=== PATIENT | male | born 1950 | race Caucasian/White ===

== ENCOUNTER 2022-01-31 18:52 | Outpatient (CLI) | payer MEDICARE, BC, SELFPAY ==
--- OUTSIDE RECORDS SUMMARY | 2022-01-31 07:45 | XMS_ITS | Encounter Summary ---
:1950 Author Organization [facility] Address [address] [address] Care Team Providers Name Role Phone Unavailable Primary Care Provider Unavailable Encounter Details Date Type Department Care Team Description 08/21/2005 [facility] Cr Sawyer MD [address] [place] [address] [address] [place] [address] [facility] [phone] [place], [place] [address] (Wo rk) Social History Tobacco Use Types Packs/Day Years Used Date Smoking Tobacco: Never Assessed Sex Assigned at Date Recorded Not on file documented as of this encounter Plan of Treatment Not on filedocumented as of this encounter Visit Diagnoses Not on filedocumented in this encounter
[2022-01-31 09:57] LABS: Albumin* 3.9 g/dL (3.3-5.0); Chloride* 103 mmol/L (96-114)
[2022-01-31 09:59] LABS: Cholesterol* 179 mg/dL (90-199); Potassium* 4.2 mmol/L (3.6-5.1); Sodium* 138 mmol/L (135-149)
[2022-01-31 10:00] LABS: Alkaline Phosphatase* 48 U/L (40-150); Aspartate Amino Transferase* 35 U/L (12-35); Blood Urea Nitrogen* 41 mg/dL (7-30); Carbon Dioxide* 27 mmol/L (20-32); Creatinine* 1.5 mg/dL (0.5-1.5); Estimated Glomerular Filt Rate 49 ml/min; Glucose* 76 mg/dL (60-115); Total Protein* 6.4 g/dL (6.0-8.3)
[2022-01-31 10:01] LABS: Alanine Aminotransferase* 26 U/L (4-50); Calcium* 9.1 mg/dL (8.4-10.6); HDL Cholesterol* 56 mg/dL (>=40); LDL Cholesterol Calculated 83 mg/dL (<100); Triglycerides* 200 mg/dL (40-149)
[2022-01-31 10:26] LABS: PSA Screen* 2.26 ng/mL (0.10-4.00)
== END 2022-01-31 18:53 | disposition home or self-care (01) ==
PROVIDERS: PCP Family Medicine; Visit Provider Family Medicine
DX: E78.5 Hyperlipidemia, unspecified (principal); Z12.5 Encounter for screening for malignant neoplasm of prostate
CPT/HCPCS: 80053; 80061; 84153

== ENCOUNTER 2022-07-07 09:55 | Outpatient (CLI) | payer MEDICARE, BC, SELFPAY | END 2022-07-07 09:56 | disposition home or self-care (01) | LOC: NFLDREF 09:56 | PROVIDERS: PCP Family Medicine; Visit Provider Family Medicine | DX: M79.671 Pain in right foot (principal); I10 Essential (primary) hypertension | CPT/HCPCS: 84550 ==

== ENCOUNTER 2023-04-11 08:19 | Outpatient (CLI) | payer MEDICARE, BC, SELFPAY ==
--- OUTSIDE RECORDS SUMMARY | 2023-04-13 15:43 | XMS_ITS | Encounter Summary ---
Author Name Unknown Organization [facility] Address [address] [place] [address] Care Team Providers Care Medical Physicist Name Role Phone Elsewhere, Pcp Primary Care Provider Unavailabl e Reason for Referral * Outpatient (Routine) - Closed Specialty Diagnoses / Procedures Referred By Contac t Referred To Contact Diagnoses Arthritis Inflammatory (HCC) Pain Foot Right Pain Low Back Chronic Pain Neck Procedures US Musculoskeletal Hand Right Sivan Garcia M.D., Lianna., C.M., M.P.H. [address] [place] [address] [facility] Referral ID Status Reason Start Date Expiration Date Visits Re quested Visits Authorized [id number] Closed 07/25/2022 07/25/2023 1 1 Reason for Visit * Outpatient (Routine) - Closed Specialty Diagnoses / Procedures Referred By Contac t Referred To Contact Diagnoses Arthritis Inflammatory (HCC) Pain Foot Right Pain Low Back Chronic Pain Neck Procedures US Musculoskeletal Hand Right Sivan Garcia M.D., Lianna., C.M., M.P.H. [address] [place] [address] [facility] Referral ID Status Reason Start Date Expiration Date Visits Re quested Visits Authorized [id number] Closed 07/25/2022 07/25/2023 1 1 Encounter Details Date Type Department Care Team (Latest Contact Info) Description 08/30/2022 10:51 AM CDT - 08/30/2022 12:16 PM CDT Hospital Encounter Department of Radiology, [facility], in [place], [place] [address] [place] [address] Sivan Garcia M.D., Lianna., C.M., M.P.H. [address] [place] [address] Arthritis Inflammatory (HCC); Pain Foot Right; Pain Low Back Chronic; Pain Neck Discharge Disposition: Home or Self Care Social History Tobacco Use Types Packs/Day Years Used Date Smoking Tobacco: Never Passive Smoke Exposure: Never Smokeless Tobacco: Never Alcohol Use Standard Drinks/Week Comments No 0 (1 standard drink = 0.6 oz pur e alcohol) Humiliation, Afraid, Rape, and Kick questionnair e Answer Date Recorded Within the last year, have y ou been afraid of your partner or ex-partner? No 06/26/2022 Within the last year, have y ou been humiliated or emotionally abused in other ways by your partner or ex-partner? No Within the last year, have y ou been kicked, hit, slapped, or otherwise physically hurt by your partner or ex-partner? No 06/26/2022 Within the last year, have y ou been raped or forced to have any kind of sexual activity by your partner or ex-partner? No 06/26/2022 Social Connection and Isolat ion Panel [NHANES] Answer Date Recorded In a typical week, how many times do you talk on the phone with family, friends, or neighbors? Three times a week 06/26/2022 How often do you get togethe r with friends or relatives? More than three times a week 06/26/2022 How often do you attend chur or judaism services? More than 4 times per year 06/26/2022 Do you belong to any clubs o r organizations such as christianity groups, unions, fraternal or athletic groups, or school groups? Yes 06/26/2022 How often do you attend meet ings of the clubs or organizations you belong to? 1 to 4 times per year 06/26/2022 Are you , , di vorced, , never , or living with a partner? 06/26/2022 AUDIT-C Answer Date Recorded Q1: How often do you have a drink containing alc ohol? Monthly or less 06/26/2022 Q2: How many drinks containi ng alcohol do you have on a typical day when you are drinking? 1 or 2 06/26/2022 Q3: How often do you have si x or more drinks on one occasion? Never 06/26/2022 Overall Financial Resource Strain (CARDIA) Answe r Date Recorded How hard is it for you to pa y for the very basics like food, housing, medical care, and heating? Not hard at all 06/26/2022 [facility] of Occupat ional Health - Occupational Stress Questionnaire Answer Date Recorded Do you feel stress - tense, restless, nervous, or anxious, or unable to sleep at night because your mind is troubled all the time - these days? Only a little 06/26/2022 Exercise Vital Sign Answer Date Recorde d On average, how many days pe r week do you engage in moderate to strenuous exercise (like a brisk walk)? 3 days 06/26/2022 On average, how many minutes do you engage in exercise at this level? 30 min 06/26/2022 Hunger Vital Sign Answer Date Recorded Within the past 12 months, y ou worried that your food would run out before you got the money to buy more. Never true 06/27/19 23 Within the past 12 months, t he food you bought just didn't last and you didn't have money to get more. Never true 06/26/2022 PRAPARE - Transportation Answer Date Re corded In the past 12 months, has l ack of transportation kept you from medical appointments or from getting medications? No 11/2022 In the past 12 months, has l ack of transportation kept you from meetings, work, or from getting things needed for daily living? No 06/26/2022 Housing Stability Vital Sign Answer Adan e Recorded In the last 12 months, was t here a time when you were not able to pay the mortgage or rent on time? No 06/26/2022 In the last 12 months, how many places have you lived? 1 06/26/2022 In the last 12 months, was t here a time when you did not have a steady place to sleep or slept in a fdc (including now)? No 06/26/2022 Nutrition Answer Date Recorded Nutrition: EVOO Fat Source No 06/26 On average, how many serving s of fruits and vegetables do you eat per day (serving size is equal to 1 cup or approximately the size of a tennis ball)? 2-3 06/26/2022 Dental Answer Date Recorded Dental: Regular Dentist Yes 06/27/19 Employment Answer Date Recorded Employment status Retired 06/26/2022 Education Answer Date Recorded What is the highest level of school you have completed or the highest degree you have received? Associate degree: occupational, technical, or vocational program 06/26/2022 Sex and Gender Information Value Date Recorded Sex Assigned at Male 04/09/2018 9:30 PM STUDENT CAREER DEVELOPMENT SPECIALIST Gender Identity Male 04/09/2018 9:30 PM STUDENT CAREER DEVELOPMENT SPECIALIST Sexual Orientation Straight 04/09/2018 9: 30 PM STUDENT CAREER DEVELOPMENT SPECIALIST documented as of this encounter Medications at Time of Discharge Medication Sig Dispensed Refills Start Date End Date acetaminophen (TYLENOL ARTHRITIS ORAL) Take 1 tablet by mouth daily as needed (pain). Takes 1 once a day to twice a day 0 07/17/2009 azithromycin (ZITHROMAX) 250 mg tablet Take 250 mg by mouth as needed. 0 04/04/2022 fenofibrate nanocrystallized (TRICOR) 145 mg tablet Take 1 tablet by mouth daily. 0 10/19/2011 Flowflex COVID-19 Ag Home Test kit use as directed* 0 07/26/2022 hydroCHLOROthiazide (HYDRODIURIL) 25 mg tablet Take 1 tablet by mouth daily. 0 12/21/2018 hydrocodone/acetaminophen (VICODIN ORAL) Take 0.5-1 tablets by mouth at bedtime as needed. 5/500 mg (1/2 tab -uses about 3 times a month for back pain) 0 10/19/2011 meloxicam (MOBIC) 15 mg tablet Take 1 tablet by mouth daily. 0 10/19/2011 Rx albuterol (RX PROVENTIL HFA,VENTOLIN HFA) 90 mcg/actuation inhaler Inhale 2 puffs 4 (four) times a day as needed. via song and dance performer tube; may also use every 4 hrs as needed. 0 07/08/2015 sildenafil (REVATIO) 20 mg tablet Take 40mg daily if needed 0 12/21/2018 tiZANidine (ZANAFLEX) 2 mg tablet Take 2 mg by mouth at bedtime. For right leg muscle spasm 0 06/25/2022 methylPREDNISolone (MEDROL) 4 mg tablet Take 1 tablet by mouth daily. 0 07/08/2015 09/22/2022 documented as of this encounter Plan of Treatment Not on file documented as of this encounter Procedures Procedure Name Priority Date/Time Associated Diagnosis Comments US MUSCULOSKELETAL HAND RIGHT 08/30/2022 11:36 AM CDT Arthritis Inflammatory (HCC) Pain Foot Right Pain Low Back Chronic Pain Neck documented in this encounter Results * US Musculoskeletal Hand Right (08/30/2022 11:36 AM CDT) Anatomical Region Laterality Modality Hand, Ultrasound RST LOS, Mu sculoskeletal ARZ LOS, Ultrasound ARZ LOS, Muskuloskeletal FLA LOS Right Ultrasound 08/30/2022 11:1 1 AM CDT Impressions 08/30/2022 11:59 AM CDT Mild grayscale and mild hypervascular synovitis about the wrist. Moderate grayscale and mild to moderate hypervascular synovitis 2nd MCP. Mild to moderate grayscale and hypervascular synovitis 1st MCP. Additional small dystrophic calcifications about the 1st and 2nd MCP suggestive of CPPD appreciated. No other hypervascular synovitis throughout the interrogated MCPs and PIPs. No hypervascular tenosynovitis. No sonographic erosions. Scattered mild areas of chondrocalcinosis as seen on prior radiographs. Overall constellation of findings are nonspecific and could be secondary to degenerative and crystalline arthritis. A superimposed component of inflammatory arthritis is not excluded. Narrative 08/30/2022 11:59 AM CDT EXAM: US MUSCULOSKELETAL HAND RIGHT COMPARISON: Radiographs 07/25/2022 Procedure Note Gal Ellington M.D. - 08/30/2022 EXAM: US MUSCULOSKELETAL HAND RIGHT COMPARISON: Radiographs 07/25/2022 IMPRESSION: Mild grayscale and mild hypervascular synovitis about the wrist. Moderategrayscale and mild to moderate hypervascular synovitis 2nd MCP. Mild to moderategrayscale and hypervascular synovitis 1st MCP. Additional small dystrophic calcifications about the1st and 2nd MCP suggestive of CPPD appreciated. No other hypervascular synovitis throughout theinterrogated MCPs and PIPs. No hypervascular tenosynovitis. No sonographic erosions. Scattered mild areasof chondrocalcinosis as seen on prior radiographs. Overall constellation of findings are nonspecific and could be secondaryto degenerative and crystalline arthritis. A superimposed component of inflammatory arthritisis not excluded. Sivan Garcia M.D., Lianna., C.M., M.P.H. IMG US PROCEDURES documented in this encounter Visit Diagnoses Diagnosis Arthritis Inflammatory (HCC) Pain Foot Right Pain Low Back Chronic Pain Neck documented in this encounter Care Teams Medical Physicist Relationship Specialty Start Date End Date Elsewhere, Pcp PCP - General Family Medicine 03/09/17 documented as of this encounter
--- OUTSIDE RECORDS SUMMARY | 2023-04-13 15:43 | XMS_ITS | Clinical Summary ---
Author Name Unknown Organization [facility] Address [address] [address] Care Team Providers Care Auto Top Mechanic Name Role Phone Tez Diane MD Primary Care Provider [phone] Source Comments You are receiving this document as you are listed as the primary care provider,follow-up provider, or the patient has been referred to you for consultation.This is in compliance with the Medicare and[facility] Hospital[facility] EHR Incentive Program,which states Providers who transition their patient to another setting of careor provider of care or refers their patient to another provider of care shouldprovide summary care record for each transition of care or referral. [facility] Allergies Active Allergy Reactions Criticality Noted Date Comments Berries 11/23/2016 Strawberries Lactase-Lactobacillus 11/23/2016 Medications Medication Sig Dispensed Refills Start Date End Date Status fenofibrate (TRICOR) 145 MG tablet Take 145 mg by mouth daily. 0 Active methylPREDNISolone (MEDROL) 2 MG tablet Take 2 mg by mouth daily. 0 Active hydroCHLOROthiazide 12.5 MG capsule Take 12.5 mg by mouth daily. 0 Active Meloxicam (MOBIC) 15 MG tablet Take 15 mg by mouth daily. 0 Active Active Problems Problem Noted Date Diagnosed Date Rupture of left proximal biceps tendon 9 Sternoclavicular (joint) (ligament) sprain 12/12 Immunizations Name Administration Dates Next Due Flu Vac (3+ yrs) 12/31/2007, 7,03/08/2006,01/21/2005,01/05/2004,,12/21/2001,02/27/2001 PPSV23 (Pneumovax) 02/27/2001 Td 12/21/2001 Social History Tobacco Use Types Packs/Day Years Used Date Smoking Tobacco: Never Smokeless Tobacco: Never Alcohol Use Standard Drinks/Week Comments Not Asked 0 (1 standard drink = 0.6 oz pur e alcohol) Sex and Gender Information Value Date Recorded Sex Assigned at Not on file Gender Identity Not on file Sexual Orientation Not on file Last Filed Vital Signs Vital Sign Reading Time Taken Comments Blood Pressure 137/90 09/27/2018 11:08 AM CDT Pulse 68 09/23/2009 2:15 PM CDT Temperature 36.7 ??C (98.1 ??F) 09/27/2018 1 1:08 AM CDT Respiratory Rate - - Oxygen Saturation - - Inhaled Oxygen Concentration - - Weight 105.5 kg (232 lb 9.6 oz) 019 11:08 AM CDT Height 167.6 cm (5' 6) 09/27/2018 11:0 8 AM CDT Body Mass Index 37.54 09/27/2018 11:08 AM CDT Plan of Treatment Health Maintenance Due Date Last Done Comments Colon Cancer Screening Plan Due 1950 Hep C Screening (Preventive Services) 1950 Medicare Annual Wellness Visit 1950 COVID-19 Vaccine (#1) 05/08/1951 Cholesterol 1984 Zoster/Shingles (2 of 3) 04/17/2012 02/21/2012 Influenza (#1) 2022 12/20/2019, 10/0 06/2018, 01/04/2017, Additional history exists DTaP/Tdap/Td (3 - Tdap) 02/19/2023 02/20/20 13, 02/04/2013, 12/21/2001 Pneumococcal 65+ Yrs Completed 01/25/2017, 01/15/2015, 03/20/2007, Additional history exists HepA Aged Out No longer eligi ble based on patient's age to complete this topic HepB Aged Out No longer eligi ble based on patient's age to complete this topic Hib Aged Out No longer eligi ble based on patient's age to complete this topic IPV (Polio) Aged Out No longer eligi ble based on patient's age to complete this topic MCV4 Aged Out No longer eligi ble based on patient's age to complete this topic Care Teams Auto Top Mechanic Relationship Specialty Start Date End Date Tez Diane MD [address] [place], [place] [id number] PCP - General 08/12/11
--- OUTSIDE RECORDS SUMMARY | 2023-04-13 15:43 | XMS_ITS | Clinical Summary ---
Author Name Unknown Organization [facility] Address [address] [place] [address] Care Team Providers Care District Manager Primary Care Sales Name Role Phone Elsewhere, Pcp Primary Care Provider Unavailabl e Source Comments Patient records contain information from all sites at [facility]. For routine questions regarding patient records, call [phone] during business hours, M-F 8:00 AM - 5:00 PM Central Time. Record requests for emergency care only can be directed to [phone] at any time.[facility] Allergies Active Allergy Reactions Criticality Noted Date Comments Latex Other (see comments) 07/15/[address] guided epidural injection [place] Other (see comments),Itching High 11/23/2016 Strawberries Fresh Strawberries only Medications Medication Sig Dispensed Refills Start Date End Date Status Rx albuterol (RX PROVENTIL HFA,VENTOLIN HFA) 90 mcg/actuation inhaler Inhale 2 puffs 4 (four) times a day as needed. via coal equipment operator tube; may also use every 4 hrs as needed. 0 07/08/2015 Active meloxicam (MOBIC) 15 mg tablet Take 1 tablet by mouth daily. 0 10/19/2011 Active fenofibrate nanocrystallized (TRICOR) 145 mg tablet Take 1 tablet by mouth daily. 0 10/19/2011 Active acetaminophen (TYLENOL ARTHRITIS ORAL) Take 1 tablet by mouth daily as needed (pain). Takes 1 once a day to twice a day 0 07/17/2009 Active hydrocodone/acetaminophe n (VICODIN ORAL) Take 0.5-1 tablets by mouth at bedtime as needed. 5/500 mg (1/2 tab -uses about 3 times a month for back pain) 0 10/19/2011 Active sildenafil (REVATIO) 20 mg tablet Take 40mg daily if needed 0 12/21/2018 Active hydroCHLOROthiazide (HYDRODIURIL) 25 mg tablet Take 1 tablet by mouth daily. 0 12/21/2018 Active tiZANidine (ZANAFLEX) 2 mg tablet Take 2 mg by mouth at bedtime. For right leg muscle spasm 0 06/25/2022 Active azithromycin (ZITHROMAX) 250 mg tablet Take 250 mg by mouth as needed. 0 04/04/2022 Active Flowflex COVID-19 Ag Home Test kit use as directed* 0 07/26/2022 Activ e methylPREDNISolone (MEDROL) 4 mg tablet Take 4 mg by mouth daily. 0 Active mv-min/folic/K1/lycopen/ lutein (MEN 50 PLUS MULTIVITAMIN ORAL) Take 1 tablet by mouth daily. 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 from Last 3 Months Immunizations Name Administration Dates Next Due HZV (ZOSTAVAX) 02/21/2012 Influenza Split 01/28/2013,02/21/2012 Pneumococcal, Unspecified 03/20/2007 Tdap 02/04/2013 Social History Tobacco Use Types Packs/Day Years [...] How often do you attend chur or buddhist services? More than 4 times per year 06/26/2022 Do you belong to any clubs o r organizations such as anabaptist groups, unions, fraternal or athletic groups, or [...] and heating? Not hard at all 06/26/2022 [facility] of Occupat ional Health - Occupational Stress [...] money to buy more. Never true 06/27/19 Within the past 12 months, t he [...] place to sleep or slept in a senior living (including now)? No 06/26/2022 Nutrition Answer Date [...] Sex Assigned at Male 04/09/2018 9:30 PM FRONT OFFICE CLERK Gender Identity Male 04/09/2018 9:30 PM FRONT OFFICE CLERK Sexual Orientation Straight 04/09/2018 9: 30 PM FRONT OFFICE CLERK Last Filed Vital Signs Vital Sign Reading Time Taken Comments Blood Pressure 136/89 07/25/2022 12:58 PM CDT Pulse 76 07/25/2022 12:58 PM CDT Temperature 36.2 ??C (97.2 ??F) 07/25/2022 1 2:58 PM CDT Respiratory Rate - - Oxygen Saturation 97% 06/28/2022 8:51 AM CDT Inhaled Oxygen Concentration - - Weight 94.2 kg (207 lb 10.8 oz) 023 12:58 PM CDT Height 165.6 cm (5' 5.2) 07/25/2022 12 :58 PM CDT Body Mass Index 34.35 07/25/2022 12:58 PM CDT Plan of Treatment Health Maintenance Due Date Last Done Comments CT Colonography 1950 Cologuard 1950 FIT 1950 Zoster Vaccines (2 of 3) 04/17/2012 02/21/2012 COVID-19 Vaccine (4 - 2022-2 4 season) 2022 02/18/2021, 06/23/2020, 05/26/2020 DTaP,Tdap,and Td Vaccines (3 - Td or Tdap) 02/19/2023 02/19/2013, 02/04/2013, 12/21/2001 Depression Screening (Annual PHQ-2) 03/20/2023 Fall Risk Screen (Annual) 03/20/2023 Fasting Glucose for Diabetes Screening 07/25/2025 07/25/2022, 04/05/2019, 01/20/2019, Additional history exists Colonoscopy 09/12/2032 09/12/2022, 05/2012 (Performed elsewhere), 02/20/2003 Colorectal Cancer Screening 09/12/2032 Pneumococcal vaccine (65+ years) Completed 01/25/2017, 01/15/2015, 03/20/2007, Additional history exists Influenza Vaccine Completed 01/26/2023, , 02/09/2021, Additional history exists Medical Devices Implanted Type Area Manager Of Compensation Device Identifier Shelf Expiration Date Model / Serial / Lot Ocular Lens-03/20/1997 Implanted:03/1997 (Quantity not on file) Ocular Lens Bilatera l: Eye Description:Both eyes Spine Implant-03/20/19 20 Implanted:03/2019 (Quantity not on file) Spine Implant Bilatera l: Back Care Teams District Manager Primary Care Sales Relationship Specialty Start Date End Date Elsewhere, Pcp PCP - General Family Medicine 03/09/17
--- OUTSIDE RECORDS SUMMARY | 2023-04-13 15:43 | XMS_ITS | Encounter Summary ---
Author Name Unknown Organization [facility] Address [address] [place] [address] Care Team Providers Care Designer Architect Name Role Phone Elsewhere, Pcp Primary Care Provider Unavailabl e Reason for Visit * Reason Comments Pain * Appointment Request (Routine) - Closed Specialty Diagnoses / Procedures Referred By Contac t Referred To Contact Orthopedic Surgery Diagnoses Subluxation Sternoclavicular Closed Initial Referral ID Status Reason Start Date Expiration Date Visits Re quested Visits Authorized [id number] Closed 06/23/2022 06/23/2023 1 1 Encounter Details Date Type Department Care Team (Latest Contact Info) Description 09/23/2022 11:00 AM CDT Comprehensive Visit Department of Orthopedic Surgery in [place], [place] [address] [place] [address] José Wright M.D., Ph.D. [address] [place] [address] Pain Shoulder Right (Primary Dx) Social History Tobacco Use Types Packs/Day Years [...] How often do you attend chur or latter-day services? More than 4 times per year 06/26/2022 Do you belong to any clubs o r organizations such as quaker groups, unions, fraternal or athletic groups, or [...] and heating? Not hard at all 06/26/2022 [facility] of Occupat ional Health - Occupational Stress [...] place to sleep or slept in a long-term (including now)? No 06/26/2022 Nutrition Answer Date [...] Sex Assigned at Male 04/09/2018 9:30 PM APPLIANCE SERVICE TECHNICIAN Gender Identity Male 04/09/2018 9:30 PM APPLIANCE SERVICE TECHNICIAN Sexual Orientation Straight 04/09/2018 9: 30 PM APPLIANCE SERVICE TECHNICIAN documented as of this encounter Progress Notes * José Wright M.D., Ph.D. - 09/23/2022 11:00 AM CDT This patient returns today for a follow-up evaluation regarding his right SC joint. I saw this patient for the first time in consultation in the year 2018. 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 Later on, he suffered an accident that has created additional instability of the joint and now he has more discomfort and more difficulty. 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 He came today with a new CT scan that shows evidence of progression of his osteoarthritis more evidence of instability. At this point, his seems to be more affected by his condition and his approaching a position where he might consider surgery but he is not decided just yet. We had a long discussion 1 more time about what surgery typically entails, which includes resection of the medial end of the clavicle and reconstruction of the ligaments of the SC joint with an allograft. We discussed the details of the operation as well as possible complications, which include but are not limited to infection, nerve injury, bleeding, blood clots, persistent pain, persistent stiffness,and failure of the ligament to heal with recurrent instability. He is going to go home and think about it. If he calls requesting surgery, he can be scheduled for a right SC joint resection and reconstruction at his convenience. All questions were answered. documented in this encounter Plan of Treatment Not on file documented as of this encounter Visit Diagnoses Diagnosis Pain Shoulder Right- Primary documented in this encounter Care Teams Designer Architect Relationship Specialty Start Date End Date Elsewhere, Pcp PCP - General Family Medicine 03/09/17 documented as of this encounter
--- OUTSIDE RECORDS SUMMARY | 2023-04-13 15:43 | XMS_ITS | Encounter Summary ---
Author Name Unknown Organization [facility] Address [address] [place] [address] Care Team Providers Care Sulfuric Acid Plant Supervisor Name Role Phone Elsewhere, Pcp Primary Care Provider Unavailabl e Reason for Referral * MRI/CAT/PET Scan (Routine) - Closed Specialty Diagnoses / Procedures Referred By Contac t Referred To Contact Radiology Diagnoses Pain Shoulder Right Procedures CT Sternoclavicular Joint Bilateral without IV Contrast Trupti Aguayo P.A.-C., M.S. 200 [place] [phone] [facility] Referral ID Status Reason Start Date Expiration Date Visits Re quested Visits Authorized [id number] Closed 07/05/2022 07/05/2023 1 1 Reason for Visit * MRI/CAT/PET Scan (Routine) - Closed Specialty Diagnoses / Procedures Referred By Contac t Referred To Contact Radiology Diagnoses Pain Shoulder Right Procedures CT Sternoclavicular Joint Bilateral without IV Contrast Trupti Aguayo P.A.-C., M.S. [address] [place] [phone] [facility] Referral ID Status Reason Start Date Expiration Date Visits Re quested Visits Authorized [id number] Closed 07/05/2022 07/05/2023 1 1 Encounter Details Date Type Department Care Team (Latest Contact Info) Description 09/23/2022 7:29 AM CDT - 09/23/2022 11:59 PM CDT Hospital Encounter Department of Radiology, [facility], in [place], [place] [address] [place] [address] Trupti Aguayo P.A.-C., M.S. [address] [place] [phone] Pain Shoulder Right Discharge Disposition: Home or Self Care Social [...] 06/26/2022 How often do you attend chur ch or adventism services? More than 4 times per year 06/26/2022 Do you belong to any clubs o r organizations such as alevism groups, unions, fraternal or athletic groups, or [...] and heating? Not hard at all 06/26/2022 [facility] - Occupational [...] place to sleep or slept in a intermediate (including now)? No 06/26/2022 Nutrition Answer Date [...] Sex Assigned at Male 04/09/2018 9:30 PM CRM TECHNICAL LEAD Gender Identity Male 04/09/2018 9:30 PM CRM TECHNICAL LEAD Sexual Orientation Straight 04/09/2018 9: 30 PM CRM TECHNICAL LEAD documented as of this encounter Medications at [...] (four) times a day as needed. via shirt folding machine operator tube; may also use every 4 hrs as needed. 0 07/08/2015 sildenafil (REVATIO) 20 mg tablet Take 40mg daily if needed 0 12/21/2018 tiZANidine (ZANAFLEX) 2 mg tablet Take 2 mg by mouth at bedtime. For right leg muscle spasm 0 06/25/2022 documented as of this encounter Plan of Treatment Not on file documented as of this encounter Procedures Procedure Name Priority Date/Time Associated Diagnosis Comments CT STERNOCLAVICULAR JOINT BILATERAL WITHOUT IV CONTRAST RAD - Routine (most inpatients and all outpatients) 09/23/2022 7:47 AM CDT Pain Shoulder Right documented in this encounter Results * CT Sternoclavicular Joint Bilateral without IV Contrast (09/23/2022 7:47 AM CDT) Anatomical Region Laterality Modality Shoulder, Upper Extremity, Musculoskeletal RST LOS, Musculoskeletal ARZ LOS, Muskuloskeletal FLA LOS Bilateral Computed Tomography, Computed Tomography 09/23/2022 8:54 AM CDT Impressions 09/23/2022 11:18 AM CDT Bilateral sternoclavicular joint osteoarthritis, greater on the right, slightly progressed from 08/15/2017. Narrative 09/23/2022 11:18 AM CDT EXAM: ??CT STERNOCLAVICULAR JOINT BILATERAL WITHOUT IV CONTRAST 3D images were created on an independent workstation as ordered by the treating provider and reviewed by the radiologist to assist in treatment planning. COMPARISON: ??CT chest 08/15/2017 FINDINGS: Right sternoclavicular joint osteoarthritis characterized by joint space narrowing, subchondral sclerosis and cystic changes with surrounding synovial thickening, slightly progressed from 08/15/2018. There is irregularity of the medial right clavicle which may be secondary to degenerative change or remote trauma and is similar in appearance to the comparison chest CT. Moderate left sternoclavicular joint osteoarthritis characterized by mild joint space narrowing and subchondral cystic changes, also slightly progressed from prior. Tiny osseous debris is present about the sternoclavicular joints. Alignment at bilateral sternoclavicular joint is maintained. No acute fracture. Procedure Note Ryan Rosales M.D. - 09/23/2022 EXAM: CT STERNOCLAVICULAR JOINT BILATERAL WITHOUT IV CONTRAST 3D images were created on an independent workstation as ordered by thetreating provider and reviewed by the radiologist to assist in treatment planning. COMPARISON: CT chest 08/15/2017 FINDINGS: Right sternoclavicular joint osteoarthritis characterized by joint spacenarrowing, subchondral sclerosis and cystic changes with surrounding synovial thickening,slightly progressed from 08/15/2018. There is irregularity of the medial right clavicle which maybe secondary to degenerative change or remote trauma and is similar in appearance to thecomparison chest CT. Moderate left sternoclavicular joint osteoarthritis characterized by mildjoint space narrowing and subchondral cystic changes, also slightly progressed from prior. Tinyosseous debris is present about the sternoclavicular joints. Alignment at bilateral sternoclavicularjoint is maintained. No acute fracture. IMPRESSION: Bilateral sternoclavicular joint osteoarthritis, greater on the right,slightly progressed from 08/15/2017. Trupti Aguayo P.A.-C., M.S. IMG CT [place] OCEDURES documented in this encounter Visit Diagnoses Diagnosis Pain Shoulder Right documented in this encounter Care Teams Sulfuric Acid Plant Supervisor Relationship Specialty Start Date End Date Elsewhere, Pcp PCP - General Family Medicine 03/09/17 documented as of this encounter
--- OUTSIDE RECORDS SUMMARY | 2023-04-13 15:43 | XMS_ITS | Encounter Summary ---
Author Name Unknown Organization [facility] Address [address] [place] [address] Care Team Providers Care Recycling Sorter Name Role Phone Elsewhere, Pcp Primary Care Provider Unavailabl e Encounter Details Date Type Department Care Team (Latest Contact Info) Description 09/26/2022 9:48 AM CDT - 09/26/2022 11:59 PM CDT Hospital Encounter Department of Laboratory Medicine and Pathology, [facility] in [place], [place] [address] [place] [phone] Sivan Garcia M.D., Lianna., C.M., M.P.H. [address] [place] [phone] Arthritis Inflammatory (HCC); Pain Foot Right; Pain [...] How often do you attend chur or yarsanism services? More than 4 times per year 06/26/2022 Do you belong to any clubs o r organizations such as evangelical groups, unions, fraternal or athletic groups, or [...] and heating? Not hard at all 06/26/2022 [facility] ional Health - Occupational [...] place to sleep or slept in a fci (including now)? No 06/26/2022 Nutrition Answer Date [...] Sex Assigned at Male 04/09/2018 9:30 PM INK TECHNICIAN Gender Identity Male 04/09/2018 9:30 PM INK TECHNICIAN Sexual Orientation Straight 04/09/2018 9: 30 PM INK TECHNICIAN documented as of this encounter Medications at [...] 1 tablet by mouth daily. 0 10/19/2011 methylPREDNISolone (MEDROL) 4 mg tablet Take 4 mg by mouth daily. 0 mv-min/folic/K1/lycopen/lute in (MEN 50 PLUS MULTIVITAMIN ORAL) Take 1 tablet by mouth daily. 0 Rx albuterol (RX PROVENTIL HFA,VENTOLIN HFA) 90 mcg/actuation inhaler Inhale 2 puffs 4 (four) times a day as needed. via ductfixing plumber tube; may also use every 4 hrs [...] Procedure Name Priority Date/Time Associated Diagnosis Comments IRON AND TOT IRON-BINDING CAPACITY, S/P Routine 09/26/2022 10:07 AM CDT Arthritis Inflammatory (HCC) Pain Foot Right Pain Low Back Chronic Pain Neck CBC WITH DIFFERENTIAL, B Routine 09/26/2022 10:07 AM CDT Arthritis Inflammatory (HCC) Pain Foot Right Pain Low Back Chronic Pain Neck C-REACTIVE PROTEIN (CRP), S/P Routine 09/26/2022 10:07 AM CDT Arthritis Inflammatory (HCC) Pain Foot Right Pain Low Back Chronic Pain Neck BUN (BLOOD UREA NITROGEN), S/P Routine 09/26/2022 10:07 AM CDT Arthritis Inflammatory (HCC) Pain Foot Right Pain Low Back Chronic Pain Neck CREATININE WITH EGFR, S/P Routine 09/26/2022 10:07 AM CDT Arthritis Inflammatory (HCC) Pain Foot Right Pain Low Back Chronic Pain Neck documented in this encounter Results * (ABNORMAL) Iron and Total Iron-Binding Capacity (09/26/2022 10:07 AM CDT) Pathologist [facility] Iron 100 50 - 150 mcg/dL 09/26/2022 12:13 PM CDT DTL Total Iron Binding Capacity 426(H) 250 - 400 mcg/dL 09/26/2022 12:13 PM CDT DTL Percent Saturation 23 14 - 50 % 09/26/2022 12:13 PM CDT DTL Blood (Blood, Venous) 09/26/2022 10:07 AM CDT 09/26/2022 11:29 AM CDT Sivan Garcia M.D., M.D., C.M., M.P.H. LAB BLOOD ADD-ON Performing Organization Address City/[facility]/ZIP Co de Phone Number [facility] 200 [place] [address], [facility] 200 [place] [address] * (ABNORMAL) CRP (C-Reactive Protein) (09/26/2022 10:07 AM CDT) C-Reactive Protein (CRP), S 6.2(H) <5.0 mg/L 09/26/2022 12:13 PM CDT DTL Blood (Blood, Venous) 09/26/2022 10:07 AM CDT 09/26/2022 11:29 AM CDT Sivan Garcia M.D., Lianna., C.M., M.P.H. LAB BLOOD ADD-ON Performing Organization Address City/[facility]/ZIP Co de Phone Number [facility] 200 [place], [place] [phone] [place] [address] [facility] 200 [place] [address] * (ABNORMAL) BUN (Blood Urea Nitrogen) (09/26/2022 10:07 AM CDT) BUN (Blood Urea Nitrogen), S 35(H) 8 - 24 mg/dL 09/26/2022 12:56 PM CDT DTL Blood (Blood, Venous) 09/26/2022 10:07 AM CDT 09/26/2022 11:29 AM CDT Sivan Garcia M.D., Lianna., C.M., M.P.H. LAB BLOOD ADD-ON Performing Organization Address City/[facility] Co de Phone Number [facility] 200 [place] [address] * (ABNORMAL) Creatinine with Estimated GFR (09/26/2022 10:07 AM CDT) Creatinine 1.62(H) 0.74 - 1.35 mg/dL 09/26/2022 12:13 PM CDT DTL Estimated GFR (eGFR) 45(L) >=60 mL/min/BSA 09/26/2022 12:13 PM CDT DTL Comment: Estimated GFR calculated using the 2020 CKD_EPI creatinine equation. Blood (Blood, Venous) 09/26/2022 10:07 AM CDT 09/26/2022 11:29 AM CDT Sivan Garcia M.D., M.D., C.M., M.P.H. LAB BLOOD ADD-ON [facility] 200 [place], [place] [phone] [place] [address] [address] * (ABNORMAL) CBC with Differential, Blood (09/26/2022 10:07 AM CDT) Hemoglobin 16.5 13.2 - 16.6 g/dL 09/26/2022 10:57 AM CDT DTL Hematocrit 48.4 38.3 - 48.6 % 09/26/2022 10:57 AM CDT DTL Erythrocytes 5.01 4.35 - 5.65 x10(12)/L 09/26/2022 10:57 AM CDT DTL MCV 96.6 78.2 - 97.9 fL 09/26/2022 10:57 AM CDT DTL RBC Distrib Width 13.7 11.8 - 14.5 % 09/26/2022 10:57 AM CDT DTL Platelet Count 309 135 - 317 x10(9)/L 09/26/2022 10:57 AM CDT DTL Leukocytes 9.3 3.4 - 9.6 x10(9)/L 09/26/2022 10:57 AM CDT DTL Neutrophils 7.38(H) 1.56 - 6.45 x10(9)/L 09/26/2022 10:57 AM CDT DTL Lymphocytes 1.06 0.95 - 3.07 x10(9)/L 09/26/2022 10:57 AM CDT DTL Monocytes 0.60 0.26 - 0.81 x10(9)/L 09/26/2022 10:57 AM CDT DTL Eosinophils 0.20 0.03 - 0.48 x10(9)/L 09/26/2022 10:57 AM CDT DTL Basophils 0.09(H) 0.01 - 0.08 x10(9)/L 09/26/2022 10:57 AM CDT DTL Blood (Blood, Venous) 09/26/2022 10:07 AM CDT 09/26/2022 10:28 AM CDT Sivan Garcia M.D., Lianna., C.M., M.P.H. LAB BLOOD ADD-ON [facility] [address] [place] [address], [facility] [address] [place] [address] documented in this encounter Visit Diagnoses Diagnosis Arthritis Inflammatory (HCC) Pain Foot Right Pain Low Back Chronic Pain Neck documented in this encounter Care Teams Recycling Sorter Relationship Specialty Start Date End Date Elsewhere, Pcp PCP - General Family Medicine 03/09/17 documented as of this encounter
--- OUTSIDE RECORDS SUMMARY | 2023-04-13 15:43 | XMS_ITS | Encounter Summary ---
Author Name Unknown Organization [facility] Address [address] [place] [address] Care Team Providers Care Medical Asst Name Role Phone Elsewhere, Pcp Primary Care Provider Unavailabl e Encounter Details Date Type Department Care Team (Late st Contact Info) Description 04/13/2023 Clinical Communication Division of Rheumatology in [place], [place] [address] [place] [phone] Sivan Garcia M.D., MDonald., C.M., M.P.H. [address] [place] [phone] Social History Tobacco Use Types Packs/Day Years [...] often do you attend chur ch or jew services? More than 4 times per year 06/26/2022 Do you belong to any clubs o r organizations such as religion groups, unions, fraternal or athletic groups, or [...] and heating? Not hard at all 06/26/2022 [facility]at ional Health - Occupational Stress [...] Sex Assigned at Male 04/09/2018 9:30 PM DIESEL ENGINE ASSEMBLER Gender Identity Male 04/09/2018 9:30 PM DIESEL ENGINE ASSEMBLER Sexual Orientation Straight 04/09/2018 9: 30 PM DIESEL ENGINE ASSEMBLER documented as of this encounter Plan of Treatment Not on file documented as of this encounter Visit Diagnoses Not on filedocumented in this encounter Care Teams Medical Asst Relationship Specialty Start Date End Date Elsewhere, Pcp PCP - General Family Medicine 03/09/17 documented as of this encounter
--- OUTSIDE RECORDS SUMMARY | 2023-04-13 15:43 | XMS_ITS ---
Author Name Unknown Organization [facility] Address [address] [place] [address] Care Team Providers Care Economic Development Specialist Name Role Phone Unavailable Unavailable Unavailable Surgery Details Not on file Complications Check Surgery Details section. Procedure Estimated Blood Loss Check Surgery Details section. Procedure Findings Check Surgery Details section. Procedure Specimens Taken Check Surgery Details section.
--- OUTSIDE RECORDS SUMMARY | 2023-04-13 15:43 | XMS_ITS | Referral Summary ---
Author Name Unknown Organization [facility] Address [address] [place] [address] Care Team Providers Care Director Of Blood Name Role Phone Elsewhere, Pcp Primary Care Provider Unavailabl e Source Comments Patient records contain information from all sites at [facility]. For routine questions regarding patient records, call [phone] during business hours, M-F 8:00 AM - 5:00 PM Central Time. Record requests for emergency care only can be directed to [phone] at any time.[facility] Encounters Date Type Department Care Team Description 04/13/2023 Clinical Communication Division of Rheumatology in [place], [place] [address] [place] [phone] Sivan Garcia M.D., MDonald., C.M., M.P.H. from Last 3 Months Allergies Active Allergy Reactions Criticality Noted Date Comments Latex Other (see comments) 07/15/[address] guided epidural injection [place] Other (see comments),Itching High 11/23/2016 Strawberries Fresh Strawberries only Medications Medication Sig Dispensed Refills Start Date End Date Status Rx albuterol (RX PROVENTIL HFA,VENTOLIN HFA) 90 mcg/actuation inhaler Inhale 2 puffs 4 (four) times a day as needed. 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 More than 4 times per year 06/26/2022 Do you belong to any clubs o r organizations such as yazidi groups, unions, fraternal or athletic groups, or [...] and heating? Not hard at all 06/26/2022 [facility] Occupat ional Health - Occupational Stress [...] Sex Assigned at Male 04/09/2018 9:30 PM MANAGER TERMINAL Gender Identity Male 04/09/2018 9:30 PM MANAGER TERMINAL Sexual Orientation Straight 04/09/2018 9: 30 PM MANAGER TERMINAL Last Filed Vital Signs Vital Sign Reading [...] 07/25/2022 12:58 PM CDT Plan of Treatment Not on file Medical Devices Implanted Type Area Management Professor Device Identifier Shelf Expiration Date Model / Serial / Lot Ocular Lens-03/20/1997 Implanted:03/1997 (Quantity not on file) Ocular Lens Bilatera l: Eye Description:Both eyes Spine Implant-03/20/19 Implanted:03/2019 (Quantity not on file) Spine Implant Bilatera l: Back Care Teams Director Of Blood Relationship Specialty Start Date End Date Elsewhere, Pcp PCP - General Family Medicine 03/09/17
--- OUTSIDE RECORDS SUMMARY | 2023-04-13 15:43 | XMS_ITS | Encounter Summary ---
Author Name Unknown Organization [facility] Address [address] [place] [address] Care Team Providers Care Material Handler 1St Shift Name Role Phone Elsewhere, Pcp Primary Care Provider Unavailabl e Reason for Referral * MRI/CAT/PET Scan (Routine) - Closed Specialty Diagnoses / Procedures Referred By Contac t Referred To Contact Radiology Diagnoses Arthritis Inflammatory (HCC) Pain Foot Right Pain Low Back Chronic Pain Neck Procedures MR Musculoskeletal Pelvis without and with IV Contrast Sivan Garcia M.D., Lianna., C.M., M.P.H. 200 [place] [phone] [facility] Referral ID Status Reason Start Date Expiration Date Visits Re quested Visits Authorized [id number] Closed 07/25/2022 07/25/2023 1 1 Reason for Visit * MRI/CAT/PET Scan (Routine) - Closed Specialty Diagnoses / Procedures Referred By Contac t Referred To Contact Radiology Diagnoses Arthritis Inflammatory (HCC) Pain Foot Right Pain Low Back Chronic Pain Neck Procedures MR Musculoskeletal Pelvis without and with IV Contrast Sivan Garcia M.D., Azael, C.M., M.P.H. [address] [place] [phone] [facility] Referral ID Status Reason Start Date Expiration Date Visits Re quested Visits Authorized [id number] Closed 07/25/2022 07/25/2023 1 1 Encounter Details Date Type Department Care Team (Latest Contact Info) Description 08/30/2022 12:17 PM CDT - 08/30/2022 11:59 PM CDT Hospital Encounter Department of Radiology, [facility], in [place], [place] [address] [place] [phone] Sivan Garcia M.D., Lianna., CSherly., M.P.H. [address] [place] [phone] Arthritis Inflammatory (HCC); Pain Foot Right; Pain [...] week 06/26/2022 How often do you attend [facility] or mormon services? More than 4 times per year 06/26/2022 Do you belong to any clubs o r organizations such as holiness groups, unions, fraternal or athletic groups, or [...] all 06/26/2022 [facility] Occupat ional [facility] - Occupational Stress Questionnaire Answer Date Recorded [...] place to sleep or slept in a penitentiary (including now)? No 06/26/2022 Nutrition Answer Date [...] Sex Assigned at Male 04/09/2018 9:30 PM DEPUTY EDITOR IN CHIEF Gender Identity Male 04/09/2018 9:30 PM DEPUTY EDITOR IN CHIEF Sexual Orientation Straight 04/09/2018 9: 30 PM DEPUTY EDITOR IN CHIEF documented as of this encounter Medications at [...] (four) times a day as needed. via hold worker tube; may also use every 4 hrs [...] Procedure Name Priority Date/Time Associated Diagnosis Comments MR MUSCULOSKELETAL PELVIS WITHOUT AND WITH IV CONTRAST RAD - Routine (most inpatients and all outpatients) 08/30/2022 1:41 PM CDT Arthritis Inflammatory (HCC) Pain Foot Right Pain Low Back Chronic Pain Neck documented in this encounter Results * MR Musculoskeletal Pelvis without and with IV Contrast (08/30/2022 1:41 PM CDT) Anatomical Region Laterality Modality Musculoskeletal, Musculoskel etal RST LOS, Musculoskeletal ARZ LOS, Muskuloskeletal FLA LOS N/A Magne tic Resonance 08/30/2022 1:11 PM CDT Impressions 08/30/2022 1:57 PM CDT 1. No evidence of inflammatory sacroiliitis. 2. Degenerative arthritis both sacroiliac joints and visualized lumbar spine. 3. Age-appropriate left greater than right proximal hamstrings and distal gluteal tendinopathy without evidence of inflammatory enthesitis. Narrative 08/30/2022 1:57 PM CDT EXAM: ??MR MUSCULOSKELETAL PELVIS WITHOUT AND WITH IV CONTRAST COMPARISON: ??Bilateral hip and pelvis radiographs 07/25/2022. FINDINGS: ??Hypertrophic degenerative arthritis both sacroiliac joints with small bridging anterior osteophytes and degenerative cystic changes. No evidence of active inflammatory sacroiliitis. No periarticular edema, enhancement, or erosions. No evidence of inflammatory enthesitis. There are also prominent degenerative and postoperative changes of the visualized spine. 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 Trace bilateral hip joint effusions. Tendinopathy of the proximal hamstrings, more pronounced on the left where there is associated partial tearing. Small dystrophic calcification in the conjoined tendon of the right proximal hamstrings. Mild bilateral distal gluteal tendinopathy. Trace fluid in the left greater than right greater trochanteric bursae. Susceptibility artifact in the lower lumbar spine related to prior decompression and instrumented fusion. Prostatomegaly. Sigmoid diverticulosis. Procedure Note Cirilo Bowles M.D. - 08/30/2022 EXAM: MR MUSCULOSKELETAL PELVIS WITHOUT AND WITH IV CONTRAST COMPARISON: Bilateral hip and pelvis radiographs 07/25/2022. FINDINGS: Hypertrophic degenerative arthritis both sacroiliac joints withsmall bridging anterior osteophytes and degenerative cystic changes. No evidence of activeinflammatory sacroiliitis. No periarticular edema, enhancement, or erosions. No evidence of inflammatoryenthesitis. There are also prominent degenerative and postoperative changes of the visualizedspine. 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 Trace bilateral hipjoint effusions. Tendinopathy of the proximal hamstrings, more pronounced on the left wherethere is associated partial tearing. Small dystrophic calcification in the conjoined tendon ofthe right proximal hamstrings. Mild bilateral distal gluteal tendinopathy. Trace fluid in theleft greater than right greater trochanteric bursae. Susceptibility artifact in the lower lumbarspine related to prior decompression and instrumented fusion. Prostatomegaly. Sigmoid diverticulosis. IMPRESSION: 1. No evidence of inflammatory sacroiliitis. 2. Degenerative arthritis both sacroiliac joints and visualized lumbarspine. 3. Age-appropriate left greater than right proximal hamstrings and distalgluteal tendinopathy without evidence of inflammatory enthesitis. Sivan Garcia M.D., M.D., C.M., M.P.H. IMG MRI PROCEDURES documented in this encounter Visit Diagnoses Diagnosis Arthritis Inflammatory (HCC) Pain Foot Right Pain Low Back Chronic Pain Neck documented in this encounter Administered Medications Inactive Administered Medications - up to 3 most recent administrations Medication Order MAR Action Action Date Dose Rate Site gadobutrol injection 0.01-30 mL (GADAVIST) 0.01-30 mL, intravenous, Once in imaging, contrast, Starting on Tue 23 at 1253, For 1 dose, Imaging Protocol Orders, Dose per Radiant Medication Guidelines Intrathecal doses greater than 0.25 mL not recommended. Given 08/30/2022 1:29 PM CDT 10 mL documented in this encounter Care Teams Material Handler 1St Shift Relationship Specialty Start Date End Date Elsewhere, Pcp PCP - General Family Medicine 03/09/17 documented as of this encounter
--- OUTSIDE RECORDS SUMMARY | 2023-04-13 15:43 | XMS_ITS | Encounter Summary ---
Author Name Unknown Organization [facility] Address [address] [place] [id number] Care Team Providers Care Shredder Picker Name Role Phone Elsewhere, Pcp Primary Care Provider Unavailabl e Reason for Visit * Outpatient (Routine) - Closed Specialty Diagnoses / Procedures Referred By Contac t Referred To Contact Rheumatology Diagnoses Arthritis Inflammatory (HCC) Pain Foot Right Pain Low Back Chronic Pain Neck Sivan Garcia M.D., Lianna., CMarvelM., M.P.H. 200 [place] [address] [facility] Referral ID Status Reason Start Date Expiration Date Visits Re quested Visits Authorized [id number] Closed 07/25/2022 07/24/2025 1 1 Encounter Details Date Type Department Care Team (Latest Contact Info) Description 09/26/2022 9:00 AM CDT Office Visit Division of Rheumatology in [place], [place] [address] [place] [phone] Sivan Garcia M.D., Lianna., C.M., M.P.H. [address] [place] [phone] Arthritis Inflammatory (HCC) (Primary Dx); Pain Foot Right; Pain Low Back Chronic; Pain Neck Social History Tobacco Use Types Packs/Day Years [...] week 06/26/2022 How often do you attend [facility] or [facility] services? More than 4 times per year 06/26/2022 Do you belong to any clubs o r organizations such as buddhist groups, unions, fraternal or athletic groups, or [...] and heating? Not hard at all 06/26/2022 [facility] Occupat ional Health - Occupational Stress [...] place to sleep or slept in a [facility] (including now)? No 06/26/2022 Nutrition Answer Date [...] Sex Assigned at Male 04/09/2018 9:30 PM TUCK POINTER Gender Identity Male 04/09/2018 9:30 PM TUCK POINTER Sexual Orientation Straight 04/09/2018 9: 30 PM TUCK POINTER documented as of this encounter Progress Notes * Sivan Garcia M.D., Azael, C.M., M.P.H. - 09/26/2022 9:00 AM CDT SUBJECTIVE CHIEF COMPLAINT/REASON FOR VISIT Review of investigations. ASSESSMENT / PLAN Mr. Ernst returns for review to discuss the results of his investigations. Since I last saw him, symptoms are overall unchanged. He continues to have pain in the right foot and low back. I do note he was reviewed by a foot surgeon locally and fusion was recommended, but details are not clear. He also has continued soreness and tenderness in his muscles. I have reviewed the investigations completed from July as well as subsequent investigations completed. In reviewing his labs, his hemoglobin was somewhat elevated at 17.9, with an elevated hematocrit of 52.2. MCV was within normal limits. White count was 9.7, with predominant mild neutrophilia. Differential was otherwise unremarkable. Platelets were 295. Sedimentation rate was 2. CRP was borderline increased at 5.1 mg/L, less than 5 mg/L being the reference range. Electrolytes were unremarkable.Creatinine was 1.62, and elevated. Urine microscopy showed no proteinuria or active sediment in July. Calcium was within normal limits. Magnesium and phosphorus levels were checked and also unremarkabl e. Liver enzymes were not elevated. CK and aldolase were not elevated. His 25-hydroxyvitamin D level was 38 ng/mL. B12 level was within normal limits at 462 ng/mL. Methylmalonic acid level was not elevated. TSH was normal. His double-stranded DNA was negative. Double-stranded DNA by Crithidia was also negative. Previous serology in March 2022 was otherwise unrevealing. Protein electrophoresis was unremarkable. His seronegative RAdx3 profile was negative. HLA-B27 was checked and negative. Hepatitis B and C serology were negative. Fluid aspirated from his right knee showed serous fluid with 116 total nucleated cells, 56% lymphocytes. No crystals were seen. Lyme testing on synovial fluid was negative. I reviewed his imaging studies. X-rays of his hands mention possible erosion along the distal aspect of the 4th middle phalanx along with degenerative arthritis. There was evidence of chondrocalcinosis bilaterally at the TFCC. There was a well-corticated osseous fragment adjacent to the distal aspect of the left 3rd middle phalanx. X-rays of his left foot show a lucent lesion in the left talar dome medially, which may be an osteochondral lesion. There is moderate degenerative arthritis about both feet and ankles. He had bilateral calcaneal spurs and pes planus. X-rays of his hips and pelvis showed no convincing evidence of sacroiliitis. There was mild degenerative changes at the hips and a posterior micki and screw fixation at L3 through L5 with intervertebral spacers. X-rays of his entire spine showed multilevel hypertrophic spondylotic changes throughout the spine and degenerative disk disease and facet arthritis. There was a mild thoracolumbar curve. There was apartially visualized elevation of the left hemidiaphragm. MRI of his SI joints was completed. There was no evidence of an inflammatory sacroiliitis. There was degenerative arthritis at the SI joints and visualized lumbar spine. There was age-appropriate, left greater than right, proximal hamstring and distal gluteal tendinopathy without evidence of an inflammatory enthesitis. 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 Ultrasound of his right hand and wrist showed mild hyperemic hypervascular synovitis about the wrist and moderate grayscale and mild to moderate hypervascular synovitis at the 2nd MCP. There was small dystrophic calcifications seen at his 1st and 2nd MCP suggestive of CPPD. There was no other evidence of hypervascular tenosynovitis or synovitis. Pains were felt to be consistent with degenerative arthritis and crystalline arthropathy. A superimposed inflammatory arthritis could not be excluded. I reviewed his pulmonary function tests completed in June 2022, which showed no acute change compared to 2019. Lung volumes, spirometry, diffusing capacity unadjusted for hemoglobin, and maximal respiratory pressures were all normal. I note he also obtained a CT scan of his sternoclavicular joints, which showed right sternoclavicular joint osteoarthritis. There was also noted moderate left sternoclavicular joint osteoarthritis. There was mention of tiny osseous debris present above the sternoclavicular joints. 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 Ernst has been having arthralgias and myalgias without clear inflammatory component to his symptoms. While he has been off medications for a number of years, he has been on low-dose prednisone for management of his symptoms, and he has not been able to taper off. We discussed that it would bein his long-term best interest to gradually wean off the steroids, as that can be associated with other side effects. I will follow up with basic labs. For pain management strategies, certain medications have been suggested including gabapentin, Lyrica, and Cymbalta. He has had side effects with Lyrica and gabapentin in the past, per his report. Cymbalta did not seem to help. Part of the issues he has is that if he takes Cymbalta, he may not be able to fly his plane, but details are not clear. Again, despite being off disease-modifying agents with the exception of being maintained on low-dose prednisone, I have not found any clear evidence of an underlying autoimmune rheumatologic condition, particularly psoriatic arthritis, to account for his clinical constellation of symptoms. He does have evidence of chondrocalcinosis. CPPD arthropathy may account for some of his joint pains, but not likely all of them, and which may account for the improvement on steroids. There has beenno clear definitive metabolic arthropathy identified to account for the chondrocalcinosis. Risks versus benefits of chronic low-dose prednisone would need to be carefully considered. It doesgive him benefit and he has not been able to tolerate multiple other medications. If he remains on Medrol for symptom control, I would encourage him to obtain a bone density at home for his local primary care provider. I would also recommend that he maintain adequate calcium, either through diet orsupplements and vitamin D. We discussed calcium citrate is less constipating. I would aim for at least 3038-5414 mg of calcium daily. Vitamin D3 should be about 1000 international units daily. I would recommend that he take his Medrol in the morning with food since it is more physiologic. I do notethat he is also on meloxicam with the Medrol. He has been instructed to take it with food. Lastly, he may wish to speak to his primary care provider regarding a trial of some Cymbalta, although it may have effects on his flying. I offered him a review with our [facility], but he states he has resources at home. We also discussed referral to the [facility] for further suggestions. He declined at this time. I will follow up on a few basic labs. At present time, no ongoing followup in Rheumatology is indicated here, as we have not been able to identify a clear autoimmune rheumatologic condition to account for his symptoms. Mr. Ernst appeared to have a reasonable understanding of what we discussed. ADDENDUM: Followup CBC showed a hemoglobin of 16.5, normal MCV. White count was 9.3, with a relatively unremarkable differential; basophils were slightly increased at 0.09. Platelets were 309. Creatinine was still at 1.62. CRP has increased marginally to 6.2 mg/L. Iron studies showed a total iron binding capacity that was slightly increased, but iron and percent saturation were within normal limits. Overall, no clear metabolic abnormalities to account for his joint pains, which may be in part related to CPPD arthropathy. There was no definitive evidence for tophi. We will forward suggestions to his local provider. At the present time, there is no indication for followup here in Rheumatology with Mr. Ernst. Sivan Garcia M.D., C.M., M.P.H. CT CT Job ID: [id number] documented in this encounter Plan of Treatment Not on file documented as of this encounter Results * (ABNORMAL) Iron and Total Iron-Binding Capacity (09/26/2022 10:07 AM CDT) Iron 100 50 - 150 mcg/dL 09/26/2022 12:13 PM CDT DTL Total Iron Binding Capacity 426(H) 250 - 400 mcg/dL 09/26/2022 12:13 PM CDT DTL Percent Saturation 23 14 - 50 % 09/26/2022 12:13 PM CDT DTL Blood (Blood, Venous) 09/26/2022 10:07 AM CDT 09/26/2022 11:29 AM CDT Sivan Garcia M.D., M.D., CSherly., M.P.H. LAB BLOOD ADD-ON [facility] [place] [address] [place] [address], [facility] 200 [place] [address] * (ABNORMAL) CRP (C-Reactive Protein) (09/26/2022 10:07 AM CDT) C-Reactive Protein (CRP), S 6.2(H) <5.0 mg/L 09/26/2022 12:13 PM CDT DT Blood (Blood, Venous) 09/26/2022 10:07 AM CDT 09/26/2022 11:29 AM CDT Sivan Garcia M.D., M.D., CMarvelM., M.P.H. LAB BLOOD ADD-ON [facility] [place] [address] [place] [address], [facility] 200 [place] [address] * (ABNORMAL) BUN (Blood Urea Nitrogen) (09/26/2022 10:07 AM CDT) BUN (Blood Urea Nitrogen), S 35(H) 8 - 24 mg/dL 09/26/2022 12:56 PM CDT DTL Blood (Blood, Venous) 09/26/2022 10:07 AM CDT 09/26/2022 11:29 AM CDT Sivan Garcia M.D., M.D., C.M., M.P.H. LAB BLOOD ADD-ON Performing Organization Address [facility] Co de Phone Number [facility] [place] 200 [place] [address], [facility] [address] [place] [address] * (ABNORMAL) Creatinine with Estimated GFR (09/26/2022 [...] M.P.H. LAB BLOOD ADD-ON Performing Organization Address [facility] Co de Phone Number [facility] [place] 200 [place] [address], [facility] 200 [place] [address] * (ABNORMAL) CBC with Differential, Blood (09/26/2022 [...] 09/26/2022 10:28 AM CDT Sivan Garcia M.D., M.D., C.M., M.P.H. LAB BLOOD ADD-ON [facility] - [address] [address], [facility] [address] documented in this encounter Visit Diagnoses Diagnosis Arthritis Inflammatory (HCC)- Primary Pain Foot Right Pain Low Back Chronic Pain Neck documented in this encounter Care Teams Shredder Picker Relationship Specialty Start Date End Date Elsewhere, Pcp PCP - General Family Medicine 03/09/17 documented as of this encounter
--- OUTSIDE RECORDS SUMMARY | 2023-04-13 15:43 | XMS_ITS | Encounter Summary ---
Author Name Unknown Organization [facility] Address [address] [place] [address] Care Team Providers Care Rn Correctional Name Role Phone Elsewhere, Pcp Primary Care Provider Unavailabl e Reason for Visit * Reason Onset Date Comments Pre-visit Intake 09/22/2022 Encounter Details Date Type Department Care Team (Latest Contact Info) Description 09/22/2022 11:45 AM CDT Clinical Communication Virtual Review in [place], [place] [address] [place], [place] [phone] Pre-visit Intake Social History Tobacco Use Types Packs/Day Years [...] often do you attend chur ch or shinto services? More than 4 times per year 06/26/2022 Do you belong to any clubs o r organizations such as congregation groups, unions, fraternal or athletic groups, or [...] and heating? Not hard at all 06/26/2022 [facility] of Occupat ional Health - Occupational Stress [...] place to sleep or slept in a nursing home (including now)? No 06/26/2022 Nutrition Answer Date [...] Sex Assigned at Male 04/09/2018 9:30 PM LICENSED OCCUPATIONAL THERAPY ASSISTANT Gender Identity Male 04/09/2018 9:30 PM LICENSED OCCUPATIONAL THERAPY ASSISTANT Sexual Orientation Straight 04/09/2018 9: 30 PM LICENSED OCCUPATIONAL THERAPY ASSISTANT documented as of this encounter Plan of Treatment Not on file documented as of this encounter Visit Diagnoses Not on filedocumented in this encounter Care Teams Rn Correctional Relationship Specialty Start Date End Date Elsewhere, Pcp PCP - General Family Medicine 03/09/17 documented as of this encounter
--- OUTSIDE RECORDS SUMMARY | 2023-04-13 15:44 | XMS_ITS | Encounter Summary ---
Author Name Unknown Organization [facility] Address [address] [place] [address] Care Team Providers Care Insurance Professional Name Role Phone Elsewhere, Pcp Primary Care Provider Unavailabl e Reason for Referral * MRI/CAT/PET Scan (Routine) - Closed Specialty Diagnoses / Procedures Referred By Contac t Referred To Contact Radiology Diagnoses Arthritis Inflammatory (HCC) Pain Foot Right Pain Low Back Chronic Pain Neck Procedures MR Foot Right without and with IV Contrast Sivan Garcia M.D., Lianna., C.M., M.P.H. 200 [place] [phone] [facility] Referral ID Status Reason Start Date Expiration Date Visits Re quested Visits Authorized [id number] Closed 07/25/2022 07/25/2023 1 1 Reason for Visit * MRI/CAT/PET Scan (Routine) - Closed Specialty Diagnoses / Procedures Referred By Contac t Referred To Contact Radiology Diagnoses Arthritis Inflammatory (HCC) Pain Foot Right Pain Low Back Chronic Pain Neck Procedures MR Foot Right without and with IV Contrast Sivan Garcia M.D., Azael, C.M., M.P.H. 200 [place] [phone] [facility] Referral ID Status Reason Start Date Expiration Date Visits Re quested Visits Authorized [id number] Closed 07/25/2022 07/25/2023 1 1 Encounter Details Date Type Department Care Team (Latest Contact Info) Description 07/26/2022 2:45 PM CDT - 07/26/2022 11:59 PM CDT Hospital Encounter Department of Radiology, [facility], in [place], [place] [address] [place] [address] Sivan Garcia M.D., Lianna., CSherly., M.P.H. [address] [place] [address] Arthritis Inflammatory (HCC); Pain Foot Right; Pain [...] week 06/26/2022 How often do you attend [facility] or muslim services? More than 4 times per year 06/26/2022 Do you belong to any clubs o r organizations such as buddhism groups, unions, fraternal or athletic groups, or [...] and heating? Not hard at all 06/26/2022 [facility] of Occupat ional [facility] - Occupational Stress Questionnaire Answer Date Recorded [...] place to sleep or slept in a correction (including now)? No 06/26/2022 Nutrition Answer Date [...] Sex Assigned at Male 04/09/2018 9:30 PM WAISTBAND SETTER Gender Identity Male 04/09/2018 9:30 PM WAISTBAND SETTER Sexual Orientation Straight 04/09/2018 9: 30 PM WAISTBAND SETTER documented as of this encounter Medications at [...] (four) times a day as needed. via research program assistant tube; may also use every 4 hrs [...] Name Priority Date/Time Associated Diagnosis Comments MR FOOT RIGHT WITHOUT AND WITH IV CONTRAST RAD - Routine (most inpatients and all outpatients) 07/26/2022 5:19 PM CDT Arthritis Inflammatory (HCC) Pain Foot Right Pain Low Back Chronic Pain Neck documented in this encounter Results * MR Foot Right without and with IV Contrast (07/26/2022 5:19 PM CDT) Anatomical Region Laterality Modality Lower Extremity, Foot, Muscu loskeletal RST LOS, Musculoskeletal ARZ LOS, Muskuloskeletal FLA LOS Right Magne tic Resonance 07/27/2022 8:41 AM CDT Impressions 07/27/2022 8:50 AM CDT 1. 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 2. No specific findings for an inflammatory arthritis. Narrative 07/27/2022 8:50 AM CDT EXAM: ??MR FOOT RIGHT WITHOUT AND WITH IV CONTRAST COMPARISON: ??DX foot ankle bilateral 3+ views 07/25/2022. FINDINGS: ??As noted on the radiographs, there is advanced osteoarthritis throughout the midfoot, most severely affecting the 2nd through 5th TMT and naviculocuneiform joints. There is full-thickness cartilage loss with subchondral edema-like signal and cystic changes and even mild joint subluxations. Large subtalar joint effusion with otherwise intact articular surfaces. Mild scattered degenerative changes elsewhere throughout the foot and ankle. Mild thickening of the anterior talofibular ligament consistent with scarring. The ligaments and tendons are otherwise intact. No definite osseous erosive change or specific findings for an inflammatory arthritis. Procedure Note Levi Leong M.D. - 07/27/2022 EXAM: MR FOOT RIGHT WITHOUT AND WITH IV CONTRAST COMPARISON: DX foot ankle bilateral 3+ views 07/25/2022. FINDINGS: As noted on the radiographs, there is advanced osteoarthritisthroughout the midfoot, most severely affecting the 2nd through 5th TMT and naviculocuneiformjoints. There is full-thickness cartilage loss with subchondral edema-like signal andcystic changes and even mild joint subluxations. Large subtalar joint effusion with otherwise intactarticular surfaces. Mild scattered degenerative changes elsewhere throughout the foot andankle. Mild thickening of the anterior talofibular ligament consistent with scarring. The ligaments andtendons are otherwise intact. No definite osseous erosive change or specific findings for aninflammatory arthritis. IMPRESSION: 1. 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 2. No specific findings for an inflammatory arthritis. Sivan Garcia M.D., Lianna., C.M., M.P.H. IMG MRI PROCEDURES documented in this encounter Visit Diagnoses Diagnosis Arthritis Inflammatory (HCC) Pain Foot Right Pain Low Back Chronic Pain Neck documented in this encounter Administered Medications Inactive Administered Medications - up to 3 most recent administrations Medication Order MAR Action Action Date Dose Rate Site gadobutrol injection 0.01-30 mL (GADAVIST) 0.01-30 mL, intravenous, Once in imaging, contrast, Starting on Tu07/26/22 at 1535, For 1 dose, Imaging Protocol Orders, Dose per Radiant Medication Guidelines Intrathecal doses greater than 0.25 mL not recommended. Given 07/26/2022 4:48 PM CDT 10 mL documented in this encounter Care Teams Insurance Professional Relationship Specialty Start Date End Date Elsewhere, Pcp PCP - General Family Medicine 03/09/17 documented as of this encounter
--- OUTSIDE RECORDS SUMMARY | 2023-04-13 15:44 | XMS_ITS | Encounter Summary ---
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 to direct therapy to the target. Image(s) acquired and saved. Site was marked using indelible marker Probe: linear mid-frequency Needle approach: lateral to medial Ultrasound visualization: in-plane SPECIMENS Aspirate volume (mL): 30, appearance: straw color and cloudy Aspirate sent for: cell count and crystal analysis CONSENT Consent obtained: written (Risks, benefits and alternatives were discussed and a written Informed Consent was obtained. Please see Informed Consent form for further details.) UNIVERSAL PROTOCOL All relevant documentation and testing were reviewed and available. All required blood products, implants, devices and or special equipment were made available as applicable. Pre-procedure verification was conducted and the correct site was marked if required. A fire risk assessment was done as applicable. The procedural time-out to verify correct patient, correct side/site, and procedure was conducted prior to performing the procedure and confirmed in a procedural pause. PRE-PROCEDURE DETAILS Procedure purpose: diagnostic Indications: R knee effusion Appropriate hand hygiene, gown, cap, mask, protective eyewear, sterile gloves, skin preparation, sterile drape, and strict aseptic technique were utilized as applicable for the procedure. Site preparation: chlorhexidine SEDATION / ANESTHESIA Anesthesia method: local infiltration and topical application Topical application type: aerosol cold spray Local infiltrate type: lidocaine 1% plain POST-PROCEDURE DETAILS Procedure completed successfully: yes Complications: no apparent complications ?? Post-procedure instructions: avoid strenuous activity for 2 days, avoid submersion of procedure site for 48 hours and post-procedure activity instructions provided Discharge instructions: ice area as needed for comfort, pain management instructions, dressing care and follow-up with ordering provider Comments Fluid also sent for Lyme PCR as requested. Sivan Garcia M.D., M.D., C.M., M.P.H. 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 Narrowing of the C5, C6, L1, L2, and L5 interspaces. Posterior decompression with micki and pedicle screw fixation from L3-L5 with interbody spacers. Grade 1 anterolisthesis of C2 through C4. Mild thoracolumbar curve. Mild degenerative arthritis of the SI joints. Demineralization. Partially visualized elevation of the left hemidiaphragm. Narrative 07/26/2022 2:47 PM CDT EXAM: ??DX ENTIRE SPINE ANTERIOR POSTERIOR AND LATERAL 2 VIEWS Procedure Note Priscilla Jones M.D. - 07/26/2022 EXAM: DX ENTIRE SPINE ANTERIOR POSTERIOR AND LATERAL 2 VIEWS IMPRESSION: Multilevel hypertrophic spondylotic changes throughout the spine withdegenerative disc disease and facet arthritis. Narrowing of the C5, C6, L1, L2, and [id number]. Posterior decompression with micki and pedicle screw fixation from L3-L5 withinterbody spacers. Grade 1 anterolisthesis of C2 through C4. Mild thoracolumbar curve. Milddegenerative arthritis of the SI joints. Demineralization. Partially visualized elevation of the lefthemidiaphragm. Sivan Garcia M.D., Azael, C.M., M.P.H. IMG DIAGNOSTIC IMAGING PROCEDURES * Urinalysis with Microscopic: Urine, Midstream (07/25/2022 5:57 PM CDT) Source Urine, Urine, Midstream 07/25/2022 6:07 PM CDT DTL Color, U Yellow 07/25/2022 6:07 PM CDT DTL Clarity, U Clear 07/25/2022 6:07 PM CDT DTL Protein, U 7 <26 mg/dL 07/25/2022 6:47 PM CDT DTL Protein/Osmol ality 0.09 <0.42 ratio 07/25/2022 6:47 PM CDT DTL Predicted 24 HR Protein, U 95 <229 mg/24 h 07/25/2022 6:47 PM CDT DTL Predicted Range 30-298 mg/24 h 07/25/2022 6:47 PM CDT DTL Urine (Urine, Midstream) 07/25/2022 5:57 PM CDT 07/25/2022 6:07 PM CDT Sivan Garcia M.D., M.D., Brenda., M.P.H. LAB URINE ORDERABLES Performing Organization Address [facility] Co de Phone Number [facility] [address] [place] [address] * HLA B27 Associated Antigen Screening (07/25/2022 5:54 PM CDT) [facility] HLA-B27 Result Negative Not Applicable 07/26/2022 3:22 PM CDT [facility] HLA-B27 Interpretation see below 07/26/2022 3:22 PM CDT [facility] Comment: HLA-B27 antigen was not detected. ----ADDITIONAL INFORMATION---- Method: Flow Cytometry CLIA: [id number] ??CLIA Technical Support Associate: TRICIA LEONE MD,PhD Blood (Blood, Venous) 07/25/2022 5:54 PM CDT 07/26/2022 7:49 AM CDT Sivan Garcia M.D., M.D., CSherly., M.P.H. LAB BLOOD NON ADD-ON Performing Organization Address [facility] Co de Phone Number [facility] [address] [place] [address] * SeroNeg RAdx3 Profile-Sent Out Lab (07/25/2022 5:54 PM CDT) [facility] 14.3.3 ETA, Rheum. Arthritis <0.20 <0.20 ng/mL 08/02/2022 11:06 PM CDT [facility] Comment: This test was developed and its performance characteristics determined by [facility]. It has not been cleared or approved by the Food and Drug Administration. ?Negative: ? <0.20 ng/mL ?Weak Positive: ?0.20 - 0.39 ng/mL ?Moderate Positive: ?0.40 - 0.79 ng/mL ?Strong Positive: ?>0.79 ng/mL Anti-CEP-1 Ab, IgG <20 <20 Units 2022 11:06 PM CDT [facility] Comment: This test was developed and its performance characteristics determined by [facility]. It has not been cleared or approved by the Food and Drug Administration. ? Negative: ? <20 ? Weak Positive: ?20 - 39 ? Moderate Positive: ?40 - 80 ? Strong Positive: ?>80 Anti-Sa Ab, IgG <20 <20 Units 11:06 PM CDT [facility] Comment: This test was developed and its performance characteristics determined by [facility]. It has not been cleared or approved by the Food and Drug Administration. ? Negative: ? <20 ? Weak Positive: ?20 - 39 ? Moderate Positive: ?40 - 80 ? Strong Positive: ?>80 - 14-3-3 eta protein is a joint-derived ??pro-inflammatory meat lugger that is implicated in the ??joint erosion process and pathogenesis of RA. Serum ??14-3-3 eta protein is elevated in both established ??RA (sensitivity 77%) and early RA (sensitivity ??59-64%).[1,2] - Serum 14-3-3 eta may be especially helpful in ??identifying patients with early RA where it provides ??a 15-20% incremental benefit to the diagnostic ??sensitivity of RF and Anti-CCP.[1,3] - Anti-CEP1 (Citrullinated alpha-enolase peptide 1) ??antibodies may identify a subset of patients with a ??higher frequency of joint erosions.[4] - Anti-Sa (Citrullinated Vimentin) positive patients ??with early RA may have more severe disease.[5] Footnotes: 1. Sravani HARRISON et al.J Rheumatol 2015;42(9): ?? 3406-8235. 2. Sravani HARRISON et al. J Rheumatol 2014;41(11):1-10. 3. Amber N, et al. Arthritis Res Ther 2016;18:37. 4. Angeles A et al. Arthritis Rheum 2011;63(3):654-661. 5. El-Rizwana HS et al. Arthritis Res Ther 2004;86(6) Blood (Blood, Venous) 07/25/2022 5:54 PM CDT 07/26/2022 8:12 AM CDT Sivan Garcia M.D., M.D., C.M., M.P.H. LAB BLOOD NON ADD-ON [facility] [address] [place] [address], [facility] ENDI [facility] [address] [place] [address] * 25-Hydroxyvitamin D2 and D3 (07/25/2022 5:54 PM CDT) Pathologist [facility] 25-Hydroxy D2 <4.0 ng/mL 07/26/2022 11:35 PM CDT [facility] 25-Hydroxy D3 38 ng/mL 07/26/2022 11:35 PM CDT [facility] 25-Hydroxy D Total 38 ng/mL 2022 11:35 PM CDT [facility] Comment: ----REFERENCE VALUE---- 25-HYDROXY D TOTAL (D2+D3) Optimum levels in the healthy population are 20-50, patients with bone disease may benefit from higher levels within this range. ----ADDITIONAL INFORMATION---- This test was developed and its performance characteristics determined by [facility] in a manner consistent with CLIA requirements. This test has not been cleared or approved by the U.S. Food and Drug Administration. Blood (Blood, Venous) 07/25/2022 5:54 PM CDT 07/26/2022 7:04 AM CDT Sivan Garcia M.D., Azael, C.M., M.P.H. LAB BLOOD ADD-ON Performing Organization Address [facility] Co de Phone Number [facility] [address] [place] [address] [facility] [address] [place] [address] [place] [address] * Methylmalonic Acid (MMA), Quantitative (07/25/2022 5:54 PM CDT) [facility] Signature Methylmalonic Acid, QN, S 0.24 <=0.40 nmol/mL 07/27/2022 8:56 AM CDT DTL Comment: ----ADDITIONAL INFORMATION---- This test was developed and its performance characteristics determined by [facility] in a manner consistent with CLIA requirements. This test has not been cleared or approved by the U.S. Food and Drug Administration. Blood (Blood, Venous) 07/25/2022 5:54 PM CDT 07/26/2022 10:34 AM CDT Sivan Garcia M.D., M.D., C.M., M.P.H. LAB BLOOD ADD-ON Performing Organization Address [facility] [place] [address], [facility] DTL [address] [address] * Aldolase (07/25/2022 5:54 PM CDT) Pathologist [facility] Aldolase, S 6.8 <7.7 U/L 07/26/2022 8: 50 AM CDT DT Blood (Blood, Venous) 07/25/2022 5:54 PM CDT 07/26/2022 7:13 AM CDT Sivan Garcia M.D., Lainna., C.M., M.P.H. LAB BLOOD NON ADD-ON [facility] [address] [place], [place] [id number] [place] [address] * Sedimentation Rate (07/25/2022 5:53 PM CDT) [facility] Sedimentation Rate, B 2 3 - 28 mm/h 07/25/2022 8:02 PM CDT DT Blood (Blood, Venous) 07/25/2022 5:53 PM CDT 07/25/2022 6:03 PM CDT Sivan Garcia M.D., Lianna., C.M., M.P.H. LAB BLOOD ADD-ON [facility] [address] [place], [place] [id number] [place] [address] * (ABNORMAL) CRP (C-Reactive Protein) (07/25/2022 5:53 PM CDT) [facility] C-Reactive Protein (CRP), S 5.1(H) <5.0 mg/L 07/25/2022 6:35 PM CDT DTL Blood (Blood, Venous) 07/25/2022 5:53 PM CDT 07/25/2022 6:12 PM CDT Sivan Garcia M.D., M.D., CSherly., M.P.H. LAB BLOOD ADD-ON [facility] [address] [place] [address], [facility] DTL [facility] [address] [place] [address] * HBV DNA Detect/Quant, Serum (07/25/2022 5:53 PM CDT) [facility] HBV DNA Detect/Quant, S Undetected Undetected IU/mL 07/26/2022 1:37 PM CDT [facility] Comment: Result in log IU/mL is Undetected. ----ADDITIONAL INFORMATION---- The quantification range of this assay is 10 to 1,000,000,000 IU/mL (1.00 log to 9.00 log IU/mL). Testing was performed using the scotty HBV test ([employer] with the scotty Jasper0 System. Blood (Blood, Venous) 07/25/2022 5:53 PM CDT 07/25/2022 8:16 PM CDT Sivan Garcia M.D., M.D., Brenda., M.P.H. LAB MICROBIOLOGY - BLOOD ORDERABLES Performing Organization Address City/[facility] Co de Phone Number [facility] [address] [place] [address] [facility] [address] [place] [address] [place] [address] * DNA Double-Stranded (dsDNA) Antibodies, IgG (07/25/2022 5:53 PM CDT) [facility] DNA Double-Stranded Ab, IgG, S <12.3 <30.0 (Negative) IU/mL 07/26/2022 1:49 PM CDT [facility] Blood (Blood, Venous) 07/25/2022 5:53 PM CDT 07/25/2022 8:10 PM CDT Sivan Garcia M.D., M.D., CSherly., M.P.H. LAB BLOOD ADD-ON [facility] [address] [place] [address] [facility] [address] [place] [address] * HCV Ab w/Reflex to HCV PCR, Serum (07/25/2022 5:53 PM CDT) HCV Ab, S Negative Negative 07/25/2022 10:29 PM CDT [facility] Comment:Pcefkq-[id number] rat io is <1.00. Blood (Blood, Venous) 07/25/2022 5:53 PM CDT 07/25/2022 7:54 PM CDT Sivan Garcia M.D., M.D., C.Tr., M.P.H. LAB MICROBIOLOGY - BLOOD ORDERABLES Performing Organization Address [facility]/ZIP Co de Phone Number [facility] [address] [place] [address] [facility] [address] [place] [address] * HBc Total Ab, Serum (07/25/2022 5:53 PM CDT) [facility] HBc Total Ab, S Negative Negative 07/25/2022 10:16 PM CDT [facility] Blood (Blood, Venous) 07/25/2022 5:53 PM CDT 07/25/2022 7:54 PM CDT Sivan Garcia M.D., M.D., C.M., M.P.H. LAB MICROBIOLOGY - BLOOD ORDERABLES Performing Organization Address City/[facility]/ZIP Co de Phone Number [facility] [address] [place] [address] [facility] [address] [place] [address] * HBs Antibody, Serum (07/25/2022 5:53 PM CDT) Pathologist [facility] HBs Antibody, S Negative 07/25/2022 10:17 PM CDT [facility] Comment: Patient is presumed to be not immune to infection with HBV. ----REFERENCE VALUE---- Unvaccinated: Negative Vaccinated: Positive HBs Antibody, Quantitative, S <5.0 mIU/mL 07/25/2022 10:17 PM CDT [facility] Comment: ----REFERENCE VALUE---- Unvaccinated: <5.0 Vaccinated: >=12.0 Blood (Blood, Venous) 07/25/2022 5:53 PM CDT 07/25/2022 7:54 PM CDT Sivan Garcia M.D., M.D., C.M., M.P.H. LAB MICROBIOLOGY - BLOOD ORDERABLES Performing Organization Address City/[facility]/ZIP Co de Phone Number [place] [id number] [place], [place] [phone] [place] [address] [place] [address] * Hepatitis B Surface Antigen (07/25/2022 5:53 PM CDT) [facility] HBs Antigen, S Negative Negative 07/25/2022 10:13 PM CDT [facility] Blood (Blood, Venous) 07/25/2022 5:53 PM CDT 07/25/2022 7:54 PM CDT Sivan Garcia M.D., M.D., C.M., M.P.H. LAB MICROBIOLOGY - BLOOD ORDERABLES [facility] [address] [place] [address] [place] [address] * (ABNORMAL) Monoclonal Gammopathy Diagnostic (07/25/2022 5:53 PM CDT) [facility] Therapeutic Antibody Administered? No 07/26/2022 6:16 AM CDT [facility] Total Protein, S 7.0 6.3 - 7.9 g/dL 07/26/2022 7:52 AM CDT [facility] Coker Free Light Chain, S 2.55(H) 0.3300 - 1.94 mg/dL 07/26/2022 9:46 AM CDT [facility] Lambda Free Light Chain, S 1.83 0.5700 - 2.63 mg/dL 07/26/2022 9:46 AM CDT [facility] Coker/Lambda FLC Ratio 1.39 0.2600 - 1.65 07/26/2022 9:46 AM CDT [facility] Albumin 3.5 3.4 - 4.7 g/dL 07/26/2022 1:36 PM CDT [facility] Alpha-1 Globulin 0.3 0.1 - 0.3 g/dL 07/26/2022 1:36 PM CDT [facility] Alpha-2 Globulin 1.0 0.6 - 1.0 g/dL 07/26/2022 1:36 PM CDT [facility] Beta-Globulin 1.1 0.7 - 1.2 g/dL 07/26/2022 1:36 PM CDT [facility] Gamma-Globulin 1.1 0.6 - 1.6 g/dL 07/26/2022 1:36 PM CDT [facility] A/G Ratio 1.00 07/26/2022 1:36 PM CDT [facility] Impression No apparent monoclonal protein on serum electrophore sis. See Isotype. 07/26/2022 1:36 PM CDT [facility] Flag, M-protein Isotype Negative Negative 07/27/2022 8:07 PM CDT [facility] M-protein Isotype MALDI-TOF MS No monoclonal protein detected. 07/27/2022 8:07 PM CDT [facility] Comment: ----ADDITIONAL INFORMATION---- The submitted sample was assayed by five separate immunopurifications for IgG, IgA, IgM, kappa and lambda. ??The result reflects the findings of either no monoclonal protein detected or those monoclonal immunoglobulins that were detected. This test was developed and its performance characteristics determined by [facility] in a manner consistent with CLIA requirements. This test has not been cleared or approved by the U.S. Food and Drug Administration. Blood (Blood, Venous) 07/25/2022 5:53 PM CDT 07/26/2022 6:15 AM CDT Narrative [facility] - 07/27/2022 8:07 PM CDT Specimen Information: Specimen ID: [id number] Specimen Type: Blood Specimen Collection Start Date: 07/25/2022 ??5:53 PM Specimen Received Date: 07/26/2022 ??6:15 AM Specimen ID: [id number] Specimen Type: Blood Specimen Collection Start Date: 07/25/2022 ??5:54 PM Specimen Received Date: 07/26/2022 ??6:16 AM Sivan Garcia M.D., M.D., Darron, M.P.H. LAB BLOOD ADD-ON Performing Organization Address City/[facility]/ZIP Co de Phone Number [facility] [address] [place] [address] [facility] [address] [place], [place] [phone] [place] [address] [address] [place] [address] [place] [address] * Vitamin B12 Assay (07/25/2022 5:53 PM CDT) [facility] Vitamin B12 Assay, S 462 180 - 914 ng/L 07/27/2022 12:11 PM CDT DTL Comment: ----ADDITIONAL INFORMATION---- In patients being evaluated for vitamin B12 deficiency who have intrinsic factor blocking antibodies (IFBA), false elevations of B12 may occur due to IFBA interference thus potentially obscuring a physiological deficiency of B12. If observed B12 concentrations are discordant with clinical presentation, measurement of methylmalonic acid (MMA) should be considered. Blood (Blood, Venous) 07/25/2022 5:53 PM CDT 07/25/2022 6:12 PM CDT Sivan Garcia M.D., M.D., CSherly., M.P.H. LAB BLOOD ADD-ON Performing Organization Address City/[facility]/ZIP Co de Phone Number [facility] [address] [place] [address], [facility] DTL [facility] [address] [place] [address] * Thyroid Function Wynot (07/25/2022 5:53 PM CDT) Pathologist [facility] TSH, Sensitive 1.4 0.3 - 4.2 mIU/L 07/25/2022 6:35 PM CDT DT Blood (Blood, Venous) 07/25/2022 5:53 PM CDT 07/25/2022 6:12 PM CDT Sivan Garcia M.D., M.D., C.M., M.P.H. LAB BLOOD ADD-ON Performing Organization Address City/[facility]/ZIP Co de Phone Number [facility] [address] [place], [place] [address] [place] [address] 200 [place] [address] * Phosphorus Inorganic (07/25/2022 5:53 PM CDT) [facility] Phosphorus (Inorganic), S 3.4 2.5 - 4.5 mg/dL 07/25/2022 6:35 PM CDT DT Blood (Blood, Venous) 07/25/2022 5:53 PM CDT 07/25/2022 6:12 PM CDT Sivan Garcia M.D., Lianna., C.M., M.P.H. LAB BLOOD ADD-ON [facility] [address] [place], [place] [phone] [place] [address] 200 [place] [address] * Magnesium (07/25/2022 5:53 PM CDT) [facility] Magnesium, S 2.0 1.7 - 2.3 mg/dL 07/25/2022 6:35 PM CDT DTL Blood (Blood, Venous) 07/25/2022 5:53 PM CDT 07/25/2022 6:12 PM CDT Sivan Garcia M.D., M.D., Brenda., M.P.H. LAB BLOOD ADD-ON Performing Organization Address City/[facility]/ZIP Co de Phone Number [facility] [address] [place] [address], [facility] [address] [place] [address] * CK (Creatine Kinase) (07/25/2022 5:53 PM CDT) Creatine Kinase (CK), S 205 39 - 308 U/L 07/25/2022 6:35 PM CDT DTL Blood (Blood, Venous) 07/25/2022 5:53 PM CDT 07/25/2022 6:12 PM CDT Sivan Garcia M.D., M.D., CSherly., M.P.H. LAB BLOOD ADD-ON Performing Organization Address City/[facility] Co de Phone Number [facility] [address] [place] [address], [facility] 200 [place] [address] * (ABNORMAL) Comprehensive Metabolic Panel (07/25/2022 5:53 PM CDT) Potassium, S 4.4 3.6 - 5.2 mmol/L 07/25/2022 6:35 PM CDT DTL Sodium, S 141 135 - 145 mmol/L 07/25/2022 6:35 PM CDT DTL Chloride, S 104 98 - 107 mmol/L 07/25/2022 6:35 PM CDT DTL Bicarbonate, S 26 22 - 29 mmol/L 07/25/2022 6:35 PM CDT DTL Anion Gap 11 7 - 15 07/25/2022 6:35 PM CDT DTL BUN (Blood Urea Nitrogen), S 31(H) 8 - 24 mg/dL 07/25/2022 6:35 PM CDT DTL Creatinine 1.62(H) 0.74 - 1.35 mg/dL 07/25/2022 6:35 PM CDT DTL Estimated GFR (eGFR) 45(L) >=60 mL/min/BS A 07/25/2022 6:35 PM CDT [facility]TL Comment: Estimated GFR calculated using the 2020 CKD_EPI creatinine equation. Calcium, Total, S 9.8 8.8 - 10.2 mg/dL 07/25/2022 6:35 PM CDT DTL Glucose, S 100 70 - 140 mg/dL 07/25/2022 6:35 PM CDT DTL Protein, Total, S 6.8 6.3 - 7.9 g/dL 07/25/2022 6:35 PM CDT DTL Albumin, S 4.5 3.5 - 5.0 g/dL 07/25/2022 6:35 PM CDT DTL Aspartate Aminotransferase (AST), S 37 8 - 48 U/L 07/25/2022 6:35 PM CDT DTL Alkaline Phosphatase, S 56 40 - 129 U/L 07/25/2022 6:35 PM CDT DTL Alanine Aminotransferase (ALT), S 26 7 - 55 U/L 07/25/2022 6:35 PM CDT DTL Bilirubin, Total, S 0.9 <=1.2 mg/dL 07/25/2022 6:35 PM CDT DTL Blood (Blood, Venous) 07/25/2022 5:53 PM CDT 07/25/2022 6:12 PM CDT Sivan Garcia M.D., M.D., C.M., M.P.H. LAB BLOOD ADD-ON [facility] [address] [place] [address], [facility] [address] [place] [address] * (ABNORMAL) CBC with Differential, Blood (07/25/2022 5:53 PM CDT) Hemoglobin 17.9(H) 13.2 - 16.6 g/dL 07/25/2022 6:09 PM CDT DTL Hematocrit 52.2(H) 38.3 - 48.6 % 07/25/2022 6:09 PM CDT DTL Erythrocytes 5.41 4.35 - 5.65 x10(12)/L 07/25/2022 6:09 PM CDT DTL MCV 96.5 78.2 - 97.9 fL 07/25/2022 6:09 PM CDT DTL RBC Distrib Width 13.0 11.8 - 14.5 % 07/25/2022 6:09 PM CDT DTL Platelet Count 295 135 - 317 x10(9)/L 07/25/2022 6:09 PM CDT DTL Leukocytes 9.7(H) 3.4 - 9.6 x10(9)/L 07/25/2022 6:09 PM CDT DTL Neutrophils 7.48(H) 1.56 - 6.45 x10(9)/L 07/25/2022 6:09 PM CDT DTL Lymphocytes 1.39 0.95 - 3.07 x10(9)/L 07/25/2022 6:09 PM CDT DTL Monocytes 0.68 0.26 - 0.81 x10(9)/L 07/25/2022 6:09 PM CDT DTL Eosinophils 0.12 0.03 - 0.48 x10(9)/L 07/25/2022 6:09 PM CDT DTL Basophils 0.06 0.01 - 0.08 x10(9)/L 07/25/2022 6:09 PM CDT DTL Blood (Blood, Venous) 07/25/2022 5:53 PM CDT 07/25/2022 6:03 PM CDT Sivan Garcia M.D., M.D., C.M., M.P.H. LAB BLOOD ADD-ON [facility] [address] [place] [address], [facility] [address] [place] [address] * DX Hips and Pelvis Bilateral 5+ Views (07/25/2022 4:46 PM CDT) Anatomical Region Laterality Modality Lower Extremity, Pelvis, Hip , Musculoskeletal RST LOS, Musculoskeletal ARZ LOS, Muskuloskeletal FLA LOS Bilateral Digit al Radiography 07/25/2022 5:15 PM CDT Impressions 07/25/2022 8:01 PM CDT No convincing evidence of sacroiliitis. Mild degenerative changes of the hips. Posterior micki and screw fixation L3-L5 with interbody vertebral spacers. Narrative 07/25/2022 8:01 PM CDT EXAM: ??DX HIPS AND PELVIS BILATERAL 5+ VIEWS Procedure Note Neri Rich M.D., Ph.D. - 07/25/2022 EXAM: DX HIPS AND PELVIS BILATERAL 5+ VIEWS IMPRESSION: No convincing evidence of sacroiliitis. Mild degenerative changes of thehips. Posterior micki and screw fixation L3-L5 with interbody vertebral spacers. Sivan Garcia M.D., Lianna., C.M., M.P.H. IMG DIAGNOSTIC IMAGING PROCEDURES * DX Foot Ankle Bilateral 3+ Views (07/25/2022 4:46 PM CDT) Anatomical Region Laterality Modality Lower Extremity, Foot, Ankle , Musculoskeletal RST LOS, Musculoskeletal ARZ LOS, Muskuloskeletal FLA LOS Bilateral Digit al Radiography 07/25/2022 5:19 PM CDT Impressions 07/25/2022 8:00 PM CDT Lucent lesion in the left talar dome medially may be an osteochondral lesion. Moderate degenerative arthritis about both feet and ankles, most prominent in the IP joints. 3Bilateral calcaneal spurs. Bilateral pes planus. Probable bilateral ankle joint effusions. Vascular calcifications. Narrative 07/25/2022 8:00 PM CDT EXAM: ??DX FOOT ANKLE BILATERAL 3+ VIEWS Procedure Note Neri Rich M.D., Ph.D. - 07/25/2022 EXAM: DX FOOT ANKLE BILATERAL 3+ VIEWS IMPRESSION: Lucent lesion in the left talar dome medially may be an osteochondrallesion. Moderate degenerative arthritis about both feet and ankles, most prominent in theIP joints. 3Bilateral calcaneal spurs. Bilateral pes planus. Probable bilateral ankle jointeffusions. Vascular calcifications. Sivan Garcia M.D., M.D., Darron, M.P.H. IMG DIAGNOSTIC IMAGING PROCEDURES * DX Hand Bilateral 3+ Views and Wrist Bilateral 3+ Views (07/25/2022 4:45 PM CDT) Anatomical Region Laterality Modality Upper Extremity, Hand, Muscu loskeletal RST LOS, Musculoskeletal ARZ LOS, Muskuloskeletal FLA LOS Bilateral Digit al Radiography 07/25/2022 5:00 PM CDT Impressions 07/25/2022 8:04 PM CDT Possible marginal erosion along the distal aspect of the 4th right middle phalanx. Scattered degenerative arthritis of the hands, most advanced in the IP joints. Chondrocalcinosis bilateral TFCC. Well-corticated osseous fragment adjacent to the distal aspect of the left 3rd middle phalanx. Narrative 07/25/2022 8:04 PM CDT EXAM: ??DX HAND BILATERAL 3+ VIEWS AND WRIST BILATERAL 3+ VIEWS Procedure Note Neri Rich M.D., Ph.D. - 07/25/2022 EXAM: DX HAND BILATERAL 3+ VIEWS AND WRIST BILATERAL 3+ VIEWS IMPRESSION: Possible marginal erosion along the distal aspect of the 4th right middlephalanx. Scattered degenerative arthritis of the hands, most advanced in the IPjoints. Chondrocalcinosis bilateral TFCC. Well-corticated osseous fragment adjacent to the distalaspect of the left 3rd middle phalanx. Sivan Garcia M.D., Lianna., CSherly., M.P.H. IMG DIAGNOSTIC IMAGING PROCEDURES documented in this encounter Visit Diagnoses Diagnosis Arthritis Inflammatory (HCC)- Primary Pain Foot Right Pain Low Back Chronic Pain Neck Arthritis Inflammatory (HCC) Pain Foot Right Pain Low Back Chronic Pain Neck Arthritis Inflammatory (HCC) Pain Foot Right Pain Low Back Chronic Pain Neck Arthritis Inflammatory (HCC) Pain Foot Right Pain Low Back Chronic Pain Neck Arthritis Inflammatory (HCC) Pain Foot Right Pain Low Back Chronic Pain Neck Arthritis Inflammatory (HCC) Pain Foot Right Pain Low Back Chronic Pain Neck Arthritis Inflammatory (HCC) Pain Foot Right Pain Low Back Chronic Pain Neck Arthritis Inflammatory (HCC) Pain Foot Right Pain Low Back Chronic Pain Neck documented in this encounter Care Teams Book Cleaner Relationship Specialty Start Date End Date Elsewhere, Pcp PCP - General Family Medicine 03/09/17 documented as of this encounter
--- OUTSIDE RECORDS SUMMARY | 2023-04-13 15:44 | XMS_ITS | Encounter Summary ---
Author Name Unknown Organization [facility] Address [address] [place] [address] Care Team Providers Care Vp Securities Name Role Phone Elsewhere, Pcp Primary Care Provider Unavailabl e Reason for Referral * MRI/CAT/PET Scan (Routine) - Closed Specialty Diagnoses / Procedures Referred By Contac t Referred To Contact Radiology Diagnoses Pain Shoulder Right Procedures CT Sternoclavicular Joint Bilateral without IV Contrast Trupti Aguayo P.A.-C., M.S. 200 [place] [phone] [facility] Referral ID Status Reason Start Date Expiration Date Visits Re quested Visits Authorized [id number] Closed 07/05/2022 07/05/2023 1 1 Reason for Visit * Reason Onset Date Comments Pre-visit Testing Orders 07/05/2022 Encounter Details Date Type Department Care Team (Latest Contact Info) Description 07/05/2022 Clinical Communication Department of Orthopedic Surgery in [place], [place] [address] [place] [phone] José Wright M.D., Ph.D. [address] [place] [phone] Pre-visit Testing Orders Social History Tobacco Use Types Packs/Day Years [...] How often do you attend chur or evangelical services? More than 4 times per year 06/26/2022 Do you belong to any clubs o r organizations such as moravian groups, unions, fraternal or athletic groups, or [...] and heating? Not hard at all 06/26/2022 [facility] Occupat ional Health - Occupational Stress [...] place to sleep or slept in a custodial (including now)? No 06/26/2022 Nutrition Answer Date [...] Sex Assigned at Male 04/09/2018 9:30 PM QUALITY CONTROL TECHNICIAN Gender Identity Male 04/09/2018 9:30 PM QUALITY CONTROL TECHNICIAN Sexual Orientation Straight 04/09/2018 9: 30 PM QUALITY CONTROL TECHNICIAN documented as of this encounter Plan of Treatment Not on file documented as of this encounter Results * CT Sternoclavicular Joint [...] 08/15/2017. Trupti Aguayo P.A.-C., M.S. IMG CT LA OCEDURES documented in this encounter Visit Diagnoses Diagnosis Pain Shoulder Right- Primary Pain Shoulder Right documented in this encounter Care Teams Vp Securities Relationship Specialty Start Date End Date Elsewhere, Pcp PCP - General Family Medicine 03/09/17 documented as of this encounter
--- OUTSIDE RECORDS SUMMARY | 2023-04-13 15:44 | XMS_ITS | Encounter Summary ---
Author Name Unknown Organization [facility] Address [address] [place] [address] Care Team Providers Care Cut Out Press Operator Name Role Phone Elsewhere, Pcp Primary Care Provider Unavailabl e Encounter Details Date Type Department Care Team (Late st Contact Info) Description 07/26/2022 2:15 PM CDT Ancillary Procedure Department of Rheumatology Social History Tobacco Use Types Packs/Day Years [...] often do you attend chur ch or tenriism services? More than 4 times per year 06/26/2022 Do you belong to any clubs o r organizations such as mormon groups, unions, fraternal or athletic groups, or [...] and heating? Not hard at all 06/26/2022 [facility] of Occupat ional Health - Occupational Stress [...] place to sleep or slept in a jail (including now)? No 06/26/2022 Nutrition Answer Date [...] Sex Assigned at Male 04/09/2018 9:30 PM MINIATURE SET DESIGNER Gender Identity Male 04/09/2018 9:30 PM MINIATURE SET DESIGNER Sexual Orientation Straight 04/09/2018 9: 30 PM MINIATURE SET DESIGNER documented as of this encounter Plan of Treatment Not on file documented as of this encounter Procedures Procedure Name Priority Date/Time Associated Diagnosis Comments RHEUMATOLOGY IMAGE EXAM Routine 07/26/2022 2:15 PM CDT documented in this encounter Results * Aspiration Injection-Rheumatology Image Exam (07/26/2022 2:15 PM CDT) 07/26/2022 2:13 PM CDT Narrative IIMS - 07/26/2022 2:36 PM CDT This order has been created and auto-finalized to support the import of images acquired without order. The clinical documentation to support these images can be found on the encounter that produced images. Provider Not In System IMG NON RAD IMAGI NG PROCEDURES [facility] NA documented in this encounter Visit Diagnoses Not on filedocumented in this encounter Care Teams Cut Out Press Operator Relationship Specialty Start Date End Date Elsewhere, Pcp PCP - General Family Medicine 03/09/17 documented as of this encounter
--- OUTSIDE RECORDS SUMMARY | 2023-04-13 15:44 | XMS_ITS | Encounter Summary ---
Author Name Unknown Organization [facility] Address [address] [place] [address] Care Team Providers Care Wire Bender Name Role Phone Elsewhere, Pcp Primary Care Provider Unavailabl e Reason for Referral * Outpatient (Routine) - Closed Specialty Diagnoses / Procedures Referred By Contac t Referred To Contact Diagnoses Arthritis Inflammatory (HCC) Pain Foot Right Pain Low Back Chronic Pain Neck Procedures DX Entire Spine Anterior Posterior and Lateral 2 Views Sivan Garcia M.D., Azael, C.M., M.P.H. 200 [place] [phone] [facility] Referral ID Status Reason Start Date Expiration Date Visits Re quested Visits Authorized [id number] Closed 07/25/2022 07/25/2023 1 1 Reason for Visit * Outpatient (Routine) - Closed Specialty Diagnoses / Procedures Referred By Contac t Referred To Contact Diagnoses Arthritis Inflammatory (HCC) Pain Foot Right Pain Low Back Chronic Pain Neck Procedures DX Entire Spine Anterior Posterior and Lateral 2 Views Sivan Garcia M.D., Lianna., C.M., M.P.H. 200 [place] [phone] [facility] Referral ID Status Reason Start Date Expiration Date Visits Re quested Visits Authorized [id number] Closed 07/25/2022 07/25/2023 1 1 Encounter Details Date Type Department Care Team (Latest Contact Info) Description 07/26/2022 1:29 PM CDT - 07/26/2022 2:44 PM CDT Hospital Encounter Department of Radiology, [facility], in [place], [place] [address] [place] [address] Sivan Garcia M.D., Lianna., C.M., M.P.H. [address] [place] [address] Arthritis Inflammatory (HCC); Pain Foot Right; Pain [...] How often do you attend chur or scientology services? More than 4 times per year 06/26/2022 Do you belong to any clubs o r organizations such as taoist groups, unions, fraternal or athletic groups, or [...] and heating? Not hard at all 06/26/2022 [facility] of Occupat ional Health - Occupational Stress [...] place to sleep or slept in a alf (including now)? No 06/26/2022 Nutrition Answer Date [...] Sex Assigned at Male 04/09/2018 9:30 PM GASKET MAKER Gender Identity Male 04/09/2018 9:30 PM GASKET MAKER Sexual Orientation Straight 04/09/2018 9: 30 PM GASKET MAKER documented as of this encounter Medications at [...] (four) times a day as needed. via circuit board repair technician tube; may also use every 4 hrs [...] Procedure Name Priority Date/Time Associated Diagnosis Comments DX ENTIRE SPINE ANTERIOR POSTERIOR AND LATERAL 2 VIEWS RAD - Routine (most inpatients and all outpatients) 07/26/2022 1:57 PM CDT Arthritis Inflammatory (HCC) Pain Foot Right Pain Low Back Chronic Pain Neck documented in this encounter Results * DX Entire Spine Anterior Posterior and [...] of the C5, C6, L1, L2, and U1zncupbhdtum. Posterior decompression with micki and pedicle screw fixation from L3-L5 withinterbody spacers. Grade 1 anterolisthesis of C2 through C4. Mild thoracolumbar curve. Milddegenerative arthritis of the SI joints. Demineralization. Partially visualized elevation of the lefthemidiaphragm. Sivan Garcia M.D., Lianna., C.M., M.P.H. IMG DIAGNOSTIC IMAGING PROCEDURES documented in this encounter Visit Diagnoses Diagnosis Arthritis Inflammatory (HCC) Pain Foot Right Pain Low Back Chronic Pain Neck documented in this encounter Care Teams Wire Bender Relationship Specialty Start Date End Date Elsewhere, Pcp PCP - General Family Medicine 03/09/17 documented as of this encounter
--- OUTSIDE RECORDS SUMMARY | 2023-04-13 15:44 | XMS_ITS | Encounter Summary ---
Author Name Unknown Organization [facility] Address [address] [place] [address] Care Team Providers Care District Captain Name Role Phone Elsewhere, Pcp Primary Care Provider Unavailabl e Reason for Visit * Outpatient (Routine) - Closed Specialty Diagnoses / Procedures Referred By Britany t Referred To Contact Pulmonary Medicine David Reynoso M.D. [address] [place] [phone] [facility] Referral ID Status Reason Start Date Expiration Date Visits Re quested Visits Authorized [id number] Closed 06/28/2022 06/27/2025 1 1 Encounter Details Date Type Department Care Team ([facility] st Contact Info) Description 06/28/2022 2:00 PM CDT Office Visit Division of Pulmonary Medicine in [place], [place] [address] [place] [phone] David Reynoso M.D. [address] [place] [address] [phone] Paralysis Diaphragm (Primary Dx) Social History Tobacco Use Types [...] How often do you attend chur or jew services? More than 4 times per year 06/26/2022 Do you belong to any clubs o r organizations such as scientology groups, unions, fraternal or athletic groups, or [...] and heating? Not hard at all 06/26/2022 [facility] of Occupat ional Health - Occupational Stress [...] Sex Assigned at Male 04/09/2018 9:30 PM FAT PRESSROOM WORKER Gender Identity Male 04/09/2018 9:30 PM FAT PRESSROOM WORKER Sexual Orientation Straight 04/09/2018 9: 30 PM FAT PRESSROOM WORKER documented as of this encounter Progress Notes * David Reynoso M.D. - 06/28/2022 2:00 PM CDT SUBJECTIVE [id number] progress note. ASSESSMENT / PLAN #1 Right hemidiaphragm weakness Mr. Ernst returns after undergoing pulmonary function tests and a chest x-ray. The pulmonary function tests are stable, and the chest x-ray may demonstrate a slight improvement in the left hemidiaphragm position. At this point I see no further intervention needed. Mr. Ernst did share that he is on a BiPAP mask with an inspiratory pressure of 10 and an expiratory pressure of 6. It is indeed a pleasure to be involved in this delightful patient's care. I am available for any problems or questions. MARGIN CODE: No charge. David Reynoso M.D. CT CT Job ID: [id number] documented in this encounter Plan of Treatment Not on file documented as of this encounter Visit Diagnoses Diagnosis Paralysis Diaphragm- Primary documented in this encounter Care Teams District Captain Relationship Specialty Start Date End Date Elsewhere, Pcp PCP - General Family Medicine 03/09/17 documented as of this encounter
--- OUTSIDE RECORDS SUMMARY | 2023-04-13 15:44 | XMS_ITS | Encounter Summary ---
Author Name Unknown Organization [facility] Address [address] [place] [address] Care Team Providers Care Cooker Syrup Name Role Phone Elsewhere, Pcp Primary Care Provider Unavailabl e Reason for Referral * Outpatient (Routine) - Closed Specialty Diagnoses / Procedures Referred By Contac t Referred To Contact Diagnoses Arthritis Inflammatory (HCC) Pain Foot Right Pain Low Back Chronic Pain Neck Procedures DX Hips and Pelvis Bilateral 5+ Views Sivan Garcia M.D., Lianna., C.M., M.P.H. 200 [place] [phone] [facility] Referral ID Status Reason Start Date Expiration Date Visits Re quested Visits Authorized [id number] Closed 07/25/2022 07/25/2023 1 1 * Outpatient (Routine) - Closed Specialty Diagnoses / Procedures Referred By Contac t Referred To Contact Diagnoses Arthritis Inflammatory (HCC) Pain Foot Right Pain Low Back Chronic Pain Neck Procedures DX Foot Ankle Bilateral 3+ Views Sivan Garcia M.D., Lianna., C.M., M.P.H. 200 [place] [phone] [facility] Referral ID Status Reason Start Date Expiration Date Visits Re quested Visits Authorized [id number] Closed 07/25/2022 07/25/2023 1 1 Reason for Visit * Outpatient (Routine) - Closed Specialty Diagnoses / Procedures Referred By Contanoop t Referred To Contact Diagnoses Arthritis Inflammatory (HCC) Pain Foot Right Pain Low Back Chronic Pain Neck Procedures DX Foot Ankle Bilateral 3+ Views Sivan Garcia M.D., Azael, Darron, M.P.H. [address] [place] [phone] [facility] Referral ID Status Reason Start Date Expiration Date Visits Re quested Visits Authorized [id number] Closed 07/25/2022 07/25/2023 1 1 Encounter Details Date Type Department Care Team (Latest Contact Info) Description 07/25/2022 3:59 PM CDT - 07/25/2022 11:59 PM CDT Hospital Encounter Department of Radiology, [facility], in [place], [place] [address] [place] [address] Sivan Garcia M.D., Lianna., C.Tr., M.P.H. [address] [place] [phone] Arthritis Inflammatory (HCC); Pain Foot Right; Pain [...] How often do you attend chur or taoism services? More than 4 times per year [...] and heating? Not hard at all 06/26/2022 [facility] of Occupat ional Health - [...] Sex Assigned at Male 04/09/2018 9:30 PM CORROSION CONTROL FITTER Gender Identity Male 04/09/2018 9:30 PM CORROSION CONTROL FITTER Sexual Orientation Straight 04/09/2018 9: 30 PM CORROSION CONTROL FITTER documented as of this encounter Medications at [...] 1 tablet by mouth daily. 0 10/19/2011 hydroCHLOROthiazide (HYDRODIURIL) 25 mg tablet Take 1 [...] (four) times a day as needed. via sde tube; may also use every 4 hrs [...] Name Priority Date/Time Associated Diagnosis Comments DX HIPS AND PELVIS BILATERAL MINIMUM 5 VIEWS RAD - Routine (most inpatients and all outpatients) 07/25/2022 4:46 PM CDT Arthritis Inflammatory (HCC) Pain Foot Right Pain Low Back Chronic Pain Neck DX FOOT ANKLE BILATERAL 3+ VIEWS RAD - Routine (most inpatients and all outpatients) 07/25/2022 4:46 PM CDT Arthritis Inflammatory (HCC) Pain Foot Right Pain Low Back Chronic Pain Neck documented in this encounter Results * DX Hips and Pelvis Bilateral 5+ [...] with interbody vertebral spacers. Sivan Garcia M.D., M.D., C.Tr., M.P.H. IMG DIAGNOSTIC IMAGING PROCEDURES * DX [...] planus. Probable bilateral ankle jointeffusions. Vascular calcifications. Shrhank Garcia M.D., M.D., CSherly., M.P.H. IMG DIAGNOSTIC IMAGING PROCEDURES documented in this encounter Visit Diagnoses Diagnosis Arthritis Inflammatory (HCC) Pain Foot Right Pain Low Back Chronic Pain Neck documented in this encounter Care Teams Cooker Syrup Relationship Specialty Start Date End Date Elsewhere, Pcp PCP - General Family Medicine 03/09/17 documented as of this encounter
--- OUTSIDE RECORDS SUMMARY | 2023-04-13 15:44 | XMS_ITS | Encounter Summary ---
Author Name Unknown Organization [facility] Address [address] [place] [address] Care Team Providers Care Mill Hand Plate Mill Name Role Phone Elsewhere, Pcp Primary Care Provider Unavailabl e Reason for Visit * Reason Onset Date Comments Pre-visit Intake 07/22/2022 Encounter Details Date Type Department Care Team (Latest Contact Info) Description 07/22/2022 7:15 AM CDT Clinical Communication Virtual Review in [place], [place] 200 [facility], [place] [phone] Pre-visit Intake Social History Tobacco Use Types [...] often do you attend chur ch or roman catholic services? More than 4 times per year 06/26/2022 Do you belong to any clubs o r organizations such as latter day groups, unions, fraternal or athletic groups, or [...] and heating? Not hard at all 06/26/2022 [facility] of Occupat ional Health - Occupational [...] Sex Assigned at Male 04/09/2018 9:30 PM COMP FIELD CASE MANAGER Gender Identity Male 04/09/2018 9:30 PM COMP FIELD CASE MANAGER Sexual Orientation Straight 04/09/2018 9: 30 PM COMP FIELD CASE MANAGER documented as of this encounter Plan of Treatment Not on file documented as of this encounter Visit Diagnoses Not on filedocumented in this encounter Care Teams Mill Hand Plate Mill Relationship Specialty Start Date End Date Elsewhere, Pcp PCP - General Family Medicine 03/09/17 documented as of this encounter
--- OUTSIDE RECORDS SUMMARY | 2023-04-13 15:44 | XMS_ITS | Encounter Summary ---
Author Name Unknown Organization [facility] Address [address] [place] [address] Care Team Providers Care Marinator Name Role Phone Elsewhere, Pcp Primary Care Provider Unavailabl e Reason for Referral * Outpatient (Routine) - Closed Specialty Diagnoses / Procedures Referred By Contac t Referred To Contact Diagnoses Arthritis Inflammatory (HCC) Pain Foot Right Pain Low Back Chronic Pain Neck Procedures DX Hand Bilateral 3+ Views and Wrist Bilateral 3+ Views Sivan Garcia M.D., Lianna., C.M., M.P.H. 200 [place] [phone] [facility] Referral ID Status Reason Start Date Expiration Date Visits Re quested Visits Authorized [id number] Closed 07/25/2022 07/25/2023 1 1 Reason for Visit * Outpatient (Routine) - Closed Specialty Diagnoses / Procedures Referred By Contac t Referred To Contact Diagnoses Arthritis Inflammatory (HCC) Pain Foot Right Pain Low Back Chronic Pain Neck Procedures DX Hand Bilateral 3+ Views and Wrist Bilateral 3+ Views Sivan Garcia M.D., Lianna., C.M., M.P.H. [address] [place] [phone] [facility] Referral ID Status Reason Start Date Expiration Date Visits Re quested Visits Authorized [id number] Closed 07/25/2022 07/25/2023 1 1 Encounter Details Date Type Department Care Team (Latest Contact Info) Description 07/25/2022 3:51 PM CDT - 07/25/2022 3:58 PM CDT Hospital Encounter Department of Radiology, [facility], in [place], [place] [address] [place] [address] Sivan Garcia M.D., Lianna., CMarvelM., M.P.H. [address] [place] [address] Arthritis Inflammatory (HCC); Pain Foot Right; Pain [...] week 06/26/2022 How often do you attend [facility] or religion services? More than 4 times per year [...] and heating? Not hard at all 06/26/2022 [facility] of Occupat ional [facility] - Occupational Stress Questionnaire Answer Date [...] place to sleep or slept in a residential (including now)? No 06/26/2022 Nutrition Answer Date [...] Sex Assigned at Male 04/09/2018 9:30 PM PR INTERNSHIP Gender Identity Male 04/09/2018 9:30 PM PR INTERNSHIP Sexual Orientation Straight 04/09/2018 9: 30 PM PR INTERNSHIP documented as of this encounter Medications at [...] (four) times a day as needed. via occupational health nurse tube; may also use every 4 hrs [...] Name Priority Date/Time Associated Diagnosis Comments DX HAND BILATERAL 3+ VIEWS AND WRIST BILATERAL 3+ VIEWS RAD - Routine (most inpatients and all outpatients) 07/25/2022 4:45 PM CDT Arthritis Inflammatory (HCC) Pain Foot Right Pain Low Back Chronic Pain Neck documented in this encounter Results * DX Hand Bilateral 3+ Views and [...] left 3rd middle phalanx. Sivan Garcia M.D., M.D., C.Tr., M.P.H. IMG DIAGNOSTIC IMAGING PROCEDURES documented in this encounter Visit Diagnoses Diagnosis Arthritis Inflammatory (HCC) Pain Foot Right Pain Low Back Chronic Pain Neck documented in this encounter Care Teams Marinator Relationship Specialty Start Date End Date Elsewhere, Pcp PCP - General Family Medicine 03/09/17 documented as of this encounter
--- OUTSIDE RECORDS SUMMARY | 2023-04-13 15:44 | XMS_ITS | Encounter Summary ---
Author Name Unknown Organization [facility] Address [address] [place] [id number] Care Team Providers Care Blind Installer Name Role Phone Elsewhere, Pcp Primary Care Provider Unavailabl e Reason for Visit * Outpatient (Routine) - Closed Specialty Diagnoses / Procedures Referred By Contac t Referred To Contact Diagnoses Arthritis Inflammatory (HCC) Pain Foot Right Pain Low Back Chronic Pain Neck Procedures RHU US-Guided Aspiration/Injection - Large Joint Sivan Garcia M.D., Lianna., CMarvelM., M.P.H. 200 [place] [address] [facility] Referral ID Status Reason Start Date Expiration Date Visits Re quested Visits Authorized [id number] Closed 07/25/2022 07/25/2023 1 1 Encounter Details Date Type Department Care Team (Latest Contact Info) Description 07/26/2022 2:30 PM CDT Procedure visit Division of Rheumatology in [place], [place] [address] [place] [phone] Sivan Garcia M.D., Lianna., C.M., M.P.H. [address] [place] [phone] Cirilo Dickerson III, M.D. [address] [place] [phone] Arthritis Inflammatory (HCC); Pain Foot Right; Pain [...] week 06/26/2022 How often do you attend [facility] or hindu services? More than 4 times per year 06/26/2022 Do you belong to any clubs o r organizations such as jew groups, unions, fraternal or athletic groups, or [...] and heating? Not hard at all 06/26/2022 [facility] - Occupational Stress [...] Sex Assigned at Male 04/09/2018 9:30 PM WIRE SAW OPERATOR Gender Identity Male 04/09/2018 9:30 PM WIRE SAW OPERATOR Sexual Orientation Straight 04/09/2018 9: 30 PM WIRE SAW OPERATOR documented as of this encounter Progress Notes * Skylar Jain L.P.NMarvel - 07/26/2022 2:30 PM CDT SUBJECTIVE REASON FOR VISIT Patient verified they are here today for joint aspiration of right knee. HISTORY OF PRESENT ILLNESS Anticoagulation therapy: No. Recent INR: NA Diabetes diagnosis: No Allergies to medications or supplies utilized during procedure: No Previous reaction to topical anesthetic: No OBJECTIVE ASSESSMENT Fall prevention interventions utilized: Walk With Me Pain Score Pre-procedure: 03/29 Pain Score Post-procedure: 03/29 Please see Education History report within medical record for completed patient education. documented in this encounter Procedure Notes * Cirilo Dickerson III, M.D. - 07/26/2022 2:30 PM CDTAssociated Order(s): RHU US- Guided Aspiration/Injection - Large Joint: R knee joint Pre-Procedure Diagnose(s): Arthritis Inflammatory (HCC); Pain Foot Right; Pain Low Back Chronic; Pain Neck Post-Procedure Diagnose(s): Arthritis Inflammatory (HCC); Pain Foot Right; Pain Low Back Chronic; Pain Neck Knee site- R knee joint : aspiration and diagnostic-therapeutic injection Performed by: Cirilo Dickerson III, M.D. Authorized by: Sivan Garcia M.D., M.D., C.M., M.P.H. Care team members present 1. Cirilo Dickerson III, M.D. 2. Skylar Jain L.P.N. PROCEDURE DETAILS Indications: R knee effusion Procedure Location knee Knee site: R knee joint Site prep: patient was prepped and draped in usual sterile fashion Patient position: supine Procedural approach: lateral Procedure [...] completed successfully: yes Complications: no apparent complications Post-procedure instructions: avoid strenuous activity for 2 days, avoid submersion of procedure site for 48 hours and post-procedure activity instructions provided Discharge instructions: ice area as needed for comfort, pain management instructions, dressing careand follow-up with ordering provider Comments Fluid also sent for Lyme PCR as requested. documented in this encounter Plan of Treatment Not on file documented as of this encounter Procedures Procedure Name Priority Date/Time Associated Diagnosis Comments LYME DISEASE PCR Routine 07/26/2022 2:34 PM CDT Arthritis Inflammatory (HCC) Pain Foot Right Pain Low Back Chronic Pain Neck CRYSTAL ID, BF Routine 07/26/2022 2:34 PM CDT Arthritis Inflammatory (HCC) Pain Foot Right Pain Low Back Chronic Pain Neck CELL COUNT AND DIFFERENTIAL, BF Routine 07/26/2022 2:34 PM CDT Arthritis Inflammatory (HCC) Pain Foot Right Pain Low Back Chronic Pain Neck [place] ARTHCS ASP/INJ MJR JT W US Routine 07/26/2022 2:30 PM CDT Arthritis Inflammatory (HCC) Pain Foot Right Pain Low Back Chronic Pain Neck documented in this encounter Results * Cell Count and Differential, Body Fluid [...] This test has been modified from the medical laboratory scientist's instructions. Its performance characteristics were determined by [facility] in a manner consistent with CLIA requirements. [...] Are: Synovial cells 07/27/2022 7:59 AM CDT DHPM Comment No blasts or malignant cells seen. 07/27/2022 7:59 AM CDT DHPM Reviewed by: [employer] 07/27/2022 7:59 AM CDT DHPM Fluid (Synovial Fluid, Right Knee) 07/26/2022 2:34 PM CDT 07/26/2022 3:34 PM CDT Sivan Garcia M.D., M.D., CMarvelM., M.P.H. LAB BODY FLUIDS AND STOOLS ORDERABLES Performing Organization Address [facility] de Phone Number [facility] 200 [place], [place] [phone] [place] [address] 200 [place] [address] * Crystal Identification, Body Fluid (07/26/2022 2:34 PM CDT) Fluid Type Synovial Fluid, Right Knee 07/26/2022 7:26 PM CDT PM Crystal ID None seen None seen 07/26/2022 7:26 PM CDT [facility] Fluid (Synovial Fluid, Right Knee) 07/26/2022 2:34 PM CDT 07/26/2022 3:34 PM CDT Sivan Garcia M.D., M.D., CSherly., M.P.H. LAB BODY FLUIDS AND STOOLS ORDERABLES Performing Organization Address [facility] de Phone Number [facility] 200 [place], [place] [phone] [place] [address] 200 [place] [address] * Lyme Disease PCR (07/26/2022 2:34 PM CDT) Specimen Source right knee 3:48 PM CDT DTL B. burgdorferi PCR Negative Negative 2022 3:48 PM CDT DTL B. mayonii PCR Negative Negative 07/28/2022 3:48 PM CDT DTL B. garinii/B. afzelii PCR Negative Negative 07/28/2022 3:48 PM CDT DTL Comment: ----ADDITIONAL INFORMATION---- This test was developed and its performance characteristics determined by [facility] in a manner consistent with CLIA requirements. This test has not been cleared or approved by the U.S. Food and Drug Administration. Fluid (Synovial Fluid, Right Knee) 07/26/2022 2:34 PM CDT 07/26/2022 5:31 PM CDT Sivan Garcia M.D., M.D., C.M., M.P.H. LAB MICROBIOLOGY - GENERAL ORDERABLES [facility] [address] [place] [address], [facility] DT [address] [place] [address] * [place] ARTHCS ASP/INJ MJR JT W US (07/26/2022 [...] M.D., M.D., C.M., M.P.H. PROCEDURE/MINOR SURGICAL ORDERABLES documented in this encounter Visit Diagnoses Diagnosis Arthritis Inflammatory (HCC) Pain Foot Right Pain Low Back Chronic Pain Neck documented in this encounter Care Teams Blind Installer Relationship Specialty Start Date End Date Elsewhere, Pcp PCP - General Family Medicine 03/09/17 documented as of this encounter
--- OUTSIDE RECORDS SUMMARY | 2023-04-13 15:45 | XMS_ITS | Encounter Summary ---
Author Name Unknown Organization [facility] Address [address] [place] [address] Care Team Providers Care Therapeutic Radiologist Name Role Phone Elsewhere, Pcp Primary Care Provider Unavailabl e Encounter Details Date Type Department Care Team (Late st Contact Info) Description 02/20/2003 Historical Ophthalmology RST OPH Kallie Rincon O.D. [address] [place] [address] Social History Tobacco Use Types Packs/Day Years Used Date Smoking Tobacco: Never Assessed Sex and Gender Information Value Date Recorded Sex Assigned at Male 04/09/2018 9:30 PM SCOUT Gender Identity Male 04/09/2018 9:30 PM SCOUT Sexual Orientation Straight 04/09/2018 9: 30 PM SCOUT documented as of this encounter Progress Notes * Kallie Rincon O.D. - 02/20/2003 12:00 AM CST Eye General CHIEF COMPLAINT Sore eyes. HISTORY OF PRESENT ILLNESS Pt. notes sore, burning eyes while reading. Notes that this has been going on over the last couple years. Vision seems stable. Has been on Prednisone in the past for Arthritis and neck pain, and notes that the eye problems seems to go away. His local MD has tried to rule out Psoriatic Arthritis. Hehas tried AT and notes that this helps temporarily. Denies flashes or floaters. IMPRESSION / REPORT / PLAN #1 Meibomian gland dysfunction OU. Plan: monitor periodically, gave patient dry eye instructions and sheet ( # 4113-03), gave patient eyelid hygiene instructions and sheet ( # 4113-02). #2 Pseudophakia OU, stable Plan: monitor annually. DIAGNOSIS #1 Meibomian gland dysfunction OU. #2 Pseudophakia OU, stable CDM Reports - EYEGEN Id: [id number] Status: Fnl documented in this encounter Plan of Treatment Not on file documented as of this encounter Visit Diagnoses Not on filedocumented in this encounter Care Teams Therapeutic Radiologist Relationship Specialty Start Date End Date Elsewhere, Pcp PCP - General Family Medicine 03/09/17 documented as of this encounter
--- OUTSIDE RECORDS SUMMARY | 2023-04-13 15:45 | XMS_ITS | Clinical Summary ---
Author Name Unknown Organization [facility] Address [place], [place] [address] Care Team Providers Care Four Corner Former Machine Operator Name Role Phone Stephen Carmichael MD Unavailable [phone] Tez Diane Unavailable Jordan Ha MD Primary Care Provider [phone] Mary Kay Herman FEED MANAGEMENT ADVISOR Unavailable Allergies Active Allergy Reactions Criticality Noted Date Comments Latex Erythema 07/15/[address] guided epidural injection Milk Based Formulas Other - Describe In Comment Field Low 12/31/2018 phlegm [place] Itching High 11/23/2016 Fresh Strawberries only Medications Medication Sig Dispensed Refills Start Date End Date Status fenofibrate nanocrystallized (TRICOR) 145 mg tablet Take 1 tablet by mouth once daily with a meal. 0 09/23/2009 Active albuterol HFA 90 mcg/actuation inhaler Inhale 2 Puffs by mouth 4 times daily if needed. 0 12/21/2018 Active hydroCHLOROthiazide (HCTZ) 25 mg tablet Take 1 tablet by mouth once daily. 0 12/21/2018 Active sildenafil, antihypertensive, (REVATIO) 20 mg tablet Take 40mg daily if needed 0 12/21/2018 Active methylPREDNISolone (MEDROL) 4 mg tablet Take 4 mg by mouth once daily with a meal. 0 Active tiZANidine (ZANAFLEX) 2 mg tablet take 1 tablet by mouth every 8 hours as needed for muscle spasticity 0 06/25/2022 Active meloxicam 15 mg tablet Take 15 mg by mouth once daily. 0 07/13/2022 Active amitriptyline (ELAVIL) 25 mg tabletIndications:Inso mnia, unspecified type,Pain Take 1 Tablet (25 mg) by mouth at bedtime. 30 Tablet 0 01/05/2023 Active overnight oximetryIndications:Mo rning headache,Diaphragm dysfunction For home use. On Room Air yes; On Oxygen no if yes; On CPAP no; On BiPAP yes 1 Each 0 01/05/2023 Active BiPapIndications:NIC (obstructive sleep apnea) bPAP machine for home use at pressure: I: 10 E: 6 cmw , Heated humidifier x 1 q 5 yr, Humidifier chamber x 1 q 6 mo, Full face mask x1 q 3mos, with cushion x 1 q mo, Heated tubing x 1 q 3 mo, Headgear x 1 q 6 mo, Filters: Disposable x 2 q mo non-disposable filters x1 q 6mo, Length of Need: 99 months, Frequency of use: Daily 1 Each 11 01/05/2023 Active Active Problems Problem Noted Date Diagnosed Date Polyp of colon 09/12/2022 Spondylolisthesis at L4-L5 level 04/03/2019 Seasonal allergic rhinitis 01/20/2019 Hypertension 01/20/2019 Erectile dysfunction 01/20/2019 Hyperlipidemia 01/20/2019 Cellulitis of back except buttock 01/20/2019 Wound infection after surgery 01/20/2019 Sepsis 01/20/2019 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 Seronegative rheumatoid arthritis 03/20/1989 Overview: on periodic steroid pulses, did not tolerate MTX/Plaquenil Spinal stenosis of lumbar region Asthma Sleep apnea Overview: On CPAP Immunizations Name Administration Dates Next Due COVID-19 vaccine (Moderna 100mcg/0.5mL) PF MDV 06/23/2020,05/26/2020 Influenza A (H1N1), Inactivated 01/28/2009 Influenza RIV4 (Age 18+ Year s) PRESERV FREE 12/21/2018 Influenza Virus, Unspecified 02/21/2012, 02/26/2011,12/31/2007,2006,03/08/2006,01/21/2005,01/05/2004,1 04/06/2002,12/21/2001,02/27/2001 Influenza, High-dose Inactivated 01/04/2017,01/19,01/28/2013 Influenza, IIV3 (Age 6-35 mos) 02/19/2013,2008 Influenza, IIV3 (Age >=3 years) 01/29/20,02/21/2012,12/31/2007,2006,03/08/2006,01/21/2005,01/05/2004,1 04/06/2002,12/21/2001,02/27/2001 Pneumococcal Poly,23-Valent (Pneumovax) 01/25/2017,02/27/2001 Pneumococcal conj 13-Valent (Prevnar 13) 01/15/2015 Pneumococcal, Unspecified 03/20/2007 Td (Age >=7 Years) 12/21/2001 Td, Preservative Free (age > = 7 Years) 12/21/2001 Tdap 02/19/2013,02/04/2013 Zoster (Zostavax-ZVL, live) 02/21/2012 Family History Medical History Relation Name Comments Heart Disease Father Heart Disease Mother Asthma Sister Relation Name Status Comments Father Mother Sister Social History Tobacco Use Types Packs/Day Years Used Date Smoking Tobacco: Never Smokeless Tobacco: Never Tobacco Cessation:Counseling Given: Yes Alcohol Use Standard Drinks/Week Comments Not Currently 0 (1 standard drink = 0.6 oz pur e alcohol) Social Connections Answer Date Recorded Frequency of Communication with Friends and Fami ly Not on file 11/11/2021 Sex and Gender Information Value Date Recorded Sex Assigned at Not on file Gender Identity Not on file Sexual Orientation Not on file Obstetrics History Last Filed Vital Signs Vital Sign Reading Time Taken Comments Blood Pressure 121/79 10/12/2022 1:05 PM CDT tow er Pulse 81 10/12/2022 1:05 PM CDT Temperature 36.6 ??C (97.8 ??F) 09/12/2022 11:33 AM C DT Respiratory Rate 14 09/12/2022 1:30 PM CDT Oxygen Saturation 95% 10/12/2022 1:05 PM CDT Inhaled Oxygen Concentration - - Weight 92.5 kg (204 lb) 10/12/2022 1:05 PM CDT Height 167.6 cm (5' 6) 09/12/2022 11:33 AM CDT Body Mass Index 32.93 09/12/2022 11:33 AM CDT Plan of Treatment Health Maintenance Due Date Last Done Comments Depression screening for age 12+ 1961 Hepatitis C screening for ag e 18-79 11/06/1967 Lipids for age 45-75 1994 Zoster (shingles) series for age 50+ (2 of 3) 04/17/2012 02/21/2012 Medicare Wellness for age 65+ 2014 BMI (ht and wt on same day) for age 18+ 03/27/2020 03/27/2019, 02/21/2019, 01/28/2019, Additional history exists COVID-19 vaccine series ( season) 2022 02/18/2021, 06/23/2020, 05/26/2020 Influenza for age 65+ 11/18/2022 12/21/2018 , 01/04/2017, 02/07/2016, Additional history exists Tetanus booster 02/19/2023 02/19/2013, 01/18, 12/21/2001, Additional history exists Colonoscopy through age 75 09/13/2027 09/12/2022 Tdap Completed 02/19/2013, 02/04/2013 Pneumococcal series for age 65+ Completed 01/25/2017, 01/15/2015, 03/20/2007, Additional history exists Medical Devices Implanted Type Area Retail Grocer Device Identifier Shelf Expiration Date Model / Serial / Lot Jairon Lmbr 80x5.5mm Tsrh 3d Cvd Titnm - [id number] Implanted:Qty: 1 on 04/04/2019 by Andrew Rodriguez MD at [facility] Spine Implants Spine Medtronic Spine/Ortho [id number]# / / Jairon Lmbr 70x5.5mm Tsrh 3d Cvd Titnm - [id number] Implanted:Qty: 1 on 04/04/2019 by Andrew Rodriguez MD at [facility] Spine Implants Spine Medtronic Spine/Ortho [id number]# / / [id number] one Matrix 10cc Todd Puttydbm Implanted:Qty: 1 on 04/04/2019 by Andrew Rodriguez MD at [facility] Explanted:at [facility] (Quantity not on file) Spine Medtronic Spine/Ortho 12/24/2021 [id number] / [id number] / [id number] one 1-4mm 60cc Medtronic Fine Canclls Freeze Dried Implanted:Qty: 1 on 04/04/2019 by Andrew Rodriguez MD at [facility] Explanted:at [facility] (Quantity not on file) Spine Medtronic Spine/Ortho 06/19/2023 [id number]# / [id number] / Set Screw Lmbr Tsrh 3dx - [id number] Implanted:Qty: 6 on 04/04/2019 by Andrew Rodriguez MD at [facility] Spine Medtronic Spine/Ortho [id number]# / / Cnnctr Lmbr Sm Tsrh 3dx Offsettitnm - [id number] Implanted:Qty: 6 on 04/04/2019 by Andrew Rodriguez MD at [facility] Spine Medtronic Spine/Ortho [id number]# / / Screw Lmbr Post 6.5x45mm Tsrh 3dx Og Thin Va - [id number] Implanted:Qty: 2 on 04/04/2019 by Andrew Rodriguez MD at [facility] Spine Medtronic Spine/Ortho [id number] / / Screw Lmbr Post 6.5x50mm Tsrh 3dx Og Thin Va - [id number] Implanted:Qty: 4 on 04/04/2019 by Andrew Rodriguez MD at [facility] Spine Medtronic Spine/Ortho [id number]# / / Spacer Lmbr [id number] 10deg Elevate Extra-Lordotic Peek Titn - [id number] Implanted:Qty: 2 on 04/04/2019 by Andrew Rodriguez MD at [facility] Spine Medtronic Spine/Ortho [id number]# / / [id number] Spacer Lmbr [id number] 10deg Elevate Extra-Lordotic Peek Titn - [id number] Implanted:Qty: 1 on 04/04/2019 by Andrew Rodriguez MD at [facility] Spine Medtronic Spine/Ortho 01/24/2027 [id number]# / / [id number] Directives Latest Code Status on File Code Status Date Activated Date Inactivated Comments Full Code 09/12/2022 11:19 AM 09/12/2022 4:30 PM Question Answer Comments Code Status Discussion: Discussed Code Status History Code Status Date Activated Date Inactivated Comments Full Code 04/04/2019 7:46 PM 04/07/2019 2:44 PM Question Answer Comments Code Status Discussion: Not Discussed Full Code 04/04/2019 1:19 PM 04/04/2019 7:45 PM Question Answer Comments Code Status Discussion: Not Discussed Full Code 01/20/2019 5:38 AM 01/22/2019 2:29 PM Full Code 01/16/2019 6:07 AM 01/17/2019 7:53 PM Care Teams Four Corner Former Machine Operator Relationship Specialty Start Date End Date Jordan Ha MD [address] [place] [address] PCP - General Family Practice 12/19/18 Stephen Carmichael MD [address] [place] [address] 06/02/09 Tez Diane [address] [place] [address] [place] [address] 11/22/17 Mary Kay Herman NP [facility] [address] Nurse Practitioner - Family 01/05/23
--- OUTSIDE RECORDS SUMMARY | 2023-04-13 15:45 | XMS_ITS | Encounter Summary ---
Author Name Unknown Organization [facility] Address [address] [place] [address] Care Team Providers Care Nuclear Radiation Engineer Name Role Phone Elsewhere, Pcp Primary Care Provider Unavailabl e Reason for Referral * Outpatient (Routine) - Closed Specialty Diagnoses / Procedures Referred By Contac t Referred To Contact Diagnoses Diaphragm Disorder Procedures DX Chest AP or PA and Lateral 2 Views David Reynoso M.D. [address] [place] [address] [facility] Referral ID Status Reason Start Date Expiration Date Visits Re quested Visits Authorized [id number] Closed 06/28/2022 06/28/2023 1 1 Reason for Visit * Outpatient (Routine) - Closed Specialty Diagnoses / Procedures Referred By Contac t Referred To Contact Diagnoses Diaphragm Disorder Procedures DX Chest AP or PA and Lateral 2 Views David Reynoso M.D. [address] [place] [address] [facility] Referral ID Status Reason Start Date Expiration Date Visits Re quested Visits Authorized [id number] Closed 06/28/2022 06/28/2023 1 1 Encounter Details Date Type Department Care Team (Latest Contact Info) Description 06/28/2022 10:27 AM CDT - 06/28/2022 11:59 PM CDT Hospital Encounter Department of Radiology, [facility], in [place], [place] [address] [place] [address] David Reynoso M.D. [address] [place] [address] Diaphragm Disorder Discharge Disposition: Home or Self Care Social [...] often do you attend [facility] or islam services? More than 4 times per year [...] and heating? Not hard at all 06/26/2022 [facility] - Occupational Stress Questionnaire Answer Date Recorded [...] place to sleep or slept in a usp (including now)? No 06/26/2022 Nutrition Answer Date [...] Assigned at Male 04/09/2018 9:30 PM MANAGER PROGRESSIVE CARE Gender Identity Male 04/09/2018 9:30 PM MANAGER PROGRESSIVE CARE Sexual Orientation Straight 04/09/2018 9: 30 PM MANAGER PROGRESSIVE CARE documented as of this encounter Medications at [...] (four) times a day as needed. via doctor of dental surgery tube; may also use every 4 hrs as needed. 0 07/08/2015 sildenafil (REVATIO) 20 mg tablet Take 40mg daily if needed 0 12/21/2018 tiZANidine (ZANAFLEX) 2 mg tablet Take 2 mg by mouth at bedtime. For right leg muscle spasm 0 06/25/2022 methylPREDNISolone (MEDROL) 4 mg tablet Take 1 tablet by mouth daily. 0 07/08/2015 09/22/2022 tadalafil (CIALIS) 10 mg tablet Take 0.5 tablets by mouth daily as needed. 0 03/18/2013 07/22/2022 documented as of this encounter Plan of Treatment Not on file documented as of this encounter Procedures Procedure Name Priority Date/Time Associated Diagnosis Comments DX CHEST AP OR PA AND LATERAL 2 VIEWS RAD - Routine (most inpatients and all outpatients) 06/28/2022 11:25 AM CDT Diaphragm Disorder documented in this encounter Results * DX Chest AP or PA and Lateral 2 Views (06/28/2022 11:25 AM CDT) Anatomical Region Laterality Modality Chest, Thoracic RST LOS, Tho racic ARZ LOS, Thoracic FLA LOS N/A Digital Radiography 06/28/2022 11:5 9 AM CDT Impressions 06/28/2022 12:00 PM CDT Elevation the right hemidiaphragm is somewhat less than on 04/10/2018, with improved atelectasis. Otherwise no change. Mild cardiomegaly is accentuated by shallow inspiration. Tortuous aorta. Chest otherwise negative. Narrative 06/28/2022 12:00 PM CDT EXAM: ??DX CHEST AP OR PA AND LATERAL 2 VIEWS Procedure Note Mark Muniz M.D. - 06/28/2022 EXAM: DX CHEST AP OR PA AND LATERAL 2 VIEWS IMPRESSION: Elevation the right hemidiaphragm is somewhat less than on 04/10/2018,with improved atelectasis. Otherwise no change. Mild cardiomegaly is accentuated byshallow inspiration. Tortuous aorta. Chest otherwise negative. David ADDISON DIAGNOSTIC IMAGI NG PROCEDURES documented in this encounter Visit Diagnoses Diagnosis Diaphragm Disorder documented in this encounter Care Teams Nuclear Radiation Engineer Relationship Specialty Start Date End Date Elsewhere, Pcp PCP - General Family Medicine 03/09/17 documented as of this encounter
--- OUTSIDE RECORDS SUMMARY | 2023-04-13 15:45 | XMS_ITS | Encounter Summary ---
Author Name Unknown Organization [facility] Address [address] [place] [address] Care Team Providers Care Nailer Machine Name Role Phone Elsewhere, Pcp Primary Care Provider Unavailabl e Reason for Referral * Outpatient (Routine) - Closed Specialty Diagnoses / Procedures Referred By Contac t Referred To Contact Pulmonary Medicine David Reynoso M.D. [address] [place] [address] [facility] Referral ID Status Reason Start Date Expiration Date Visits Re quested Visits Authorized [id number] Closed 06/28/2022 06/27/2025 1 1 * Outpatient (Routine) - Closed Specialty Diagnoses / Procedures Referred By Contac t Referred To Contact Diagnoses Diaphragm Disorder Procedures DX Chest AP or PA and Lateral 2 Views David Reynoso M.D. [address] [place] [address] [facility] Referral ID Status Reason Start Date Expiration Date Visits Re quested Visits Authorized [id number] Closed 06/28/2022 06/28/2023 1 1 Reason for Visit * Outpatient (Routine) - Closed Specialty Diagnoses / Procedures Referred By Contac t Referred To Contact Pulmonary Medicine Diagnoses Diaphragm Disorder Jordan Ha M.D. [address], [place] [address] [facility] Referral ID Status Reason Start Date Expiration Date Visits Re quested Visits Authorized [id number] Closed 06/23/2022 06/23/2023 1 1 Encounter Details Date Type Department Care Team (Latest Contact Info) Description 06/28/2022 9:00 AM CDT Comprehensive Visit Division of Pulmonary Medicine in [place], [place] [address] [place] [address] David Reynoso M.D. [address] [place] [address] Diaphragm Disorder Social History Tobacco Use Types Packs/Day Years Used Date Smoking Tobacco: Never Smokeless Tobacco: Never Tobacco Cessation:Counseling Given: Not Answered Alcohol Use Standard Drinks/Week Comments No 0 [...] How often do you attend chur or sabianism services? More than 4 times per year [...] Not hard at all 06/26/2022 [facility] [place] of Occupat ional Health - Occupational Stress [...] Sex Assigned at Male 04/09/2018 9:30 PM AIRCRAFT COMMUNICATOR Gender Identity Male 04/09/2018 9:30 PM AIRCRAFT COMMUNICATOR Sexual Orientation Straight 04/09/2018 9: 30 PM AIRCRAFT COMMUNICATOR documented as of this encounter Last Filed Vital Signs Vital Sign Reading Time Taken Comments Blood Pressure 158/98 06/28/2022 8:51 AM CDT Pulse 82 06/28/2022 8:51 AM CDT Temperature 35.9 ??C (96.6 ??F) 06/28/2022 8:51 AM CD T Respiratory Rate - - Oxygen Saturation 97% 06/28/2022 8:51 AM CDT Inhaled Oxygen Concentration - - Weight 92.8 kg (204 lb 9.4 oz) 06/28/2022 8:51 A M CDT Height 162.9 cm (5' 4.13) 06/28/2022 8:51 AM CD T Body Mass Index 34.97 06/28/2022 8:51 AM CDT documented in this encounter Consult Notes * David Reynoso M.D. - 06/28/2022 9:00 AM CDT SUBJECTIVE REFERRAL SOURCE Dr. Ha. REASON FOR CONSULT Paralyzed right hemidiaphragm. HISTORY OF PRESENT ILLNESS Paralyzed right hemidiaphragm I had the opportunity to review the record, interview, and examine Mr. Anders Ernst. Mr. 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 He was seen by our colleague, Dr. Anthony Loya on April 11, 2018, for this. At that time, it was felt that observation was best interest. Over the course of the last 4 years, Mr. Ernst has done well, but he has noticed recently that hefeels that there is some activity of his right diaphragm. This is noted by differences in what sounds like an expiratory maneuver of moving from 3600 to above 4 L. He also feels that there is more mov ement in his right hemithorax. He is here now to see if there is anything further that can be done. 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 There is a prominent callus and bulging in this region. He was seen by our colleagues in Orthopedics back in 2018 for this and he feels that it may be contributing to some difficulty with clearing secretions. OBJECTIVE PHYSICAL EXAMINATION Lungs: Auscultation of the chest demonstrated bilateral breath sounds. They were a little bit more diminished on the right than the left, but they were clearly present. Extremities: There was no lower extremity edema. DIAGNOSTICS We did review the previous pulmonary function tests from March of 2018 that were totally normal. ASSESSMENT / PLAN #1 Right hemidiaphragm paralysis At this point, I think Mr. Ernst is actually doing very well. We will update the pulmonary function tests and a chest x-ray to get an idea of the anatomic location of the diaphragm and the pulmonary function. We did discuss the need for continued weight reduction. I think Mr. Ernst is motivatedto do so. #2 Clearing of the throat Mr. Ernst and his both brought up the issue of continued clearing of the throat. We talked about the mucus that comes from the lung and how there may be more mucus because of a little atelectasis in the right lower lobe, but the clearing is a normal phenomenon that may have become almost habitual. We did talk about the possibility of microaspiration and stressed the importance of nothing to eat or drink at least 2-3 hours before bedtime. Mr. Ernst does have sleep-disordered breathing and he is on a BiPAP machine. I will see Mr. Schulering back with the completion of the above testing. MARGIN CODE: Forty-five minutes. David Reynoso M.D. CT CT Job ID: [id number]/ear documented in this encounter Plan of Treatment Scheduled Referrals Name Type Priority Associated Diagnoses Orde r Schedule Pulmonary Medicine office visit (clinic) Outpatient Referral Routine Expected: 06/28/2022 (Approximate), Expires: 09/28/2023 documented as of this encounter Results * Pulmonary Function Tests (06/28/2022 12:09 PM CDT) FVC 3.70 L 06/28/2022 3:12 PM CDT [facility] FEV1 2.64 L 06/28/2022 3:12 PM CDT [facility] FEV1/FVC 71.48 % 06/28/2022 3:12 PM CDT [facility] JZZ34-86% 1.69 L/s 06/28/2022 3:12 PM CDT [facility] PEF PRE 8.69 L/s 06/28/2022 3:12 PM CDT [facility] PIF PRE 5.17 L/s 06/28/2022 3:12 PM CDT [facility] FEF 50 % FIF 50 PRE 55.70 % 06/28/2022 3:12 PM CDT [facility] FET PRE 14.95 sec 06/28/2022 3:12 PM CDT [facility] MVV 101.92 L/min 06/28/2022 3:12 PM CDT [facility] DLCO 22.05 ml/(min*mm Hg) 06/28/2022 3:12 PM CDT [facility] VA 5.38 L 06/28/2022 3:12 PM CDT [facility] TLC 6.00 L 06/28/2022 3:12 PM CDT [facility] FRCPLETH PROVBASE 3.15 L 06/28/2022 3:12 PM CDT [facility] RV 2.27 L 06/28/2022 3:12 PM CDT [facility] RV % TLC PRE 37.78 % 06/28/2022 3:12 PM CDT [facility] 06/28/2022 12:0 9 PM CDT Impressions [facility] - 06/28/2022 3:12 PM CDT Normal study. Lung volumes, spirometry, diffusing capacity unadjusted for hemoglobin, maximal respiratory pressures, and inspiratory flow-volume curve are all normal. Compared to 04/11/2018, there has been no significant change. Narrative Procedure Note John Hull M.D. - 06/28/2022 IMPRESSION: Normal study. Lung volumes, spirometry, diffusing capacity unadjusted forhemoglobin, maximal respiratory pressures, and inspiratory flow-volumecurve are all normal. Compared to 04/11/2018, there has been nosignificant change. David Reynoso M.D. PFT ORDERABLES [facility] NA * DX Chest AP or PA and [...] this encounter Visit Diagnoses Diagnosis Diaphragm Disorder Diaphragm Disorder documented in this encounter Care Teams Nailer Machine Relationship Specialty Start Date End Date Elsewhere, Pcp PCP - General Family Medicine 03/09/17 documented as of this encounter
--- OUTSIDE RECORDS SUMMARY | 2023-04-13 15:45 | XMS_ITS | Encounter Summary ---
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 [address] [place] [phone] [facility] Referral ID Status Reason Start Date Expiration Date Visits Re quested Visits Authorized [id number] Closed 06/23/2022 06/23/2023 1 1 * Outpatient (Routine) - Closed Specialty Diagnoses / Procedures Referred By Contac t Referred To Contact Pulmonary Medicine Diagnoses Diaphragm Disorder Jordan Ha M.D. [address] [place] [phone] [facility] Referral ID Status Reason Start Date Expiration Date Visits Re quested Visits Authorized [id number] Closed 06/23/2022 06/23/2023 1 1 Encounter Details Date Type Department Care Team (Late st Contact Info) Description 06/23/2022 [facility] [address] [place] [address] Jordan Ha M.D. 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 More than 4 times per year 06/26/2022 Do you belong to any clubs o r organizations such as anglican groups, unions, fraternal or athletic groups, or [...] place to sleep or slept in a [place] [facility] [place] (including now)? No 06/26/2022 Nutrition Answer Date Recorded Nutrition: EVOO Fat Source No 06/26 On average, how many serving s of fruits and vegetables do you eat per day (serving size is equal to 1 cup or approximately the size of a tennis ball)? 2-3 06/26/2022 Dental Answer Date Recorded Dental: Regular Dentist Yes 06/27/19 Employment Answer Date Recorded Employment status Retired 06/26/2022 Sex and Gender Information Value Date Recorded Sex Assigned at Male 04/09/2018 9:30 PM CASINO INVESTIGATOR Gender Identity Male 04/09/2018 9:30 PM CASINO INVESTIGATOR Sexual Orientation Straight 04/09/2018 9: 30 PM CASINO INVESTIGATOR documented as of this encounter Plan of Treatment Scheduled Referrals Name Type Priority Associated Diagnoses Orde r Schedule Pulmonary Medicine Referral Outpatient Referral Routine Diaphragm Disorder Expected: 06/23/2022 (Approximate), Expires: 09/23/2023 Rheumatology Referral Outpatient Referral Routine Rheumatoid Arthritis Without Rheumatoid Factor Unspecified Site (HCC) Expected: 06/23/2022 (Approximate), Expires: 09/23/2023 documented as of this encounter Visit Diagnoses Diagnosis Diaphragm Disorder- Primary Rheumatoid Arthritis Without Rheumatoid Factor Unspecified Site (HCC) documented in this encounter Care Teams Rickshaw Driver Relationship Specialty Start Date End Date Elsewhere, Pcp PCP - General Family Medicine 03/09/17 documented as of this encounter
== END 2023-04-11 08:20 | disposition home or self-care (01) ==
LOC: NFLDREF 04-13 15:41
PROVIDERS: PCP Family Medicine; Referring Provider Family Medicine; Visit Provider Family Medicine
DX: E78.5 Hyperlipidemia, unspecified (principal); Z12.5 Encounter for screening for malignant neoplasm of prostate; I10 Essential (primary) hypertension; N52.9 Male erectile dysfunction, unspecified
CPT/HCPCS: 80053; 80061; G0103

== ENCOUNTER 2023-05-05 10:41 | Outpatient (REF) | payer MEDICARE, BC, SELFPAY ==
--- OUTSIDE RECORDS SUMMARY | 2023-05-05 10:45 | XMS_ITS | Encounter Summary ---
Author Name Unknown Organization [facility] Address [address] [place] [address] Care Team Providers Care Siebel Administrator Name Role Phone Elsewhere, Pcp Primary Care Provider Unavailabl e Encounter Details Date Type Department Care Team (Late st Contact Info) Description 04/13/2023 Clinical Communication Division of Rheumatology in [place], [place] [address] [place] [phone] Sivan Garcia M.D., MDonald., C.M., M.P.H. [address] [place] [phone] Social History Tobacco Use Types Packs/Day Years [...] often do you attend chur ch or yarsani services? More than 4 times per year [...] and heating? Not hard at all 06/26/2022 [facility] of Occupat ional Health - Occupational [...] Sex Assigned at Male 04/09/2018 9:30 PM OUTBOARD MOTOR TESTER Gender Identity Male 04/09/2018 9:30 PM OUTBOARD MOTOR TESTER Sexual Orientation Straight 04/09/2018 9: 30 PM OUTBOARD MOTOR TESTER documented as of this encounter Plan of Treatment Not on file documented as of this encounter Visit Diagnoses Not on filedocumented in this encounter Care Teams Siebel Administrator Relationship Specialty Start Date End Date Elsewhere, Pcp PCP - General Family Medicine 03/09/17 documented as of this encounter
--- OUTSIDE RECORDS SUMMARY | 2023-05-05 10:45 | XMS_ITS | Clinical Summary ---
Author Name Unknown Organization [facility] Address [address] [address] Care Team Providers Care Monitor And Storage Bin Tender Name Role Phone Tez Diane MD Primary Care Provider [phone] Source Comments You are receiving this document as you are listed as the primary care provider,follow-up provider, or the patient has been referred to you for consultation.This is in compliance with the Medicare and[facility] Hospitalcaid EHR Incentive Program,which states Providers who transition their patient to another setting of careor provider of care or refers their patient to another provider of care shouldprovide summary care record for each transition of care or referral. [employer] Allergies Active Allergy Reactions Criticality Noted Date Comments Berries 11/23/2016 Strawberries Lactase-Lactobacillus 11/23/2016 Medications Medication Sig Dispensed Refills Start Date End Date Status fenofibrate (TRICOR) 145 MG tablet Take 145 mg by mouth daily. Active methylPREDNISolone (MEDROL) 2 MG tablet Take 2 mg by mouth daily. Active hydroCHLOROthiazide 12.5 MG capsule Take 12.5 mg by mouth daily. Active Meloxicam (MOBIC) 15 MG tablet Take 15 mg by mouth daily. Active Active Problems Problem Noted Date Diagnosed [...] Services) 1950 Medicare Annual Wellness Visit 1950 Cholesterol 1984 Zoster/Shingles (2 of 3) 04/17/2012 02/21/2012 COVID-19 Vaccine ( season) 2022 06/23/2020, 05/26/2020 Influenza (#1) 2022 12/20/2019, 1006/2018, 01/04/2017, Additional history exists DTaP/Tdap/Td (3 - [...] age to complete this topic Care Teams Monitor And Storage Bin Tender Relationship Specialty Start Date End Date Tez Diane MD [address] [place] [id number] PCP - General 08/12/11
--- OUTSIDE RECORDS SUMMARY | 2023-05-05 10:45 | XMS_ITS | Encounter Summary ---
Author Name Unknown Organization [facility] Address [address] [place] [id number] Care Team Providers Care Breaker Mechanic Name Role Phone Elsewhere, Pcp Primary Care Provider Unavailabl e Encounter Details Date Type Department Care Team (Latest Contact Info) Description 09/26/2022 9:48 AM CDT - 09/26/2022 11:59 PM CDT Hospital Encounter Department of Laboratory Medicine and Pathology, [facility] in [place], [place] [address] [place] [phone] Sivan Garcia M.D., Lianna., C.M., M.P.H. [address] [place] [phone] Arthritis Inflammatory (HCC); Pain Foot Right; Pain [...] any clubs o r organizations such as episcopalian groups, unions, fraternal or athletic groups, or [...] and heating? Not hard at all 06/26/2022 [facility] of Occupat ional Health - Occupational [...] place to sleep or slept in a [facility] (including now)? No 06/26/2022 Nutrition Answer Date [...] Sex Assigned at Male 04/09/2018 9:30 PM COSMETIC MAKER Gender Identity Male 04/09/2018 9:30 PM COSMETIC MAKER Sexual Orientation Straight 04/09/2018 9: 30 PM COSMETIC MAKER documented as of this encounter Medications [...] (four) times a day as needed. via compensation and benefits analyst tube; may also use every 4 hrs [...] Iron-Binding Capacity (09/26/2022 10:07 AM CDT) Pathologist [facility] Iron 100 50 - 150 mcg/dL 09/26/2022 12:13 PM CDT DTL Total Iron Binding Capacity 426(H) 250 - 400 mcg/dL 09/26/2022 12:13 PM CDT DTL Percent Saturation 23 14 - 50 % 09/26/2022 12:13 PM CDT DTL Blood (Blood, Venous) 09/26/2022 10:07 AM CDT 09/26/2022 11:29 AM CDT Sivan Garcia M.D., M.D., C.M., M.P.H. LAB BLOOD ADD-ON Performing Organization Address City/[facility]/ZIP Co de Phone Number [facility] [address] [place] [address], [facility] [address] [place] [address] * (ABNORMAL) CRP (C-Reactive Protein) (09/26/2022 10:07 AM CDT) C-Reactive Protein (CRP), S 6.2(H) <5.0 mg/L 09/26/2022 12:13 PM CDT DTL Blood (Blood, Venous) 09/26/2022 10:07 AM CDT 09/26/2022 11:29 AM CDT Sivan Garcia M.D., Lianna., C.M., M.P.H. LAB BLOOD ADD-ON Performing Organization Address City/[facility]/ZIP Co de Phone Number [facility] [address] [place], [place] [phone] [place] [address] [facility] [place]note 2[facility] [address] [place] [address] * (ABNORMAL) BUN (Blood Urea Nitrogen) (09/26/2022 10:07 AM CDT) BUN (Blood Urea Nitrogen), S 35(H) 8 - 24 mg/dL 09/26/2022 12:56 PM CDT DTL Blood (Blood, Venous) 09/26/2022 10:07 AM CDT 09/26/2022 11:29 AM CDT Sivan Garcia M.D., Lianna., C.M., M.P.H. LAB BLOOD ADD-ON Performing Organization Address City/[facility] Co de Phone Number [facility] [address] [place] [address] * (ABNORMAL) Creatinine with Estimated GFR (09/26/2022 10:07 AM CDT) Creatinine 1.62(H) 0.74 - 1.35 mg/dL 09/26/2022 12:13 PM CDT DTL Estimated GFR (eGFR) 45(L) >=60 mL/min/BSA 09/26/2022 12:13 PM CDT DTL Comment: Estimated GFR calculated using the 2020 CKD_EPI creatinine equation. Blood (Blood, Venous) 09/26/2022 10:07 AM CDT 09/26/2022 11:29 AM CDT Sivan Garcia M.D., M.D., C.M., M.P.H. LAB BLOOD ADD-ON [facility] [address] [place], [place] [phone] [place] [address] [address] * (ABNORMAL) CBC with Differential, Blood (09/26/2022 [...] M.D., Lianna., C.M., M.P.H. LAB BLOOD ADD-ON [facility] [address] [place] [address], [facility] [place][note 2] [address] [place] [address] documented in this encounter Visit Diagnoses Diagnosis Arthritis Inflammatory (HCC) Pain Foot Right Pain Low Back Chronic Pain Neck documented in this encounter Care Teams Breaker Mechanic Relationship Specialty Start Date End Date Elsewhere, Pcp PCP - General Family Medicine 03/09/17 documented as of this encounter
--- OUTSIDE RECORDS SUMMARY | 2023-05-05 10:45 | XMS_ITS | Clinical Summary ---
Author Name Unknown Organization [facility] Address [address] [place] [address] Care Team Providers Care Cook Apprentice Pastry Name Role Phone Elsewhere, Pcp Primary Care Provider Unavailabl e Source Comments Patient records contain information from all sites at [facility]. For routine questions regarding patient records, call [phone] during business hours, M-F 8:00 AM - 5:00 PM Central Time. Record requests for emergency care only can be directed to [phone] at any time.[facility] Allergies Active Allergy Reactions Criticality Noted Date Comments Latex Other (see comments) 07/15/[address] guided epidural injection [place] Other (see comments),Itching High 11/23/2016 Strawberries Fresh Strawberries only Medications Medication Sig Dispensed Refills Start Date End Date Status Rx albuterol (RX PROVENTIL HFA,VENTOLIN HFA) 90 mcg/actuation inhaler Inhale 2 puffs 4 (four) times a day as needed. via monitoring and evaluation advisor tube; may also use every 4 hrs [...] 04/13/2023 Clinical Communication Division of Rheumatology in [place], [place] [address] [place] [address] Sivan Garcia M.D., M.D., C.M., M.P.H. from [...] How often do you attend chur or latter day services? More than 4 times per year 06/26/2022 Do you belong to any clubs o r organizations such as confucianist groups, unions, fraternal or athletic groups, or [...] heating? Not hard at all 06/26/2022 [facility] of Occupat ional Health - Occupational [...] Sex Assigned at Male 04/09/2018 9:30 PM EPIC ANALYST Gender Identity Male 04/09/2018 9:30 PM EPIC ANALYST Sexual Orientation Straight 04/09/2018 9: 30 PM EPIC ANALYST Last Filed Vital Signs Vital Sign Reading [...] 2022-2 4 season) 2022 02/18/2021, 06/23/2020, 05/26/2020 Depression Screening (Annual PHQ-2) 03/20/2023 Fall Risk Screen (Annual) 03/20/2023 Fasting Glucose for Diabetes Screening 07/25/2025 07/25/2022, 04/05/2019, 01/20/2019, Additional history exists Colonoscopy 09/12/2032 09/12/2022, 05/2012 (Performed elsewhere), 02/20/2003 Colorectal Cancer Screening 09/12/2032 DTaP,Tdap,and Td Vaccines (4 - Td or Tdap) 04/17/2033 04/17/2023, 02/19/2013, 02/04/2013, Additional history exists Pneumococcal vaccine (65+ years) Completed 01/25/2017, 01/15/2015, 03/20/2007, Additional history exists Influenza Vaccine Completed 01/26/2023, , 02/09/2021, Additional history exists Medical Devices Implanted Type Area Draw Hand Device Identifier Shelf Expiration Date Model / Serial / Lot Ocular Lens-03/20/1997 Implanted:03/1997 (Quantity not on file) Ocular Lens Bilatera l: Eye Description:Both eyes Spine Implant-03/20/19 20 Implanted:03/2019 (Quantity not on file) Spine Implant Bilatera l: Back Care Teams Cook Apprentice Pastry Relationship Specialty Start Date End Date Elsewhere, Pcp PCP - General Family Medicine 03/09/17
--- OUTSIDE RECORDS SUMMARY | 2023-05-05 10:45 | XMS_ITS | Referral Summary ---
Author Name Unknown Organization [facility] Address [address] [place] [address] Care Team Providers Care Livestock Commission Agent Name Role Phone Elsewhere, Pcp Primary Care Provider Unavailabl e Source Comments Patient records contain information from all sites at [facility]. For routine questions regarding patient records, call [phone] during business hours, M-F 8:00 AM - 5:00 PM Central Time. Record requests for emergency care only can be directed to [phone] at any time.[facility] Encounters Date Type Department Care Team Description 04/13/2023 Clinical Communication Division of Rheumatology in [place], [place] [address] [place] [address] Sivan Garcia M.D., MDonald., C.M., M.P.H. from Last 3 Months Allergies Active Allergy Reactions Criticality Noted Date Comments Latex Other (see comments) 07/15/[address] guided epidural injection [place] Other (see comments),Itching High 11/23/2016 Strawberries Fresh Strawberries only Medications Medication Sig Dispensed Refills Start Date End Date Status Rx albuterol (RX PROVENTIL HFA,VENTOLIN HFA) 90 mcg/actuation inhaler Inhale 2 puffs 4 (four) times a day as needed. via minister tube; may also use every 4 hrs [...] How often do you attend chur or congregation services? More than 4 times per year 06/26/2022 Do you belong to any clubs o r organizations such as adventism groups, unions, fraternal or athletic groups, or [...] and heating? Not hard at all 06/26/2022 [facility] of Occupat ional Health - [...] Sex Assigned at Male 04/09/2018 9:30 PM VEHICLE WASHER Gender Identity Male 04/09/2018 9:30 PM VEHICLE WASHER Sexual Orientation Straight 04/09/2018 9: 30 PM VEHICLE WASHER Last Filed Vital Signs Vital Sign Reading [...] on file Medical Devices Implanted Type Area Associate Web Developer Device Identifier Shelf Expiration Date Model / Serial / Lot Ocular Lens-03/20/1997 Implanted:03/1997 (Quantity not on file) Ocular Lens Bilatera l: Eye Description:Both eyes Spine Implant-03/20/19 Implanted:03/2019 (Quantity not on file) Spine Implant Bilatera l: Back Care Teams Livestock Commission Agent Relationship Specialty Start Date End Date Elsewhere, Pcp PCP - General Family Medicine 03/09/17
--- OUTSIDE RECORDS SUMMARY | 2023-05-05 10:45 | XMS_ITS ---
Author Name Unknown Organization [facility] Address [address] [place] [address] Care Team Providers Care Donor Relations Associate Name Role Phone Unavailable Unavailable Unavailable Surgery Details Not on file Complications Check Surgery Details section. Procedure Estimated Blood Loss Check Surgery Details section. Procedure Findings Check Surgery Details section. Procedure Specimens Taken Check Surgery Details section.
--- OUTSIDE RECORDS SUMMARY | 2023-05-05 10:46 | XMS_ITS | Encounter Summary ---
Author Name Unknown Organization [facility] Address [address] [place] [address] Care Team Providers Care Armed Security Officer Name Role Phone Elsewhere, Pcp Primary Care Provider Unavailabl e Reason for Referral * Outpatient (Routine) - Closed Specialty Diagnoses / Procedures Referred By Contac t Referred To Contact Diagnoses Arthritis Inflammatory (HCC) Pain Foot Right Pain Low Back Chronic Pain Neck Procedures DX Hand Bilateral 3+ Views and Wrist Bilateral 3+ Views Sivan Garcia M.D., Lianna., C.M., M.P.H. [address] [place] [address] [facility] Referral ID Status Reason Start Date Expiration Date Visits Re quested Visits Authorized [id number] Closed 07/25/2022 07/25/2023 1 1 Reason for Visit * Outpatient (Routine) - Closed Specialty Diagnoses / Procedures Referred By Contac t Referred To Contact Diagnoses Arthritis Inflammatory (HCC) Pain Foot Right Pain Low Back Chronic Pain Neck Procedures DX Hand Bilateral 3+ Views and Wrist Bilateral 3+ Views Sivan Garcia M.D., Lianna., C.M., M.P.H. [address] [place] [address] [facility] Referral ID Status Reason Start Date Expiration Date Visits Re quested Visits Authorized [id number] Closed 07/25/2022 07/25/2023 1 1 Encounter Details Date Type Department Care Team (Latest Contact Info) Description 07/25/2022 3:51 PM CDT - 07/25/2022 3:58 PM CDT Hospital Encounter Department of Radiology, [facility], in [place], [place] [address] [place] [address] Sivan Garcia M.D., Lianna., CMarvelM., M.P.H. [address] [place] [address] Arthritis Inflammatory (HCC); Pain Foot Right; Pain [...] week 06/26/2022 How often do you attend [facility] or islam services? More than 4 times per year 06/26/2022 Do you belong to any clubs o r organizations such as yarsani groups, unions, fraternal or athletic groups, or [...] Not hard at all 06/26/2022 [facility] of Occupat ional [facility] - Occupational Stress Questionnaire Answer [...] place to sleep or slept in a care home (including now)? No 06/26/2022 Nutrition Answer [...] Assigned at Male 04/09/2018 9:30 PM MANAGER OF APPLICATION DEVELOPMENT Gender Identity Male 04/09/2018 9:30 PM MANAGER OF APPLICATION DEVELOPMENT Sexual Orientation Straight 04/09/2018 9: 30 PM MANAGER OF APPLICATION DEVELOPMENT documented as of this encounter Medications at [...] (four) times a day as needed. via alcoholism worker tube; may also use every 4 [...] Neck documented in this encounter Care Teams Armed Security Officer Relationship Specialty Start Date End Date Elsewhere, Pcp PCP - General Family Medicine 03/09/17 documented as of this encounter
--- OUTSIDE RECORDS SUMMARY | 2023-05-05 10:46 | XMS_ITS | Encounter Summary ---
Author Name Unknown Organization [facility] Address [address] [place] [address] Care Team Providers Care Medicaid Collection Specialist Name Role Phone Elsewhere, Pcp Primary Care Provider Unavailabl e Reason for Referral * MRI/CAT/PET Scan (Routine) - Closed Specialty Diagnoses / Procedures Referred By Contac t Referred To Contact Radiology Diagnoses Arthritis Inflammatory (HCC) Pain Foot Right Pain Low Back Chronic Pain Neck Procedures MR Foot Right without and with IV Contrast Sivan Garcia M.D., Lianna., C.M., M.P.H. [address] [place] [address] [facility] Referral ID Status Reason Start Date Expiration Date Visits Re quested Visits Authorized [id number] Closed 07/25/2022 07/25/2023 1 1 Reason for Visit * MRI/CAT/PET Scan (Routine) - Closed Specialty Diagnoses / Procedures Referred By Contac t Referred To Contact Radiology Diagnoses Arthritis Inflammatory (HCC) Pain Foot Right Pain Low Back Chronic Pain Neck Procedures MR Foot Right without and with IV Contrast Sivan Garcia M.D., Azael, C.M., M.P.H. [address] [place] [phone] [facility] Referral ID Status Reason Start Date Expiration Date Visits Re quested Visits Authorized [id number] Closed 07/25/2022 07/25/2023 1 1 Encounter Details Date Type Department Care Team (Latest Contact Info) Description 07/26/2022 2:45 PM CDT - 07/26/2022 11:59 PM CDT Hospital Encounter Department of Radiology, [facility], in [place], [place] [address] [place] [address] Sivan Garcia M.D., Lianna., CSherly., M.P.H. [address] [place] [address] Arthritis Inflammatory (HCC); Pain Foot Right; Pain [...] week 06/26/2022 How often do you attend [facility] or druze services? More than 4 times per year 06/26/2022 Do you belong to any clubs o r organizations such as mandaeism groups, unions, fraternal or athletic groups, or [...] and heating? Not hard at all 06/26/2022 [facility] of Occupat ional [facility] - Occupational Stress Questionnaire Answer Date [...] Sex Assigned at Male 04/09/2018 9:30 PM TAX ANALYST Gender Identity Male 04/09/2018 9:30 PM TAX ANALYST Sexual Orientation Straight 04/09/2018 9: 30 PM TAX ANALYST documented as of this encounter Medications at [...] (four) times a day as needed. via gluing pressman tube; may also use every 4 hrs [...] mL documented in this encounter Care Teams Medicaid Collection Specialist Relationship Specialty Start Date End Date Elsewhere, Pcp PCP - General Family Medicine 03/09/17 documented as of this encounter
--- OUTSIDE RECORDS SUMMARY | 2023-05-05 10:46 | XMS_ITS | Encounter Summary ---
Author Name Unknown Organization [facility] Address [address] [place] [address] Care Team Providers Care Yarn Twister Name Role Phone Elsewhere, Pcp Primary Care Provider Unavailabl e Reason for Referral * MRI/CAT/PET Scan (Routine) - Closed Specialty Diagnoses / Procedures Referred By Contac t Referred To Contact Radiology Diagnoses Arthritis Inflammatory (HCC) Pain Foot Right Pain Low Back Chronic Pain Neck Procedures MR Musculoskeletal Pelvis without and with IV Contrast Sivan Garcia M.D., Lianna., C.M., M.P.H. [address] [place] [address] [facility] Referral ID Status Reason Start Date Expiration Date Visits Re quested Visits Authorized [id number] Closed 07/25/2022 07/25/2023 1 1 Reason for Visit * MRI/CAT/PET Scan (Routine) - Closed Specialty Diagnoses / Procedures Referred By Contac t Referred To Contact Radiology Diagnoses Arthritis Inflammatory (HCC) Pain Foot Right Pain Low Back Chronic Pain Neck Procedures MR Musculoskeletal Pelvis without and with IV Contrast Sivan Garcia M.D., Azael, C.M., M.P.H. [address] [place] [phone] [facility] Referral ID Status Reason Start Date Expiration Date Visits Re quested Visits Authorized [id number] Closed 07/25/2022 07/25/2023 1 1 Encounter Details Date Type Department Care Team (Latest Contact Info) Description 08/30/2022 12:17 PM CDT - 08/30/2022 11:59 PM CDT Hospital Encounter Department of Radiology, [facility], in [place], [place] [address] [place] [address] Sivan Garcia M.D., Lianna., CSherly., M.P.H. [address] [place] [address] Arthritis Inflammatory (HCC); Pain Foot Right; Pain [...] 06/26/2022 How often do you attend [facility] or restorationism services? More than 4 times per year 06/26/2022 Do you belong to any clubs o r organizations such as samaritan groups, unions, fraternal or athletic groups, or [...] and heating? Not hard at all 06/26/2022 [facility] of Occupat ional [facility] [...] Sex Assigned at Male 04/09/2018 9:30 PM RUG CLEANER HAND Gender Identity Male 04/09/2018 9:30 PM RUG CLEANER HAND Sexual Orientation Straight 04/09/2018 9: 30 PM RUG CLEANER HAND documented as of this encounter Medications at [...] (four) times a day as needed. via manager secondary tube; may also use every 4 hrs [...] mL documented in this encounter Care Teams Yarn Twister Relationship Specialty Start Date End Date Elsewhere, Pcp PCP - General Family Medicine 03/09/17 documented as of this encounter
--- OUTSIDE RECORDS SUMMARY | 2023-05-05 10:46 | XMS_ITS | Encounter Summary ---
Author Name Unknown Organization [facility] Address [address] [place] [address] Care Team Providers Care Specialty Department Supervisor Name Role Phone Elsewhere, Pcp Primary Care Provider Unavailabl e Reason for Referral * Outpatient (Routine) - Closed Specialty Diagnoses / Procedures Referred By Contac t Referred To Contact Diagnoses Arthritis Inflammatory (HCC) Pain Foot Right Pain Low Back Chronic Pain Neck Procedures DX Hips and Pelvis Bilateral 5+ Views Sivan Garcia M.D., Lianna., C.M., M.P.H. [address] [place] [address] [facility] Referral ID Status Reason Start Date Expiration Date Visits Re quested Visits Authorized [id number] Closed 07/25/2022 07/25/2023 1 1 * Outpatient (Routine) - Closed Specialty Diagnoses / Procedures Referred By Contac t Referred To Contact Diagnoses Arthritis Inflammatory (HCC) Pain Foot Right Pain Low Back Chronic Pain Neck Procedures DX Foot Ankle Bilateral 3+ Views Sivan Garcia M.D., Lianna., C.M., M.P.H. [address] [place] [address] [facility] Referral ID Status Reason Start Date Expiration Date Visits Re quested Visits Authorized [id number] Closed 07/25/2022 07/25/2023 1 1 Reason for Visit * Outpatient (Routine) - Closed Specialty Diagnoses / Procedures Referred By Contanoop t Referred To Contact Diagnoses Arthritis Inflammatory (HCC) Pain Foot Right Pain Low Back Chronic Pain Neck Procedures DX Foot Ankle Bilateral 3+ Views Sivan Garcia M.D., Azael, Darron, M.P.H. [address] [place] [phone] [facility] Referral ID Status Reason Start Date Expiration Date Visits Re quested Visits Authorized [id number] Closed 07/25/2022 07/25/2023 1 1 Encounter Details Date Type Department Care Team (Latest Contact Info) Description 07/25/2022 3:59 PM CDT - 07/25/2022 11:59 PM CDT Hospital Encounter Department of Radiology, [facility], in [place], [place] [address] [place] [address] Sivan Garcia M.D., Lianna., C.Tr., M.P.H. [address] [place] [phone] Arthritis Inflammatory (HCC); Pain Foot Right; Pain [...] How often do you attend chur or anabaptism services? More than 4 times per year [...] and heating? Not hard at all 06/26/2022 [facility] of Occupat ional Health - Occupational Stress [...] Sex Assigned at Male 04/09/2018 9:30 PM ELECTRICAL POWER ENGINEER Gender Identity Male 04/09/2018 9:30 PM ELECTRICAL POWER ENGINEER Sexual Orientation Straight 04/09/2018 9: 30 PM ELECTRICAL POWER ENGINEER documented as of this encounter Medications at [...] (four) times a day as needed. via wool tamper tube; may also use every 4 hrs [...] Neck documented in this encounter Care Teams Specialty Department Supervisor Relationship Specialty Start Date End Date Elsewhere, Pcp PCP - General Family Medicine 03/09/17 documented as of this encounter
--- OUTSIDE RECORDS SUMMARY | 2023-05-05 10:46 | XMS_ITS | Encounter Summary ---
Author Name Unknown Organization [facility] Address [address] [place] [address] Care Team Providers Care Training Development Director Name Role Phone Elsewhere, Pcp Primary Care [...] often do you attend chur ch or mandaeism services? More than 4 times per year 06/26/2022 Do you belong to any clubs o r organizations such as gnosticism groups, unions, fraternal or athletic groups, or [...] Sex Assigned at Male 04/09/2018 9:30 PM BIG DATA DEVELOPER Gender Identity Male 04/09/2018 9:30 PM BIG DATA DEVELOPER Sexual Orientation Straight 04/09/2018 9: 30 PM BIG DATA DEVELOPER documented as of this encounter Plan of [...] on filedocumented in this encounter Care Teams Training Development Director Relationship Specialty Start Date End Date Elsewhere, Pcp PCP - General Family Medicine 03/09/17 documented as of this encounter
--- OUTSIDE RECORDS SUMMARY | 2023-05-05 10:46 | XMS_ITS | Encounter Summary ---
Author Name Unknown Organization [facility] Address [address] [place] [address] Care Team Providers Care Crop Specialist Name Role Phone Elsewhere, Pcp Primary Care Provider Unavailabl e Reason for Referral * Outpatient (Routine) - Closed Specialty Diagnoses / Procedures Referred By Contac t Referred To Contact Diagnoses Arthritis Inflammatory (HCC) Pain Foot Right Pain Low Back Chronic Pain Neck Procedures DX Entire Spine Anterior Posterior and Lateral 2 Views Sivan Garcia M.D., Azael, C.M., M.P.H. [address] [place] [address] [facility] Referral ID Status Reason Start Date Expiration Date Visits Re quested Visits Authorized [id number] Closed 07/25/2022 07/25/2023 1 1 Reason for Visit * Outpatient (Routine) - Closed Specialty Diagnoses / Procedures Referred By Contac t Referred To Contact Diagnoses Arthritis Inflammatory (HCC) Pain Foot Right Pain Low Back Chronic Pain Neck Procedures DX Entire Spine Anterior Posterior and Lateral 2 Views Sivan Garcia M.D., Lianna., C.M., M.P.H. [address] [place] [address] [facility] Referral ID Status Reason Start Date Expiration Date Visits Re quested Visits Authorized [id number] Closed 07/25/2022 07/25/2023 1 1 Encounter Details Date Type Department Care Team (Latest Contact Info) Description 07/26/2022 1:29 PM CDT - 07/26/2022 2:44 PM CDT Hospital Encounter Department of Radiology, [facility], in [place], [place] [address] [place] [address] Sivan Garcia M.D., Lianna., C.M., M.P.H. [address] [place] [address] Arthritis Inflammatory (HCC); Pain Foot Right; Pain [...] any clubs o r organizations such as uatsdin groups, unions, fraternal or athletic groups, or [...] and heating? Not hard at all 06/26/2022 [facility] of Occupat ional Health - Occupational Stress [...] place to sleep or slept in a detention (including now)? No 06/26/2022 Nutrition Answer Date [...] Sex Assigned at Male 04/09/2018 9:30 PM REPAIRER SHOE STICKS Gender Identity Male 04/09/2018 9:30 PM REPAIRER SHOE STICKS Sexual Orientation Straight 04/09/2018 9: 30 PM REPAIRER SHOE STICKS documented as of this encounter Medications at [...] (four) times a day as needed. via building architectural designer tube; may also use every 4 hrs [...] of the C5, C6, L1, L2, and [id number]. Posterior decompression with micki and pedicle screw [...] Neck documented in this encounter Care Teams Crop Specialist Relationship Specialty Start Date End Date Elsewhere, Pcp PCP - General Family Medicine 03/09/17 documented as of this encounter
--- OUTSIDE RECORDS SUMMARY | 2023-05-05 10:46 | XMS_ITS | Encounter Summary ---
Author Name Unknown Organization [facility] Address [address] [place] [address] Care Team Providers Care Intensive Care Medicine Specialist Name Role Phone Elsewhere, Pcp Primary Care Provider Unavailabl e Reason for Visit * Reason Comments Pain * Appointment Request (Routine) - Closed Specialty Diagnoses / Procedures Referred By Contac t Referred To Contact Orthopedic Surgery Diagnoses Subluxation Sternoclavicular Closed Initial Referral ID Status Reason Start Date Expiration Date Visits Re quested Visits Authorized [id number] Closed 06/23/2022 06/23/2023 1 1 Encounter Details Date Type Department Care Team (Latest Contact Info) Description 09/23/2022 11:00 AM CDT Comprehensive Visit Department of Orthopedic Surgery in [place], [place] [address] [place] [address] José Wright M.D., Ph.D. [address] [place] [address] Pain Shoulder Right (Primary Dx) Social History [...] How often do you attend chur or hindu services? More than 4 times per year 06/26/2022 Do you belong to any clubs o r organizations such as christian groups, unions, fraternal or athletic groups, or [...] and heating? Not hard at all 06/26/2022 [facility] of Occupat ional Health - Occupational Stress [...] Sex Assigned at Male 04/09/2018 9:30 PM RESOURCE MANAGER Gender Identity Male 04/09/2018 9:30 PM RESOURCE MANAGER Sexual Orientation Straight 04/09/2018 9: 30 PM RESOURCE MANAGER documented as of this encounter Progress Notes [...] Primary documented in this encounter Care Teams Intensive Care Medicine Specialist Relationship Specialty Start Date End Date Elsewhere, Pcp PCP - General Family Medicine 03/09/17 documented as of this encounter
--- OUTSIDE RECORDS SUMMARY | 2023-05-05 10:46 | XMS_ITS | Encounter Summary ---
Author Name Unknown Organization [facility] Address [address] [place] [address] Care Team Providers Care Director Of Collections Name Role Phone Elsewhere, Pcp Primary Care Provider Unavailabl e Reason for Referral * Outpatient (Routine) - Closed Specialty Diagnoses / Procedures Referred By Contac t Referred To Contact Diagnoses Arthritis Inflammatory (HCC) Pain Foot Right Pain Low Back Chronic Pain Neck Procedures US Musculoskeletal Hand Right Sivan Garcia M.D., Lianna., C.M., M.P.H. [address] [place] [address] [facility] Referral ID Status Reason Start Date Expiration Date Visits Re quested Visits Authorized [id number] Closed 07/25/2022 07/25/2023 1 1 Reason for Visit * Outpatient (Routine) - Closed Specialty Diagnoses / Procedures Referred By Contac t Referred To Contact Diagnoses Arthritis Inflammatory (HCC) Pain Foot Right Pain Low Back Chronic Pain Neck Procedures US Musculoskeletal Hand Right Sivan Garcia M.D., Lianna., C.M., M.P.H. [address] [place] [phone] [facility] Referral ID Status Reason Start Date Expiration Date Visits Re quested Visits Authorized [id number] Closed 07/25/2022 07/25/2023 1 1 Encounter Details Date Type Department Care Team (Latest Contact Info) Description 08/30/2022 10:51 AM CDT - 08/30/2022 12:16 PM CDT Hospital Encounter Department of Radiology, [facility], in [place], [place] [address] [place] [address] Sivan Garcia M.D., Lianna., C.M., M.P.H. [address] [place] [address] Arthritis Inflammatory (HCC); Pain Foot Right; Pain [...] How often do you attend chur or muslim services? More than 4 times [...] and heating? Not hard at all 06/26/2022 [facility] of Occupat ional Health - [...] place to sleep or slept in a chcf (including now)? No 06/26/2022 Nutrition Answer Date [...] Sex Assigned at Male 04/09/2018 9:30 PM DREDGE PUMP OPERATOR Gender Identity Male 04/09/2018 9:30 PM DREDGE PUMP OPERATOR Sexual Orientation Straight 04/09/2018 9: 30 PM DREDGE PUMP OPERATOR documented as of this encounter Medications at [...] (four) times a day as needed. via diploma medical assistant tube; may also use every 4 [...] Neck documented in this encounter Care Teams Director Of Collections Relationship Specialty Start Date End Date Elsewhere, Pcp PCP - General Family Medicine 03/09/17 documented as of this encounter
--- OUTSIDE RECORDS SUMMARY | 2023-05-05 10:46 | XMS_ITS | Encounter Summary ---
Author Name Unknown Organization [facility] Address [address] [place] [address] Care Team Providers Care Materials Research Engineer Name Role Phone Elsewhere, Pcp Primary Care Provider Unavailabl e Reason for Referral * MRI/CAT/PET Scan (Routine) - Closed Specialty Diagnoses / Procedures Referred By Contac t Referred To Contact Radiology Diagnoses Pain Shoulder Right Procedures CT Sternoclavicular Joint Bilateral without IV Contrast Trupti Aguayo P.A.-C., M.S. [address] [place] [phone] [facility] Referral ID Status Reason Start Date Expiration Date Visits Re quested Visits Authorized [id number] Closed 07/05/2022 07/05/2023 1 1 Reason for Visit * MRI/CAT/PET Scan (Routine) - Closed Specialty Diagnoses / Procedures Referred By Contac t Referred To Contact Radiology Diagnoses Pain Shoulder Right Procedures CT Sternoclavicular Joint Bilateral without IV Contrast Trupti Aguayo P.A.-C., M.S. [address] [place] [phone] [facility] Referral ID Status Reason Start Date Expiration Date Visits Re quested Visits Authorized [id number] Closed 07/05/2022 07/05/2023 1 1 Encounter Details Date Type Department Care Team (Latest Contact Info) Description 09/23/2022 7:29 AM CDT - 09/23/2022 11:59 PM CDT Hospital Encounter Department of Radiology, [facility], in [place], [place] [address] [place] [address] Trupti Aguayo P.A.-C., M.S. [address] [place] [address] Pain Shoulder Right Discharge Disposition: Home or [...] often do you attend chur ch or hindu services? More than 4 times per year 06/26/2022 Do you belong to any clubs o r organizations such as druze groups, unions, fraternal or athletic groups, or [...] and heating? Not hard at all 06/26/2022 [facility] of Occupat ional Health - Occupational [...] Sex Assigned at Male 04/09/2018 9:30 PM CHIEF RECORDIST Gender Identity Male 04/09/2018 9:30 PM CHIEF RECORDIST Sexual Orientation Straight 04/09/2018 9: 30 PM CHIEF RECORDIST documented as of this encounter Medications at [...] (four) times a day as needed. via turning machine operator helper tube; may also use every 4 hrs [...] 08/15/2017. Trupti Aguayo P.A.-C., M.S. IMG CT [place] OCEDURES documented in this encounter Visit Diagnoses Diagnosis Pain Shoulder Right documented in this encounter Care Teams Materials Research Engineer Relationship Specialty Start Date End Date Elsewhere, Pcp PCP - General Family Medicine 03/09/17 documented as of this encounter
--- OUTSIDE RECORDS SUMMARY | 2023-05-05 10:46 | XMS_ITS | Encounter Summary ---
Author Name Unknown Organization [facility] Address [address] [place] [address] Care Team Providers Care Environmental Scientists Name Role Phone Elsewhere, Pcp Primary Care Provider Unavailabl e Reason for Visit * Outpatient (Routine) - Closed Specialty Diagnoses / Procedures Referred By Contac t Referred To Contact Rheumatology Diagnoses Arthritis Inflammatory (HCC) Pain Foot Right Pain Low Back Chronic Pain Neck Sivan Garcia M.D., Lianna., CMarvelM., M.P.H. [address] [place] [phone] [facility] Referral ID Status Reason Start Date Expiration Date Visits Re quested Visits Authorized [id number] Closed 07/25/2022 07/24/2025 1 1 Encounter Details Date Type Department Care Team (Latest Contact Info) Description 09/26/2022 9:00 AM CDT Office Visit Division of Rheumatology in [place], [place] [address] [place] [phone] Sivan Garcia M.D., Lianna., C.M., M.P.H. [address] [place] [phone] Arthritis Inflammatory (HCC) (Primary Dx); Pain Foot [...] week 06/26/2022 How often do you attend [facility] or rastafarian services? More than 4 times per year [...] and heating? Not hard at all 06/26/2022 [facility] [place] of Occupat ional Health - Occupational Stress [...] Sex Assigned at Male 04/09/2018 9:30 PM SAMPLE SAWYER Gender Identity Male 04/09/2018 9:30 PM SAMPLE SAWYER Sexual Orientation Straight 04/09/2018 9: 30 PM SAMPLE SAWYER documented as of this encounter Progress Notes [...] constipating. I would aim for at least 3124-0937 mg of calcium daily. Vitamin D3 should [...] M.D., C.M., M.P.H. CT CT Job ID: [id number] documented in this encounter Plan of Treatment [...] M.D., M.D., CSherly., M.P.H. LAB BLOOD ADD-ON [facility] 200 [place] [address], [facility] 200 [place] [address] * (ABNORMAL) CRP (C-Reactive Protein) (09/26/2022 10:07 AM CDT) C-Reactive Protein (CRP), S 6.2(H) <5.0 mg/L 09/26/2022 12:13 PM CDT DT Blood (Blood, Venous) 09/26/2022 10:07 AM CDT 09/26/2022 11:29 AM CDT Sivan Garcia M.D., M.D., CMarvelM., M.P.H. LAB BLOOD ADD-ON [facility] 200 [place] [address], [facility] 200 [place] [address] * (ABNORMAL) BUN (Blood Urea Nitrogen) (09/26/2022 10:07 AM CDT) BUN (Blood Urea Nitrogen), S 35(H) 8 - 24 mg/dL 09/26/2022 12:56 PM CDT DTL Blood (Blood, Venous) 09/26/2022 10:07 AM CDT 09/26/2022 11:29 AM CDT Sivan Garcia M.D., M.D., C.M., M.P.H. LAB BLOOD ADD-ON Performing Organization Address [facility] Co de Phone Number [facility] 200 [place] [address], [facility] 200 [place] [address] * (ABNORMAL) Creatinine with Estimated GFR (09/26/2022 [...] M.P.H. LAB BLOOD ADD-ON Performing Organization Address [facility] Co de Phone Number [facility] 200 [place] [address], [facility] 200 [place] [address] * (ABNORMAL) CBC with Differential, Blood (09/26/2022 [...] M.D., M.D., C.M., M.P.H. LAB BLOOD ADD-ON [facility] - [address] [address], [facility] [address] documented in this encounter Visit Diagnoses Diagnosis Arthritis Inflammatory (HCC)- Primary Pain Foot Right Pain Low Back Chronic Pain Neck documented in this encounter Care Teams Environmental Scientists Relationship Specialty Start Date End Date Elsewhere, Pcp PCP - General Family Medicine 03/09/17 documented as of this encounter
--- OUTSIDE RECORDS SUMMARY | 2023-05-05 10:46 | XMS_ITS | Encounter Summary ---
Author Name Unknown Organization [facility] Address [address] [place] [address] Care Team Providers Care Pipe Covering Molder Name Role Phone Elsewhere, Pcp Primary Care Provider Unavailabl e Reason for Visit * Reason Onset Date Comments Pre-visit Intake 09/22/2022 Encounter Details Date Type Department Care Team (Latest Contact Info) Description 09/22/2022 11:45 AM CDT Clinical Communication Virtual Review in [place], [place] [address] [place], [place] [phone] Pre-visit Intake Social History Tobacco Use Types [...] often do you attend chur ch or caodaism services? More than 4 times per year 06/26/2022 Do you belong to any clubs o r organizations such as amish groups, unions, fraternal or athletic groups, or [...] and heating? 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
--- OUTSIDE RECORDS SUMMARY | 2023-05-05 10:46 | XMS_ITS | Encounter Summary ---
Author Name Unknown Organization [facility] Address [address] [place] [address] Care Team Providers Care Senior Sas Programmer Name Role Phone Elsewhere, Pcp Primary Care Provider Unavailabl e Reason for Visit * Outpatient (Routine) - Closed Specialty Diagnoses / Procedures Referred By Contac t Referred To Contact Diagnoses Arthritis Inflammatory (HCC) Pain Foot Right Pain Low Back Chronic Pain Neck Procedures RHU US-Guided Aspiration/Injection - Large Joint Sivan Garcia M.D., Lianna., CMarvelM., M.P.H. [address] [place] [phone] [facility] Referral ID Status Reason Start Date Expiration Date Visits Re quested Visits Authorized [id number] Closed 07/25/2022 07/25/2023 1 1 Encounter Details Date Type Department Care Team (Latest Contact Info) Description 07/26/2022 2:30 PM CDT Procedure visit Division of Rheumatology in [place], [place] [address] [place] [phone] Sivan Garcia M.D., Lianna., C.M., M.P.H. [address] [place] [phone] Cirilo Dickerson III, M.D. [address] [place] [phone] Arthritis Inflammatory (HCC); Pain Foot Right; [...] week 06/26/2022 How often do you attend [facility] or methodist services? More than 4 times per year 06/26/2022 Do you belong to any clubs o r organizations such as mormonism groups, unions, fraternal or athletic groups, or [...] heating? Not hard at all 06/26/2022 [facility] of Occupat ional Health - Occupational Stress [...] place to sleep or slept in a snf (including now)? 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 Its performance characteristics were determined by [facility] in a manner consistent with CLIA [...] 07/27/2022 7:59 AM CDT DHPM Reviewed by: [employer] 07/27/2022 7:59 AM CDT DHPM Fluid (Synovial Fluid, Right Knee) 07/26/2022 2:34 PM CDT 07/26/2022 3:34 PM CDT Sivan Garcia M.D., M.D., CMarvelM., M.P.H. LAB BODY FLUIDS AND STOOLS ORDERABLES Performing Organization Address [facility] de Phone Number [facility] [address] [place], [place] [phone] [place] [address] 200 [place] [address] * Crystal Identification, Body Fluid (07/26/2022 2:34 PM CDT) Fluid Type Synovial Fluid, Right Knee 07/26/2022 7:26 PM CDT PM Crystal ID None seen None seen 07/26/2022 7:26 PM CDT [facility] Fluid (Synovial Fluid, Right Knee) 07/26/2022 2:34 PM CDT 07/26/2022 3:34 PM CDT Sivan Garcia M.D., M.D., CSherly., M.P.H. LAB BODY FLUIDS AND STOOLS ORDERABLES Performing Organization Address [facility] Co de Phone Number [facility] 200 [place], [place] [phone] [place] [address] 200 [place] [address] * Lyme Disease PCR (07/26/2022 2:34 PM CDT) Specimen Source right knee 3:48 PM CDT DTL B. burgdorferi PCR Negative Negative 2022 3:48 PM CDT DTL B. mayonii PCR Negative Negative 07/28/2022 3:48 PM CDT DTL B. garinii/B. afzelii PCR Negative Negative 07/28/2022 3:48 PM CDT DTL Comment: ----ADDITIONAL INFORMATION---- This test was developed and its performance characteristics determined by [facility] in a manner consistent with CLIA requirements. This test has not been cleared or approved by the U.S. Food and Drug Administration. Fluid (Synovial Fluid, Right Knee) 07/26/2022 2:34 PM CDT 07/26/2022 5:31 PM CDT Sivan Garcia M.D., M.D., C.M., M.P.H. LAB MICROBIOLOGY - GENERAL ORDERABLES [facility] [address] [place] [address], [facility] [address] [place] [address] * [place] ARTHCS ASP/INJ MJR JT W US (07/26/2022 [...] Neck documented in this encounter Care Teams Senior Sas Programmer Relationship Specialty Start Date End Date Elsewhere, Pcp PCP - General Family Medicine 03/09/17 documented as of this encounter
--- OUTSIDE RECORDS SUMMARY | 2023-05-05 10:47 | XMS_ITS | Encounter Summary ---
Author Name Unknown Organization [facility] Address [address] [place] [address] Care Team Providers Care Cream Gatherer Name Role Phone Elsewhere, Pcp Primary Care Provider Unavailabl e Reason for Visit * Reason Onset Date Comments Pre-visit Intake 07/22/2022 Encounter Details Date Type Department Care Team (Latest Contact Info) Description 07/22/2022 7:15 AM CDT Clinical Communication Virtual Review in [place], [place] [address] [place], [place] [phone] Pre-visit Intake Social History Tobacco Use Types [...] often do you attend chur ch or adventist services? More than 4 times per year [...] Sex Assigned at Male 04/09/2018 9:30 PM INTENSIVIST Gender Identity Male 04/09/2018 9:30 PM INTENSIVIST Sexual Orientation Straight 04/09/2018 9: 30 PM INTENSIVIST documented as of this encounter Plan of Treatment Not on file documented as of this encounter Visit Diagnoses Not on filedocumented in this encounter Care Teams Cream Gatherer Relationship Specialty Start Date End Date Elsewhere, Pcp PCP - General Family Medicine 03/09/17 documented as of this encounter
--- OUTSIDE RECORDS SUMMARY | 2023-05-05 10:47 | XMS_ITS | Encounter Summary ---
Author Name Unknown Organization [facility] Address [address] [place] [address] Care Team Providers Care Funeral Workers Name Role Phone Elsewhere, Pcp Primary Care Provider Unavailabl e Reason for Referral * Outpatient (Routine) - Closed Specialty Diagnoses / Procedures Referred By Contac t Referred To Contact Pulmonary Medicine David Reynoso M.D. 200 [place] [phone] [facility] Referral ID Status Reason Start Date Expiration Date Visits Re quested Visits Authorized [id number] Closed 06/28/2022 06/27/2025 1 1 * Outpatient (Routine) - Closed Specialty Diagnoses / Procedures Referred By Contac t Referred To Contact Diagnoses Diaphragm Disorder Procedures DX Chest AP or PA and Lateral 2 Views David Reynoso M.D. 200 [place] [phone] [facility] Referral ID Status Reason Start Date Expiration Date Visits Re quested Visits Authorized [id number] Closed 06/28/2022 06/28/2023 1 1 Reason for Visit * Outpatient (Routine) - Closed Specialty Diagnoses / Procedures Referred By Contac t Referred To Contact Pulmonary Medicine Diagnoses Diaphragm Disorder Jordan Ha M.D. [address] [phone] [facility] Referral ID Status Reason Start Date Expiration Date Visits Re quested Visits Authorized [id number] Closed 06/23/2022 06/23/2023 1 1 Encounter Details Date Type Department Care Team (Latest Contact Info) Description 06/28/2022 9:00 AM CDT Comprehensive Visit Division of Pulmonary Medicine in [place], [place] [address] [place] [phone] David Reynoso M.D. [address] [place] [phone] Diaphragm Disorder Social History Tobacco Use Types [...] How often do you attend chur or caodaism services? More than 4 times per year 06/26/2022 Do you belong to any clubs o r organizations such as sikh groups, unions, fraternal or athletic groups, or [...] and heating? Not hard at all 06/26/2022 [facility] [place] of Occupat ional Health - Occupational Stress [...] Sex Assigned at Male 04/09/2018 9:30 PM SANITARY PLUMBER Gender Identity Male 04/09/2018 9:30 PM SANITARY PLUMBER Sexual Orientation Straight 04/09/2018 9: 30 PM SANITARY PLUMBER documented as of this encounter Last Filed [...] David Reynoso M.D. CT CT Job ID: [id number] documented in this encounter Plan of Treatment [...] PM CDT [facility] [id number]% 1.69 L/s 06/28/2022 3:12 PM CDT [facility] [...] Disorder documented in this encounter Care Teams Funeral Workers Relationship Specialty Start Date End Date Elsewhere, Pcp PCP - General Family Medicine 03/09/17 documented as of this encounter
--- OUTSIDE RECORDS SUMMARY | 2023-05-05 10:47 | XMS_ITS | Encounter Summary ---
Author Name Unknown Organization [facility] Address [address] [place] [address] Care Team Providers Care Lode Miner Blasting Name Role Phone Elsewhere, Pcp Primary Care Provider Unavailabl e Reason for Referral * MRI/CAT/PET Scan (Routine) - Closed Specialty Diagnoses / Procedures Referred By Contac t Referred To Contact Radiology Diagnoses Arthritis Inflammatory (HCC) Pain Foot Right Pain Low Back Chronic Pain Neck Procedures MR Musculoskeletal Pelvis without and with IV Contrast Sivan Garcia M.D., Lianna., C.M., M.P.H. [address] [place] [address] [facility] Referral ID Status Reason Start Date Expiration Date Visits Re quested Visits Authorized [id number] Closed 07/25/2022 07/25/2023 1 1 * Outpatient (Routine) - Closed Specialty Diagnoses / Procedures Referred By Contac t Referred To Contact Diagnoses Arthritis Inflammatory (HCC) Pain Foot Right Pain Low Back Chronic Pain Neck Procedures RHU US-Guided Aspiration/Injection - Large Joint Sivan Garcia M.D., Lianna., C.M., M.P.H. [address] [place] [address] [facility] Referral ID Status Reason Start Date Expiration Date Visits Re quested Visits Authorized [id number] Closed 07/25/2022 07/25/2023 1 1 * MRI/CAT/PET Scan (Routine) - Closed Specialty Diagnoses / Procedures Referred By Contac t Referred To Contact Radiology Diagnoses Arthritis Inflammatory (HCC) Pain Foot Right Pain Low Back Chronic Pain Neck Procedures MR Foot Right without and with IV Contrast Sivan Garcia M.D., Azael, CItalo, M.P.H. [address] [place] [address] [facility] Referral ID Status Reason Start Date Expiration Date Visits Re quested Visits Authorized [id number] Closed 07/25/2022 07/25/2023 1 1 * Outpatient (Routine) - Closed Specialty Diagnoses / Procedures Referred By Contac t Referred To Contact Diagnoses Arthritis Inflammatory (HCC) Pain Foot Right Pain Low Back Chronic Pain Neck Procedures DX Hips and Pelvis Bilateral 5+ Views Sivan Garcia M.D., Azael, C.M., M.P.H. [address] [place] [address] [facility] Referral ID Status Reason Start Date Expiration Date Visits Re quested Visits Authorized [id number] Closed 07/25/2022 07/25/2023 1 1 * Outpatient (Routine) - Closed Specialty Diagnoses / Procedures Referred By Contac t Referred To Contact Diagnoses Arthritis Inflammatory (HCC) Pain Foot Right Pain Low Back Chronic Pain Neck Procedures DX Entire Spine Anterior Posterior and Lateral 2 Views Sivan Garcia M.D., Azael, C.M., M.P.H. [address] [place] [phone] [facility] Referral ID Status Reason Start Date Expiration Date Visits Re quested Visits Authorized [id number] Closed 07/25/2022 07/25/2023 1 1 * Outpatient (Routine) - Closed Specialty Diagnoses / Procedures Referred By Contac t Referred To Contact Diagnoses Arthritis Inflammatory (HCC) Pain Foot Right Pain Low Back Chronic Pain Neck Procedures DX Foot Ankle Bilateral 3+ Views Sivan Garcia M.D., Azael, CSherly., M.P.H. [address] [place] [phone] [facility] Referral ID Status Reason Start Date Expiration Date Visits Re quested Visits Authorized [id number] Closed 07/25/2022 07/25/2023 1 1 * Outpatient (Routine) - Closed Specialty Diagnoses / Procedures Referred By Contac t Referred To Contact Diagnoses Arthritis Inflammatory (HCC) Pain Foot Right Pain Low Back Chronic Pain Neck Procedures DX Hand Bilateral 3+ Views and Wrist Bilateral 3+ Views Sivan Garcia M.D., Lianna., C.Tr., M.P.H. [address] [place] [phone] [facility] Referral ID Status Reason Start Date Expiration Date Visits Re quested Visits Authorized [id number] Closed 07/25/2022 07/25/2023 1 1 * Outpatient (Routine) - Closed Specialty Diagnoses / Procedures Referred By Contac t Referred To Contact Diagnoses Arthritis Inflammatory (HCC) Pain Foot Right Pain Low Back Chronic Pain Neck Procedures US Musculoskeletal Hand Right Sivan Garcia M.D., Azael, Darron, M.P.H. [address] [place] [phone] [facility] Referral ID Status Reason Start Date Expiration Date Visits Re quested Visits Authorized [id number] Closed 07/25/2022 07/25/2023 1 1 * Outpatient (Routine) - Closed Specialty Diagnoses / Procedures Referred By Britany barrios Referred To Contact Rheumatology Diagnoses Arthritis Inflammatory (HCC) Pain Foot Right Pain Low Back Chronic Pain Neck Sivan Garcia M.D., Azael, CSherly., M.P.H. [address] [place] [address] [facility] Referral ID Status Reason Start Date Expiration Date Visits Re quested Visits Authorized [id number] Closed 07/25/2022 07/24/2025 1 1 Scheduling Instructions Labs today; imaging studies next available-bunch if can Reason for Visit * Outpatient (Routine) - Closed Specialty Diagnoses / Procedures Referred By Britany barrios Referred To Contact Rheumatology Diagnoses Rheumatoid Arthritis Without Rheumatoid Factor Unspecified Site ([facility] Jordan Ha M.D. [address] [place] [address] [facility] Referral ID Status Reason Start Date Expiration Date Visits Re quested Visits Authorized [id number] Closed 06/23/2022 06/23/2023 1 1 Encounter Details Date Type Department Care Team (Latest Contact Info) Description 07/25/2022 1:00 PM CDT Comprehensive Visit Division of Rheumatology in [place], [place] [address] [place] [address] Sivan Garcia M.D., Lianna., CSherly., M.P.H. [address] [place] [address] Arthritis Inflammatory (HCC) (Primary Dx); Pain Foot [...] How often do you attend chur or yazidism services? More than 4 times per year 06/26/2022 Do you belong to any clubs o r organizations such as confucianism groups, unions, fraternal or athletic groups, or [...] place to sleep or slept in a skilled nursing (including now)? No 06/26/2022 Nutrition Answer Date [...] Sex Assigned at Male 04/09/2018 9:30 PM DIE ATTACHING MACHINE TENDER Gender Identity Male 04/09/2018 9:30 PM DIE ATTACHING MACHINE TENDER Sexual Orientation Straight 04/09/2018 9: 30 PM DIE ATTACHING MACHINE TENDER documented as of this encounter Last Filed [...] encounter Consult Notes * Sivan Garcia M.D., zAael, Darron, M.P.H. 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 ALLERGIES/CONTRAINDICATIONS Allergies Allergen Reactions [place] Other (see comments) and Itching Strawberries Fresh [...] M.D., Brenda., M.P.H. CT CT Job ID: [id number] documented in this encounter Plan of Treatment [...] developed and its performance characteristics determined by [facility] in a manner consistent with CLIA requirements. This test has not been cleared or approved by the U.S. Food and Drug Administration. Fluid (Synovial Fluid, Right Knee) 07/26/2022 2:34 PM CDT 07/26/2022 5:31 PM CDT Sivan Garcia M.D., M.D., C.M., M.P.H. LAB MICROBIOLOGY - GENERAL ORDERABLES [facility] [address] [place] [address], [facility] DT [address] [place] [address] * Crystal Identification, Body Fluid (07/26/2022 2:34 PM CDT) Fluid Type Synovial Fluid, Right Knee 07/26/2022 7:26 PM CDT [facility] Crystal ID None seen None seen 07/26/2022 7:26 PM CDT [facility] Fluid (Synovial Fluid, Right Knee) 07/26/2022 2:34 PM CDT 07/26/2022 3:34 PM CDT Sivan Garcia M.D., Lianna., C.M., M.P.H. LAB BODY FLUIDS AND STOOLS ORDERABLES [facility] [address] [place] [address], [facility] [address] [place] [address] * Cell Count and Differential, Body Fluid [...] This test has been modified from the drill sharpener's instructions. Its performance characteristics were determined by [facility] in a manner consistent with CLIA requirements. [...] Reviewed by: Suzette 07/27/2022 7:59 AM CDT [facility] Fluid (Synovial Fluid, Right Knee) 07/26/2022 2:34 PM CDT 07/26/2022 3:34 PM CDT Sivan Garcia M.D., Lianna., C.M., M.P.H. LAB BODY FLUIDS AND STOOLS ORDERABLES [facility] [address] [place] [address], [facility] [address] [place] [address] * AK ARTHCS ASP/INJ MJR JT W US (07/26/2022 [...] of the C5, C6, L1, L2, and V6tsveislkuxb. Posterior decompression with micki and pedicle screw [...] M.P.H. LAB URINE ORDERABLES Performing Organization Address [facility] Co de Phone Number [facility] [address] [place] [address] * HLA B27 Associated Antigen Screening (07/25/2022 5:54 PM CDT) [facility] HLA-B27 Result Negative Not Applicable 07/26/2022 3:22 PM CDT [facility] HLA-B27 Interpretation see below 07/26/2022 3:22 PM CDT [facility] Comment: HLA-B27 antigen was not detected. ----ADDITIONAL INFORMATION---- Method: Flow Cytometry CLIA: [id number] ??CLIA Prior Authorization Nurse: TRICIA LEONE MD,PhD Blood (Blood, Venous) 07/25/2022 5:54 PM CDT 07/26/2022 7:49 AM CDT Sivan Garcia M.D., M.D., CSherly., M.P.H. LAB BLOOD NON ADD-ON Performing Organization Address [facility] Co de Phone Number [facility] [address]BB[address] [place] [address] * SeroNeg RAdx3 Profile-Sent Out Lab (07/25/2022 5:54 PM CDT) [facility] 14.3.3 ETA, Rheum. Arthritis <0.20 <0.20 ng/mL [...] 14-3-3 eta protein is a joint-derived ??pro-inflammatory consulting manager that is implicated in the ??joint erosion [...] Sravani HARRISON et al.J Rheumatol 2015;42(9): ?? 5586-6457. 2. Sravani HARRISON et al. J Rheumatol 2014;41(11):1-10. 3. Amber N, et al. Arthritis Res Ther 2016;18:37. 4. Angeles A et al. Arthritis Rheum 2011;63(3):654-661. 5. El-Rizwana HS et al. Arthritis Res Ther 2004;86(6) Blood (Blood, Venous) 07/25/2022 5:54 PM CDT 07/26/2022 8:12 AM CDT Sivan Garcia M.D., M.D., C.M., M.P.H. LAB BLOOD NON ADD-ON [facility] [address] [place] [address], [facility] ENDI [facility] [address] [place] [address] * 25-Hydroxyvitamin D2 and D3 (07/25/2022 5:54 PM CDT) Pathologist [facility] 25-Hydroxy D2 <4.0 ng/mL 07/26/2022 11:35 PM CDT [facility] 25-Hydroxy D3 38 ng/mL 07/26/2022 11:35 PM CDT [facility] 25-Hydroxy D Total 38 ng/mL 2022 11:35 PM CDT [facility] Comment: ----REFERENCE VALUE---- 25-HYDROXY D TOTAL (D2+D3) Optimum levels in the healthy population are 20-50, patients with bone disease may benefit from higher levels within this range. ----ADDITIONAL INFORMATION---- This test was developed and its performance characteristics determined by [facility] in a manner consistent with CLIA requirements. This test has not been cleared or approved by the U.S. Food and Drug Administration. Blood (Blood, Venous) 07/25/2022 5:54 PM CDT 07/26/2022 7:04 AM CDT Sivan Garcia M.D., Azael, C.M., M.P.H. LAB BLOOD ADD-ON Performing Organization Address [facility] Co de Phone Number [facility] [address] [place] [address] [facility] [address] [place] [address] [place] [address] * Methylmalonic Acid (MMA), Quantitative (07/25/2022 5:54 PM CDT) [facility] Signature Methylmalonic Acid, QN, S 0.24 <=0.40 nmol/mL 07/27/2022 8:56 AM CDT DTL Comment: ----ADDITIONAL INFORMATION---- This test was developed and its performance characteristics determined by [facility] in a manner consistent with CLIA requirements. This test has not been cleared or approved by the U.S. Food and Drug Administration. Blood (Blood, Venous) 07/25/2022 5:54 PM CDT 07/26/2022 10:34 AM CDT Sivan Garcia M.D., M.D., C.M., M.P.H. LAB BLOOD ADD-ON Performing Organization Address [facility] [place] [address], [facility] DTL [address] [address] * Aldolase (07/25/2022 5:54 PM CDT) Pathologist [facility] Aldolase, S 6.8 <7.7 U/L 07/26/2022 8: 50 AM CDT DT Blood (Blood, Venous) 07/25/2022 5:54 PM CDT 07/26/2022 7:13 AM CDT Sivan Garcia M.D., Lianna., C.M., M.P.H. LAB BLOOD NON ADD-ON [facility] [address] [place], [place] [phone] [place] [address] * Sedimentation Rate (07/25/2022 5:53 PM CDT) [facility] Sedimentation Rate, B 2 3 - 28 mm/h 07/25/2022 8:02 PM CDT DT Blood (Blood, Venous) 07/25/2022 5:53 PM CDT 07/25/2022 6:03 PM CDT Sivan Garcia M.D., Lianna., C.M., M.P.H. LAB BLOOD ADD-ON [facility] [address] [place], [place] [phone] [place] [address] * (ABNORMAL) CRP (C-Reactive Protein) (07/25/2022 5:53 PM CDT) [facility] C-Reactive Protein (CRP), S 5.1(H) <5.0 mg/L 07/25/2022 6:35 PM CDT [facility]TL Blood (Blood, Venous) 07/25/2022 5:53 PM CDT 07/25/2022 6:12 PM CDT Sivan Garcia M.D., M.D., CSherly., M.P.H. LAB BLOOD ADD-ON [facility] [address] [place] [address], [facility] DTL [facility] [address] [place] [address] * HBV DNA Detect/Quant, Serum (07/25/2022 5:53 PM CDT) [facility] HBV DNA Detect/Quant, S Undetected Undetected IU/mL 07/26/2022 1:37 PM CDT [facility] Comment: Result in log IU/mL is Undetected. ----ADDITIONAL INFORMATION---- The quantification range of this assay is 10 to 1,000,000,000 IU/mL (1.00 log to 9.00 log IU/mL). Testing was performed using the scotty HBV test ([employer] with the scotty [employer]0 System. Blood (Blood, Venous) 07/25/2022 5:53 PM CDT 07/25/2022 8:16 PM CDT Sivan Garcia M.D., M.D., Brenda., M.P.H. LAB MICROBIOLOGY - BLOOD ORDERABLES Performing Organization Address City/[facility] Co de Phone Number [facility] [address] [place] [address] [facility] [address] [place] [address] [place] [address] * DNA Double-Stranded (dsDNA) Antibodies, IgG (07/25/2022 5:53 PM CDT) [facility] DNA Double-Stranded Ab, IgG, S <12.3 <30.0 (Negative) IU/mL 07/26/2022 1:49 PM CDT [facility] Blood (Blood, Venous) 07/25/2022 5:53 PM CDT 07/25/2022 8:10 PM CDT Sivan Garcia M.D., M.D., CSherly., M.P.H. LAB BLOOD ADD-ON [facility] [address] [place] [address] [facility] [address] [place] [address] * HCV Ab w/Reflex to HCV PCR, Serum (07/25/2022 5:53 PM CDT) HCV Ab, S Negative Negative 07/25/2022 10:29 PM CDT [facility] Comment:Siolmd-it-oubphf rat io is <1.00. Blood (Blood, Venous) 07/25/2022 5:53 PM CDT 07/25/2022 7:54 PM CDT Sivan Garcia M.D., M.D., C.Tr., M.P.H. LAB MICROBIOLOGY - BLOOD ORDERABLES Performing Organization Address [facility]/ZIP Co de Phone Number [facility] [address] [place] [address] [facility] [address] [place] [address] * HBc Total Ab, Serum (07/25/2022 5:53 PM CDT) [facility] HBc Total Ab, S Negative Negative 07/25/2022 10:16 PM CDT [facility] Blood (Blood, Venous) 07/25/2022 5:53 PM CDT 07/25/2022 7:54 PM CDT Sivan Garcia M.D., M.D., C.M., M.P.H. LAB MICROBIOLOGY - BLOOD ORDERABLES Performing Organization Address City/[facility]/ZIP Co de Phone Number [facility] [address] [place] [address] [facility] [address] [place] [address] * HBs Antibody, Serum (07/25/2022 5:53 PM CDT) Pathologist [facility] HBs Antibody, S Negative 07/25/2022 10:17 PM CDT [facility] Comment: Patient is presumed to be not immune to infection with HBV. ----REFERENCE VALUE---- Unvaccinated: Negative Vaccinated: Positive HBs Antibody, Quantitative, S <5.0 mIU/mL 07/25/2022 10:17 PM CDT [facility] Comment: ----REFERENCE VALUE---- Unvaccinated: <5.0 Vaccinated: >=12.0 Blood (Blood, Venous) 07/25/2022 5:53 PM CDT 07/25/2022 7:54 PM CDT Sivan Garcia M.D., M.D., C.M., M.P.H. LAB MICROBIOLOGY - BLOOD ORDERABLES Performing Organization Address City/[facility]/ZIP Co de Phone Number [place] [address] [place], [place] [phone] [place] [address] [place] [address] * Hepatitis B Surface Antigen (07/25/2022 5:53 PM CDT) [facility] HBs Antigen, S Negative Negative 07/25/2022 10:13 PM CDT [facility] Blood (Blood, Venous) 07/25/2022 5:53 PM CDT 07/25/2022 7:54 PM CDT Sivan Garcia M.D., M.D., C.M., M.P.H. LAB MICROBIOLOGY - BLOOD ORDERABLES [facility] [address] [place] [address] [place] [address] * (ABNORMAL) Monoclonal Gammopathy Diagnostic (07/25/2022 5:53 PM CDT) [facility] Therapeutic Antibody Administered? No 07/26/2022 6:16 AM CDT [facility] Total Protein, S 7.0 6.3 - 7.9 g/dL 07/26/2022 7:52 AM CDT [facility] New Alluwe Free Light Chain, S 2.55(H) 0.3300 - 1.94 mg/dL 07/26/2022 9:46 AM CDT [facility] Lambda Free Light Chain, S 1.83 0.5700 - 2.63 mg/dL 07/26/2022 9:46 AM CDT [facility] New Alluwe/Lambda FLC Ratio 1.39 0.2600 - 1.65 07/26/2022 [...] developed and its performance characteristics determined by [facility] in a manner consistent with CLIA requirements. This test has not been cleared or approved by the U.S. Food and Drug Administration. Blood (Blood, Venous) 07/25/2022 5:53 PM CDT 07/26/2022 6:15 AM CDT Narrative [facility] - 07/27/2022 8:07 PM CDT Specimen Information: Specimen ID: [id number] Specimen Type: Blood Specimen Collection Start Date: 07/25/2022 ??5:53 PM Specimen Received Date: 07/26/2022 ??6:15 AM Specimen ID: [id number] Specimen Type: Blood Specimen Collection Start Date: 07/25/2022 ??5:54 PM Specimen Received Date: 07/26/2022 ??6:16 AM Sivan Garcia M.D., M.D., Darron, M.P.H. LAB BLOOD ADD-ON Performing Organization Address City/[facility]/ZIP Co de Phone Number [facility] [address] [place] [address] [facility] [address] [place], [place] [phone] [place] [address] [address] [place] [address] [place] [address] * Vitamin B12 Assay (07/25/2022 5:53 PM CDT) [facility] Vitamin B12 Assay, S 462 180 - [...] M.P.H. LAB BLOOD ADD-ON Performing Organization Address City/[facility]/ZIP Co de Phone Number [facility] [address] [place] [address], [facility] DTL [facility] [address] [place] [address] * Thyroid Function [place] (07/25/2022 5:53 PM CDT) Pathologist [facility] TSH, Sensitive 1.4 0.3 - 4.2 mIU/L 07/25/2022 6:35 PM CDT DT Blood (Blood, Venous) 07/25/2022 5:53 PM CDT 07/25/2022 6:12 PM CDT Sivan Garcia M.D., M.D., C.M., M.P.H. LAB BLOOD ADD-ON Performing Organization Address City/[facility]/ZIP Co de Phone Number [facility] [address] [place], [place] [phone] [place] [address] [address] [place] [address] * Phosphorus Inorganic (07/25/2022 5:53 PM CDT) [facility] Phosphorus (Inorganic), S 3.4 2.5 - 4.5 mg/dL 07/25/2022 6:35 PM CDT DT Blood (Blood, Venous) 07/25/2022 5:53 PM CDT 07/25/2022 6:12 PM CDT Sivan Garcia M.D., Lianna., C.M., M.P.H. LAB BLOOD ADD-ON [facility] [address] [place], [place] [phone] [place] [address] [address] [place] [address] * Magnesium (07/25/2022 5:53 PM CDT) [facility] Magnesium, S 2.0 1.7 - 2.3 mg/dL 07/25/2022 6:35 PM CDT DTL Blood (Blood, Venous) 07/25/2022 5:53 PM CDT 07/25/2022 6:12 PM CDT Sivan Garcia M.D., M.D., Brenda., M.P.H. LAB BLOOD ADD-ON Performing Organization Address City/[facility]/ZIP Co de Phone Number [facility] [address] [place] [address], [facility] [address] [place] [address] * CK (Creatine Kinase) (07/25/2022 5:53 PM CDT) Creatine Kinase (CK), S 205 39 - 308 U/L 07/25/2022 6:35 PM CDT DTL Blood (Blood, Venous) 07/25/2022 5:53 PM CDT 07/25/2022 6:12 PM CDT Sivan Garcia M.D., M.D., CSherly., M.P.H. LAB BLOOD ADD-ON Performing Organization Address [facility] Co de Phone Number [facility] [address] [place] [address], [facility] [address] [place] [address] * (ABNORMAL) Comprehensive Metabolic Panel (07/25/2022 5:53 [...] M.D., M.D., C.M., M.P.H. LAB BLOOD ADD-ON [facility] [address] [place] [address], [facility] [address] [place] [address] * (ABNORMAL) CBC with Differential, Blood (07/25/2022 [...] M.D., M.D., C.M., M.P.H. LAB BLOOD ADD-ON [facility] [address] [place] [address], [facility] [address] [place] [address] * DX Hips and Pelvis Bilateral 5+ [...] Neck documented in this encounter Care Teams Lode Miner Blasting Relationship Specialty Start Date End Date Elsewhere, Pcp PCP - General Family Medicine 03/09/17 documented as of this encounter
--- OUTSIDE RECORDS SUMMARY | 2023-05-05 10:47 | XMS_ITS | Clinical Summary ---
Author Name Unknown Organization [employer] [facility] Address [place], [place] [address] Care Team Providers Care Safety Intern Name Role Phone Stephen Carmichael MD Unavailable [phone] Tez Diane Unavailable Jordan Ha MD Primary Care Provider [phone] Mary Kay Herman SLICE PLUG CUTTER OPERATOR Unavailable [phone] Allergies Active Allergy Reactions Criticality Noted Date Comments Latex Erythema 07/15/[address] guided epidural injection Milk Based Formulas Other - Describe In Comment Field Low 12/31/2018 phlegm [place] Itching High 11/23/2016 Fresh Strawberries only Medications [...] history exists Medical Devices Implanted Type Area Instructional Technology Facilitator Device Identifier Shelf Expiration Date Model / Serial / Lot Jairon Lmbr 80x5.5mm Tsrh 3d Cvd Titnm - [id number] Implanted:Qty: 1 on 04/04/2019 by Andrew Rodriguez MD at [facility] Spine Implants Spine Medtronic Spine/Ortho [id number] / / Jairon Lmbr 70x5.5mm Tsrh 3d Cvd Titnm - [id number] Implanted:Qty: 1 on 04/04/2019 by Andrew Rodriguez MD at [facility] Spine Implants Spine Medtronic Spine/Ortho [id number]# / / [id number] one Matrix 10cc [place] Puttydbm Implanted:Qty: 1 on 04/04/2019 by Andrew Rodriguez MD at [facility] Explanted:at [facility] (Quantity not on file) Spine Medtronic Spine/Ortho 12/24/2021 [id number] / [id number] / [id number] 1-4mm 60cc Medtronic Fine Canclls Freeze Dried Implanted:Qty: 1 on 04/04/2019 by Andrew Rodriguez MD at [facility] Explanted:at [facility] (Quantity not on file) Spine Medtronic Spine/Ortho 06/19/2023 [id number] / [id number] / Set Screw Lmbr Tsrh 3dx - [id number] Implanted:Qty: 6 on 04/04/2019 by Andrew Rodriguez MD at [facility] Spine Medtronic Spine/Ortho [id number]# / / Cnnctr Lmbr Sm Tsrh 3dx Offsettitnm - [id number] Implanted:Qty: 6 on 04/04/2019 by Andrew Rodriguez MD at [facility] Spine Medtronic Spine/Ortho [id number]# / / Screw Lmbr Post 6.5x45mm Tsrh 3dx Og Thin Va - [id number] Implanted:Qty: 2 on 04/04/2019 by Andrew Rodriguez MD at [facility] Spine Medtronic Spine/Ortho [id number]# / / Screw Lmbr Post 6.5x50mm Tsrh 3dx Og Thin Va - [id number] Implanted:Qty: 4 on 04/04/2019 by Andrew Rodriguez MD at [facility] Spine Medtronic Spine/Ortho [id number] / / Spacer Lmbr 8-55v29bp 10deg Elevate Extra-Lordotic Peek Titn - [id number] Implanted:Qty: 2 on 04/04/2019 by Andrew Rodriguez MD at [facility] Spine Medtronic Spine/Ortho [id number]# / / [id number] Spacer Lmbr 8-10f08pp 10deg Elevate Extra-Lordotic Peek Titn - [id number] Implanted:Qty: 1 on 04/04/2019 by Andrew Rodriguez MD at [facility] Spine Medtronic Spine/Ortho 01/24/2027 [id number] / / [id number] Advance Directives Latest Code Status on File [...] 6:07 AM 01/17/2019 7:53 PM Care Teams Safety Intern Relationship Specialty Start Date End Date Jordan Ha MD [address] [place] [address] PCP - General Family Practice 12/19/18 Stephen Carmichael MD [address] [place] [address] 06/02/09 Tez Diane [address] [place] [address] [place] [address] 11/22/17 Mary Kay Herman NP [facility] [place] [address] Nurse Practitioner - Family 01/05/23
--- OUTSIDE RECORDS SUMMARY | 2023-05-05 10:47 | XMS_ITS | Encounter Summary ---
Author Name Unknown Organization [facility] Address [address] [place] [address] Care Team Providers Care Automobile Washer Steam Name Role Phone Elsewhere, Pcp Primary Care Provider Unavailabl e Reason for Visit * Outpatient (Routine) - Closed Specialty Diagnoses / Procedures Referred By Britany t Referred To Contact Pulmonary Medicine David Reynoso M.D. [address] [place] [phone] [facility] Referral ID Status Reason Start Date Expiration Date Visits Re quested Visits Authorized [id number] Closed 06/28/2022 06/27/2025 1 1 Encounter Details Date Type Department Care Team ([facility] st Contact Info) Description 06/28/2022 2:00 PM CDT Office Visit Division of Pulmonary Medicine in [place], [place] [address] [place] [phone] David Reynoso M.D. [address] [place] [phone] Paralysis Diaphragm (Primary Dx) Social History Tobacco [...] How often do you attend chur or mandaen services? More than 4 times per year 06/26/2022 Do you belong to any clubs o r organizations such as roman catholic groups, unions, fraternal or athletic groups, or [...] and heating? Not hard at all 06/26/2022 [facility] of Occupat ional Health - Occupational Stress [...] Sex Assigned at Male 04/09/2018 9:30 PM HEARING CONSULTANT Gender Identity Male 04/09/2018 9:30 PM HEARING CONSULTANT Sexual Orientation Straight 04/09/2018 9: 30 PM HEARING CONSULTANT documented as of this encounter Progress Notes * David Reynoso M.D. - 06/28/2022 2:00 PM CDT SUBJECTIVE [id number] progress note. ASSESSMENT / PLAN #1 Right [...] David Reynoso M.D. CT CT Job ID: [id number] documented in this encounter Plan of Treatment Not on file documented as of this encounter Visit Diagnoses Diagnosis Paralysis Diaphragm- Primary documented in this encounter Care Teams Automobile Washer Steam Relationship Specialty Start Date End Date Elsewhere, Pcp PCP - General Family Medicine 03/09/17 documented as of this encounter
--- OUTSIDE RECORDS SUMMARY | 2023-05-05 10:47 | XMS_ITS | Encounter Summary ---
Author Name Unknown Organization [facility] Address [address] [place] [address] Care Team Providers Care Trains Dispatcher Supervisor Name Role Phone Elsewhere, Pcp Primary Care Provider Unavailabl e Reason for Referral * Outpatient (Routine) - Closed Specialty Diagnoses / Procedures Referred By Contac t Referred To Contact Diagnoses Diaphragm Disorder Procedures DX Chest AP or PA and Lateral 2 Views David Reynoso M.D. 200 [place] [phone] [facility] Referral ID Status Reason Start Date Expiration Date Visits Re quested Visits Authorized [id number] Closed 06/28/2022 06/28/2023 1 1 Reason for Visit * Outpatient (Routine) - Closed Specialty Diagnoses / Procedures Referred By Contac t Referred To Contact Diagnoses Diaphragm Disorder Procedures DX Chest AP or PA and Lateral 2 Views David Reynoso M.D. [address] [place] [phone] [facility] Referral ID Status Reason Start Date Expiration Date Visits Re quested Visits Authorized [id number] Closed 06/28/2022 06/28/2023 1 1 Encounter Details Date Type Department Care Team (Latest Contact Info) Description 06/28/2022 10:27 AM CDT - 06/28/2022 11:59 PM CDT Hospital Encounter Department of Radiology, [facility], in [place], [place] [address] [place] [address] David Reynoso M.D. [address] [place] [address] Diaphragm Disorder Discharge Disposition: Home or Self [...] week 06/26/2022 [facility] services? More than 4 times per year [...] and heating? Not hard at all 06/26/2022 [facility] - Occupational Stress Questionnaire Answer Date [...] Sex Assigned at Male 04/09/2018 9:30 PM ELECTRIC BATH ATTENDANT Gender Identity Male 04/09/2018 9:30 PM ELECTRIC BATH ATTENDANT Sexual Orientation Straight 04/09/2018 9: 30 PM ELECTRIC BATH ATTENDANT documented as of this encounter Medications at [...] (four) times a day as needed. via freelance programmer/app developer tube; may also use every 4 hrs [...] Disorder documented in this encounter Care Teams Trains Dispatcher Supervisor Relationship Specialty Start Date End Date Elsewhere, Pcp PCP - General Family Medicine 03/09/17 documented as of this encounter
--- OUTSIDE RECORDS SUMMARY | 2023-05-05 10:47 | XMS_ITS | Encounter Summary ---
Author Name Unknown Organization [facility] Address [address] [place] [address] Care Team Providers Care Ophthalmic Technologist Name Role Phone Elsewhere, Pcp Primary Care Provider Unavailabl e Reason for Referral * MRI/CAT/PET Scan (Routine) - Closed Specialty Diagnoses / Procedures Referred By Contac t Referred To Contact Radiology Diagnoses Pain Shoulder Right Procedures CT Sternoclavicular Joint Bilateral without IV Contrast Trupti Aguayo P.A.-C., M.S. [address] [place] [phone] [facility] Referral ID Status Reason Start Date Expiration Date Visits Re quested Visits Authorized [id number] Closed 07/05/2022 07/05/2023 1 1 Reason for Visit * Reason Onset Date Comments Pre-visit Testing Orders 07/05/2022 Encounter Details Date Type Department Care Team (Latest Contact Info) Description 07/05/2022 Clinical Communication Department of Orthopedic Surgery in [place], [place] [address] [place] [phone] José Wright M.D., Ph.D. [address] [place] [phone] Pre-visit Testing Orders Social History Tobacco Use [...] How often do you attend chur or quaker services? More than 4 times per year 06/26/2022 Do you belong to any clubs o r organizations such as mosque groups, unions, fraternal or athletic groups, or [...] and heating? Not hard at all 06/26/2022 [facility] [place] [facility]at ional Health - Occupational Stress [...] Sex Assigned at Male 04/09/2018 9:30 PM FURNITURE MOVER HELPER Gender Identity Male 04/09/2018 9:30 PM FURNITURE MOVER HELPER Sexual Orientation Straight 04/09/2018 9: 30 PM FURNITURE MOVER HELPER documented as of this encounter Plan of [...] 08/15/2017. Trupti Aguayo P.A.-C., M.S. IMG CT CT OCEDURES documented in this encounter Visit Diagnoses Diagnosis Pain Shoulder Right- Primary Pain Shoulder Right documented in this encounter Care Teams Ophthalmic Technologist Relationship Specialty Start Date End Date Elsewhere, Pcp PCP - General Family Medicine 03/09/17 documented as of this encounter
--- OUTSIDE RECORDS SUMMARY | 2023-05-05 10:47 | XMS_ITS | Encounter Summary ---
Author Name Unknown Organization [facility] Address [address] [place] [address] Care Team Providers Care Clinical Staff Rn Name Role Phone Elsewhere, Pcp Primary Care Provider Unavailabl e Encounter Details Date Type Department Care Team (Late st Contact Info) Description 02/20/2003 Historical Ophthalmology RST OPH Kallie Rincon O.D. [address] [place] [address] Social History Tobacco Use Types Packs/Day Years Used Date Smoking Tobacco: Never Assessed Sex and Gender Information Value Date Recorded Sex Assigned at Male 04/09/2018 9:30 PM MANAGER FIELD SERVICE Gender Identity Male 04/09/2018 9:30 PM MANAGER FIELD SERVICE Sexual Orientation Straight 04/09/2018 9: 30 PM MANAGER FIELD SERVICE documented as of this encounter Progress Notes [...] OU, stable CDM Reports - EYEGEN Id: [id number] Status: Fnl documented in this encounter Plan of Treatment Not on file documented as of this encounter Visit Diagnoses Not on filedocumented in this encounter Care Teams Clinical Staff Rn Relationship Specialty Start Date End Date Elsewhere, Pcp PCP - General Family Medicine 03/09/17 documented as of this encounter
--- OUTSIDE RECORDS SUMMARY | 2023-05-05 10:47 | XMS_ITS | Encounter Summary ---
Author Name Unknown Organization [facility] Address [address] [place] [address] Care Team Providers Care Slab Polisher Name Role Phone Elsewhere, Pcp Primary Care Provider Unavailabl e Reason for Referral * Outpatient (Routine) - Closed Specialty Diagnoses / Procedures Referred By Britany t Referred To Contact Rheumatology Diagnoses Rheumatoid Arthritis Without Rheumatoid Factor Unspecified Site ([facility]) Jordan Ha M.D. [address] [place] [phone] [facility] Referral ID Status Reason Start Date Expiration Date Visits Re quested Visits Authorized [id number] Closed 06/23/2022 06/23/2023 1 1 * Outpatient (Routine) - Closed Specialty Diagnoses / Procedures Referred By Contac t Referred To Contact Pulmonary Medicine Diagnoses Diaphragm Disorder Jordan Ha M.D. [address] [place] [phone] [facility] Referral ID Status Reason Start Date Expiration Date Visits Re quested Visits Authorized [id number] Closed 06/23/2022 06/23/2023 1 1 Encounter Details Date Type Department Care Team (Late st Contact Info) Description 06/23/2022 [facility] [address] [place] [address] Jordan Ha M.D. [address] [address] Diaphragm Disorder (Primary Dx); Rheumatoid [...] any clubs o r organizations such as worship groups, unions, fraternal or athletic groups, or [...] and heating? Not hard at all 06/26/2022 [facility] - Occupational [...] Sex Assigned at Male 04/09/2018 9:30 PM SALON SALES CONSULTANT Gender Identity Male 04/09/2018 9:30 PM SALON SALES CONSULTANT Sexual Orientation Straight 04/09/2018 9: 30 PM SALON SALES CONSULTANT documented as of this encounter Plan of [...] (HCC) documented in this encounter Care Teams Slab Polisher Relationship Specialty Start Date End Date Elsewhere, Pcp PCP - General Family Medicine 03/09/17 documented as of this encounter
[2023-05-05 11:00] LABS: White Blood Count* 10.09 K/uL (4.50-11.00)
[2023-05-05 11:18] LABS: Albumin* 3.9 g/dL (3.3-5.0)
[2023-05-05 11:39] LABS: Vitamin D 25 Hydroxy* 35 ng/mL (30-80)
[2023-05-07 10:20] LABS: Prealbumin 28.6 mg/dL (20.0-40.0); Transferrin 269 mg/dL (200-360)
== END 2023-05-05 10:42 | disposition home or self-care (01) ==
LOC: NPINS 10:41
PROVIDERS: PCP Family Medicine; Visit Provider Orthopaedic Surgery
DX: M79.673 Pain in unspecified foot (principal)
CPT/HCPCS: 82040; 82306; 84134; 84466; 85048

== ENCOUNTER 2023-06-06 08:37 | Outpatient (CLI) | payer MEDICARE, BC, SELFPAY | END 2023-06-06 08:38 | disposition home or self-care (01) | LOC: NFLDREF 06-09 07:10 | PROVIDERS: PCP Family Medicine; Referring Provider Family Medicine; Visit Provider Family Medicine | DX: E78.5 Hyperlipidemia, unspecified (principal) | CPT/HCPCS: 80061 ==

== ENCOUNTER 2023-12-04 09:02 | Outpatient (CLI) | payer MEDICARE, BC, SELFPAY ==
--- OUTSIDE RECORDS SUMMARY | 2023-12-04 09:09 | XMS_ITS | Encounter Summary ---
Author Organization [facility] Address [address] [place] [address] Care Team Providers Care Motion Picture Cameraman Name Role Phone Elsewhere, Pcp Primary Care Provider Unavailabl e Encounter Details Date Type Department Care Team (Late st Contact Info) Description 02/20/2003 Historical Ophthalmology RST OPH Kallie Rincon O.D. [address] [place] [phone] Social History Tobacco Use Types Packs/Day Years Used Date Smoking Tobacco: Never Assessed Sex and Gender Information Value Date Recorded Sex Assigned at Male 04/09/2018 9:30 PM PADDED PRODUCTS INSPECTOR TRIMMER Gender Identity Male 04/09/2018 9:30 PM PADDED PRODUCTS INSPECTOR TRIMMER Sexual Orientation Straight 04/09/2018 9: 30 PM PADDED PRODUCTS INSPECTOR TRIMMER documented as of this encounter Progress Notes [...] OU, stable CDM Reports - EYEGEN Id: [id number] Status: Fnl documented in this encounter Plan of Treatment Not on file documented as of this encounter Visit Diagnoses Not on filedocumented in this encounter Care Teams Motion Picture Cameraman Relationship Specialty Start Date End Date Elsewhere, Pcp PCP - General Family Medicine 03/09/17 documented as of this encounter
--- OUTSIDE RECORDS SUMMARY | 2023-12-04 09:09 | XMS_ITS ---
Author Organization [facility] Address [address] [place] [address] Care Team Providers Care Sr. Pricing Analyst Name Role Phone Unavailable Unavailable Unavailable Surgery Details Not on file Complications Check Surgery Details section. Procedure Estimated Blood Loss Check Surgery Details section. Procedure Findings Check Surgery Details section. Procedure Specimens Taken Check Surgery Details section.
--- OUTSIDE RECORDS SUMMARY | 2023-12-04 09:09 | XMS_ITS | Clinical Summary ---
Author Organization [facility] Address [address] [place] [address] Care Team Providers Care Foot Roentgenologist Name Role Phone Elsewhere, Pcp Primary Care Provider Unavailabl e Source Comments Patient records contain information from all sites at [facility]. For routine questions regarding patient records, call [phone] during business hours, M-F 8:00 AM - 5:00 PM Central Time. Record requests for emergency care only can be directed to [phone] at any time.[facility] Allergies Active Allergy Reactions Criticality Noted Date Comments Latex Other (see comments) 07/15/[address] guided epidural injection [place] Other (see comments),Itching High 11/23/2016 Strawberries Fresh Strawberries only Medications Medication Sig Dispensed Refills Start Date End Date Status Rx albuterol (RX PROVENTIL HFA,VENTOLIN HFA) 90 mcg/actuation inhaler Inhale 2 puffs 4 (four) times a day as needed. via neurology technologist tube; may also use every 4 hrs as needed. 07/08/2015 Active meloxicam (MOBIC) 15 mg tablet Take 1 tablet by mouth daily. 10/19/2011 Active fenofibrate nanocrystallized (TRICOR) 145 mg tablet Take 1 tablet by mouth daily. 10/19/2011 Active acetaminophen (TYLENOL ARTHRITIS ORAL) Take 1 tablet by mouth daily as needed (pain). Takes 1 once a day to twice a day 07/17/2009 Active hydrocodone/acetaminophe n (VICODIN ORAL) Take 0.5-1 tablets by mouth at bedtime as needed. 5/500 mg (1/2 tab -uses about 3 times a month for back pain) 10/19/2011 Active sildenafil (REVATIO) 20 mg tablet Take 40mg daily if needed 12/21/2018 Active hydroCHLOROthiazide (HYDRODIURIL) 25 mg tablet Take 1 tablet by mouth daily. 12/21/2018 Active tiZANidine (ZANAFLEX) 2 mg tablet Take 2 mg by mouth at bedtime. For right leg muscle spasm 06/25/2022 Active azithromycin (ZITHROMAX) 250 mg tablet Take 250 mg by mouth as needed. 04/04/2022 Active Flowflex COVID-19 Ag Home Test kit use as directed* 07/26/2022 Activ e methylPREDNISolone (MEDROL) 4 mg tablet Take 4 mg by mouth daily. Active mv-min/folic/K1/lycopen/ lutein (MEN 50 PLUS MULTIVITAMIN ORAL) Take 1 tablet by mouth daily. Active Active Problems Problem [...] often do you attend chur ch or amish services? More than 4 times per year 06/26/2022 Do you belong to any clubs o r organizations such as orthodox groups, unions, fraternal or athletic groups, or [...] and heating? Not hard at all 06/26/2022 [facility] [place] of Occupat ional Health - Occupational Stress [...] place to sleep or slept in a group home (including now)? No 06/26/2022 Nutrition Answer [...] Sex Assigned at Male 04/09/2018 9:30 PM FUR FEEDER Gender Identity Male 04/09/2018 9:30 PM FUR FEEDER Sexual Orientation Straight 04/09/2018 9: 30 PM FUR FEEDER Last Filed Vital Signs Vital Sign Reading [...] Zoster Vaccines (2 of 3) 04/17/2012 02/21/2012 Depression Screening (Annual PHQ-2) 03/20/2023 Fall Risk Screen (Annual) 03/20/2023 COVID-19 Vaccine (4 - 2022-2 4 season) 2023 02/18/2021, 06/23/2020, 05/26/2020 Influenza Vaccine (#1) 2023 , 01/17/2022, 02/09/2021, Additional history exists Fasting Glucose for Diabetes Screening 07/25/2025 07/25/2022, 04/05/2019, 01/20/2019, Additional history exists Colonoscopy 09/12/2032 09/12/2022, 05/2012 (Performed elsewhere), 02/20/2003 Colorectal Cancer Screening 09/12/2032 DTaP,Tdap,and Td Vaccines (4 - Td or Tdap) 04/17/2033 04/17/2023, 02/19/2013, 02/04/2013, Additional history exists Pneumococcal vaccine (65+ years) Completed 01/25/2017, 01/15/2015, 03/20/2007, Additional history exists Medical Devices Implanted Type Area Under Baster Device Identifier Shelf Expiration Date Model / Serial / Lot Ocular Lens-03/20/1997 Implanted:03/1997 (Quantity not on file) Ocular Lens Bilatera l: Eye Description:Both eyes Spine Implant-03/20/19 20 Implanted:03/2019 (Quantity not on file) Spine Implant Bilatera l: Back Procedures Procedure Name Priority Date/Time Associated Diagnosis Comments COMPREHENSIVE METABOLIC PANEL, S/P Routine 07/25/2022 5:53 PM CDT Arthritis Inflammatory (HCC) Pain Foot Right Pain Low Back Chronic Pain Neck from Last 3 Months or Most Recently Relevant to Health Maintenance Results * (ABNORMAL) Comprehensive Metabolic Panel (07/25/2022 5:53 [...] 07/25/2022 6:12 PM CDT Sivan Garcia M.D., C.M., M.P.H. LAB BL OOD ADD-ON [facility] [address] [place] [address], [place] DTL [facility] [address] [place] [address] from Last 3 Months or Most Recently Relevant to Health Maintenance Care Teams Foot Roentgenologist Relationship Specialty Start Date End Date Elsewhere, Pcp PCP - General Family Medicine 03/09/17
--- OUTSIDE RECORDS SUMMARY | 2023-12-04 09:09 | XMS_ITS | Clinical Summary ---
Author Organization [employer] [facility] Address [place], [place] [address] Care Team Providers Care Managed Care Nurse Name Role Phone Stephen Carmichael MD Unavailable [phone] Tez Diane Unavailable Jordan Ha MD Primary Care Provider Mary Kay Herman POLYSTYRENE MOLDING MACHINE TENDER Unavailable [phone] Allergies Active Allergy Reactions Criticality Noted Date Comments Latex Erythema 07/15/[address] guided epidural injection Milk Based Formulas Other - Describe In Comment Field Low 12/31/2018 phlegm [place] Itching High 11/23/2016 Fresh Strawberries only Medications [...] by mouth once daily with a meal. Active tiZANidine (ZANAFLEX) 2 mg tablet take 1 tablet by mouth every 8 hours as needed for muscle spasticity 06/25/2022 Active meloxicam 15 mg tablet Take 15 mg by mouth once daily. 07/13/2022 Active amitriptyline (ELAVIL) 25 mg tabletIndications:Inso mnia, unspecified type,Pain Take 1 Tablet (25 mg) by mouth at bedtime. 30 Tablet 01/05/2023 Active overnight oximetryIndications:Mo rning headache,Diaphragm dysfunction For home use. 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 Seronegative rheumatoid arthritis 03/20/1989 Overview (01/20/2019): on periodic steroid pulses, did not tolerate MTX/Plaquenil Spinal stenosis of lumbar region Asthma Sleep apnea Overview (01/20/2019): On CPAP Immunizations Name Administration Dates Next Due COVID-19 vaccine (Moderna 100mcg/0.5mL) PF, MDV 06/23/2020,05/26/2020 Influenza A (H1N1), Inactivated 01/28/2009 Influenza RIV4 (Age 18+ Year s) PRESERV FREE 12/21/2018 Influenza Virus, Unspecified 02/21/2012, 02/26/2011,12/31/2007,2006,03/08/2006,01/21/2005,01/05/2004,1 04/06/2002,12/21/2001,02/27/2001 Influenza, High-dose Inactivated 01/04/2017,11,01/28/2013 Influenza, IIV3 (Age 6-35 mos) 02/19/2013,2008 Influenza, IIV3 (Age >=3 years) 01/29/20 13,02/21/2012,12/31/2007,2006,03/08/2006,01/21/2005,01/05/2004,1 04/06/2002,12/21/2001,02/27/2001 Pneumococcal Poly,23-Valent (Pneumovax) 01/25/2017,02/27/2001 Pneumococcal conj [...] 03/27/2020 03/27/2019, 02/21/2019, 01/28/2019, Additional history exists Tetanus booster 02/19/2023 02/19/2013, 01/18, 12/21/2001, Additional history exists COVID-19 vaccine series ( season) 2023 02/18/2021, 06/23/2020, 05/26/2020 Influenza for age 65+ 11/19/2023 12/21/2018 , 01/04/2017, 02/07/2016, Additional history exists Colonoscopy through age 75 09/13/2027 09/12/2022 Tdap Completed 02/19/2013, 02/04/2013 Pneumococcal series for age 65+ Completed 01/25/2017, 01/15/2015, 03/20/2007, Additional history exists Medical Devices Implanted Type Area Typesetters Printer Device Identifier Shelf Expiration Date Model / Serial / Lot Jairon Lmbr 80x5.5mm Tsrh 3d Cvd Titnm - [id number] Implanted:Qty: 1 on 04/04/2019 by Andrew Rodriguez MD at [facility] Spine Implants Spine Medtronic Spine/Ortho [id number] / / Jairon Lmbr 70x5.5mm Tsrh 3d Cvd Titnm - [id number] Implanted:Qty: 1 on 04/04/2019 by Andrew Rodriguez MD at [facility] Spine Implants Spine Med[employer]onic Spine/Ortho [id number]# / / [id number] one Matrix 10cc Brooks Puttydbm Implanted:Qty: 1 on 04/04/2019 by Andrew Rodriguez MD at [facility] Explanted:at [facility] (Quantity not on file) Spine Medtronic Spine/Ortho 12/24/2021 [id number] / [id number] / [id number] one 1-4mm 60cc Medtronic Fine Canclls Freeze Dried Implanted:Qty: 1 on 04/04/2019 by Andrew Rodriguez MD at [facility] Explanted:at [facility] (Quantity not on file) Spine Medtronic Spine/Ortho 06/19/2023 [id number] / [id number] / Set Screw Lmbr Tsrh 3dx - [id number] Implanted:Qty: 6 on 04/04/2019 by Andrew Rodriguez MD at [facility] Spine [employer]onic Spine/Ortho [id number] / / Cnnctr Lmbr Sm Tsrh 3dx Offsettitnm - [id number] Implanted:Qty: 6 on 04/04/2019 by Andrew Rodriguez MD at [facility] Spine [employer] Spine/Ortho [id number]# / / Screw Lmbr Post 6.5x45mm Tsrh 3dx Og Thin Va - [id number] Implanted:Qty: 2 on 04/04/2019 by Andrew Rodriguez MD at [facility] Spine Med[employer]onic Spine/Ortho [id number] / / Screw Lmbr Post 6.5x50mm Tsrh 3dx Og Thin Va - [id number] Implanted:Qty: 4 on 04/04/2019 by Andrew Rodriguez MD at [facility] Spine [employer]onic Spine/Ortho [id number]# / / Spacer Lmbr 8-13i16xo 10deg Elevate Extra-Lordotic Peek Titn - [id number] Implanted:Qty: 2 on 04/04/2019 by Andrew Rodriguez MD at [facility] Spine [employer]onic Spine/Ortho [id number]# / / [id number] Spacer Lmbr 8-37h45md 10deg Elevate Extra-Lordotic Peek Titn - [id number] Implanted:Qty: 1 on 04/04/2019 by Andrew Rodriguez MD at [facility] Spine Med[employer]onic Spine/Ortho 01/24/2027 [id number] / / [id number] Procedures Procedure Name Priority Date/Time Associated Diagnosis Comments COLONOSCOPY 09/12/2022 12:24 PM CDT from Last 3 Months or Most Recently Relevant to Health Maintenance Results * COLONOSCOPY (09/12/2022 12:24 PM CDT) 09/12/2022 12:2 4 PM CDT Narrative Transcriptions Madie Watts, - 09/12/2022 1:20 PM CDT Patient Name: Anders Ernst Jr Procedure Date: 09/12/2022 Gender: Male Date of : 1950 Admit Type: Ambulatory Procedure: Colonoscopy Proceduralist: Madie Watts MD [facility] Indications/Pre-Op Diagnosis: Screening for colorectal malignant neoplasm, Last colonoscopy 10 years ago Medications: Monitored Anesthesia Care Procedure Description: The patient had risks, benefits and alternatives explained to andgave informed consent. The patient had a stable cardiopulmonary status and judged an adequate candidate for conscious sedation. The endoscope [id number] was passed through the anus andadvanced to the cecum, identified by appendiceal orifice and ileocecal valve.The colonoscopy was performed without difficulty. The patient toleratedthe procedure well. The quality of the bowel preparation was good. The ileocecal valve, appendiceal orifice, and rectum were photographed. Complications: No immediate complications. Estimated Blood Loss & Specimen: Estimated blood loss: none. Specimen collected - Yes and sent to Laboratory Findings: A 4 mm polyp was found in the ascending colon. The polyp was sessile. The polyp was removed with a hot snare. Resection and retrieval were complete. Verification of patient identification for the specimen was done. Estimated blood loss was minimal. Multiple small and large-mouthed diverticula were found in thesigmoid colon. Non-bleeding internal hemorrhoids were found during retroflexion. The hemorrhoids were Grade II (internal hemorrhoids that prolapse butreduce spontaneously). Impressions/Post-Op Diagnosis: - One 4 mm polyp in the ascending colon, removed with a hot snare. Resected and retrieved. - Diverticulosis in the sigmoid colon. - Non-bleeding internal hemorrhoids. Recommendation: - Discharge patient to home. - Patient has a contact number available for emergencies. The signsand symptoms of potential delayed complications were discussed with the patient. Return to normal activities tomorrow. Written discharge instructions were provided to the patient. - High fiber diet. - Continue present medications. - Await pathology results. - No recommendation at this time regarding repeat colonoscopy due toage. Moderate Sedation: Moderate (conscious) sedation was personally administered by an anesthesia professional. The following parameters were monitored:oxygen saturation, heart rate, blood pressure, and response to care. Madie Watts MD 09/12/2022 1:20:01 PM This report has been signed electronically. Note Initiated On: 09/12/2022 12:24 PM Madie Watts DO PROCEDURE ORD from Last 3 Months or Most Recently Relevant to Health Maintenance Advance Directives * Full Code (Latest Code Status on File) Date Activated Date Inactivated Comments 09/12/2022 11:19 AM 09/12/2022 4:30 PM Question Answer Comments Code Status Discussion: Discussed * Full Code Date Activated Date Inactivated Comments 04/04/2019 7:46 PM 04/07/2019 2:44 PM Question Answer Comments Code Status Discussion: Not Discussed * Full Code Date Activated Date Inactivated Comments 04/04/2019 1:19 PM 04/04/2019 7:45 PM Question Answer Comments Code Status Discussion: Not Discussed * Full Code Date Activated Date Inactivated Comments 01/20/2019 5:38 AM 01/22/2019 2:29 PM * Full Code Date Activated Date Inactivated Comments 01/16/2019 6:07 AM 01/17/2019 7:53 PM Care Teams Managed Care Nurse Relationship Specialty Start Date End Date Jordan Ha MD [address] [place] [phone] PCP - General Family Practice 12/19/18 Stephen Carmichael MD [address] [place] [address] 06/02/09 Tez Diane [address] [place] [address] 11/22/17 Mary Kay Herman, [place] [address] [place] [address] Nurse Practitioner - Family 01/05/23
--- OUTSIDE RECORDS SUMMARY | 2023-12-04 09:09 | XMS_ITS | Clinical Summary ---
Author Organization [employer] Address [address], [place] [address] Care Team Providers Care Asset Protection Officer Name Role Phone Tez Diane MD Primary Care Provider [phone] Source Comments You are receiving this document as you are listed as the primary care provider,follow-up provider, or the patient has been referred to you for consultation.This is in compliance with the Medicare and[facility] Hospitalca[facility] EHR Incentive Program,which states Providers who transition their patient to another setting of careor provider of care or refers their patient to another provider of care shouldprovide summary care record for each transition of care or referral. [email or web address] Allergies Active Allergy Reactions Criticality Noted Date [...] 1984 Zoster/Shingles (2 of 3) 04/17/2012 02/21/2012 DTaP/Tdap/Td (3 - Tdap) 02/19/2023 02/20/20 13, 02/04/2013, 12/21/2001 COVID-19 Vaccine (3 season) 2023 06/23/2020, 05/26/2020 Influenza (#1) 2023 12/20/2019, 1006/2018, 01/04/2017, Additional history exists RSV (1 - 1-dose 75+ series) 2024 Pneumococcal 65+ Yrs Completed 01/25/2017, 01/15/2015, 03/20/2007, [...] age to complete this topic Care Teams Asset Protection Officer Relationship Specialty Start Date End Date Tez Diane MD [address] [place] [address] PCP - General 08/12/11
--- OUTSIDE RECORDS SUMMARY | 2023-12-04 09:09 | XMS_ITS | Referral Summary ---
Author Organization [facility] Address [address] [place] [address] Care Team Providers Care Supervisor Pumping Name Role Phone Elsewhere, Pcp Primary Care Provider Unavailabl e Source Comments Patient records contain information from all sites at [facility]. For routine questions regarding patient records, call [phone] during business hours, M-F 8:00 AM - 5:00 PM Central Time. Record requests for emergency care only can be directed to [phone] at any time.[facility] Allergies Active Allergy Reactions Criticality Noted Date Comments Latex Other (see comments) 07/15/[address] guided epidural injection [place] Other (see comments),Itching High 11/23/2016 Strawberries Fresh Strawberries only Medications Medication Sig Dispensed Refills Start Date End Date Status Rx albuterol (RX PROVENTIL HFA,VENTOLIN HFA) 90 mcg/actuation inhaler Inhale 2 puffs 4 (four) times a day as needed. via circuit court clerk tube; may also use every 4 hrs [...] often do you attend chur ch or holiness services? More than 4 times per year [...] and heating? Not hard at all 06/26/2022 [facility] [place] [facility] - Occupational Stress [...] place to sleep or slept in a longterm (including now)? 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 LAB BL OOD ADD-ON [facility] [address] [place] [address], [facility] [address] [place] [address] from Last 3 Months or Most Recently Relevant to Health Maintenance Care Teams Supervisor Pumping Relationship Specialty Start Date End Date Elsewhere, Pcp PCP - General Family Medicine 03/09/17
== END 2023-12-04 09:03 | disposition home or self-care (01) ==
PROVIDERS: PCP Family Medicine; Visit Provider Family Medicine
DX: Z01.818 Encounter for other preprocedural examination (principal); I10 Essential (primary) hypertension; E78.5 Hyperlipidemia, unspecified
CPT/HCPCS: 80053; 80061; 80323; 82306

== ENCOUNTER 2024-12-20 10:00 | Outpatient (CLI) | payer MEDICARE, BC, SELFPAY | END 2024-12-20 10:01 | disposition home or self-care (01) | LOC: NFLDREF 12-23 14:17 | PROVIDERS: PCP Family Medicine; Referring Provider Family Medicine; Visit Provider Family Medicine | DX: Z01.818 Encounter for other preprocedural examination (principal); Z12.5 Encounter for screening for malignant neoplasm of prostate | CPT/HCPCS: 80048; 84403; G0103 ==